=== PATIENT | female | born 1955 | race Caucasian/White ===

== ENCOUNTER 2018-11-20 17:02 | Inpatient (IN) | payer MEDICARE, OTHER ==
[~2018-11-20] VITALS: Ht 157.5 cm; Wt 66.7 kg
[2018-11-20 20:00] VITALS: BP 111/66; PULSE 115; RESP 18
[2018-11-20 21:00] VITALS: Ht 157.5 cm; Wt 66.7 kg
[2018-11-20] MEDS ORDERED: CLZP100T PO (22:48)
[2018-11-20] MEDS ORDERED: EST2 PO (22:48)
[2018-11-20] MEDS ORDERED: PERP2TAB PO (22:48)
[2018-11-20] MEDS ORDERED: OMEP40CA6 PO (22:48)
[2018-11-20] MEDS ORDERED: TRAN10TA PO (22:48)
[2018-11-20] MEDS ORDERED: RANI150T35 PO (22:48)
[2018-11-20] MEDS ORDERED: VANC125C10 PO (22:48)
[2018-11-20] MEDS ORDERED: LEVO25TA PO (22:48)
[2018-11-20] MEDS ORDERED: METH20TA PO (22:48)
[2018-11-20] MEDS ORDERED: [UNRECOGNIZED DRUG - CODE] PO (22:48)
[2018-11-20] MEDS ORDERED: CELE200C PO (22:48)
[2018-11-20] MEDS ORDERED: DIAZ2TAB3 PO (22:48)
[2018-11-20] MEDS ORDERED: DIVA-16 PO ×2 (22:48)
[2018-11-20] MEDS ORDERED: GABA100C14 PO (22:48)
[2018-11-20] MEDS ORDERED: HYDR-3980 PO (22:48)
[2018-11-20] MEDS ORDERED: CHOL100062 PO (22:48)
[2018-11-20] MEDS ORDERED: MESA500C PO (22:48)
[2018-11-20] MEDS: HYDROCODONE/APAP (10/325) TAB PO PRN (23:12)
[2018-11-20] MEDS ORDERED: CLOZAPINE 100 MG TABLET PO SCH (23:30)
[2018-11-20] MEDS ORDERED: METHYLPHENIDATE 20 MG TAB PO SCH (23:30)
[2018-11-21] MEDS: PANTOPRAZOLE (EC) 40 MG TAB PO SCH ×3 (01:02→18:51)
[2018-11-21] MEDS: DIAZEPAM 2 MG TAB PO SCH ×3 (01:03→21:10)
[2018-11-21] MEDS: CELECOXIB 200 MG CAP PO SCH ×3 (01:03→21:09)
[2018-11-21] MEDS: DIVALPROEX (ER) 250 MG TAB PO SCH ×3 (01:04→21:10)
[2018-11-21] MEDS: RANITIDINE 150 MG TAB PO SCH ×3 (01:11→21:10)
[2018-11-21] MEDS: VANCOMYCIN HCL 250 MG/5ML POSYG PO SCH ×5 (02:12→23:29)
[2018-11-21] MEDS: PERPHENAZINE 4 MG TAB PO SCH ×3 (02:13→20:01)
[2018-11-21] MEDS: MESALAMINE (SR) 250 MG CAP PO SCH ×3 (02:13→21:09)
[2018-11-21] MEDS: ESTRADIOL 1 MG TAB PO SCH ×2 (02:13→21:10)
[2018-11-21 02:23] VITALS: BP 96/77; PULSE 104; RESP 18
[2018-11-21 07:00] VITALS: BP 106/62; PULSE 99; RESP 18
[2018-11-21] MEDS ORDERED: CELECOXIB 200 MG CAP PO SCH (09:00)
[2018-11-21] MEDS ORDERED: DIAZEPAM 2 MG TAB PO SCH (09:00)
[2018-11-21] MEDS ORDERED: PARNATE PO SCH (09:00)
[2018-11-21] MEDS: CHOLECALCIFEROL 1,000 UNIT TAB PO SCH (09:42)
[2018-11-21] MEDS: HYDROCODONE/APAP (10/325) TAB PO PRN ×3 (09:42→21:31)
[2018-11-21] MEDS: METHYLPHENIDATE 5 MG TAB PO SCH ×2 (11:56→17:00)
--- NOTE | 2018-11-21 13:21 | HP ---
DATE OF ADMISSION: 11/20/2018 CHIEF COMPLAINT: Right ankle fracture. C. diff colitis. HISTORY OF PRESENT ILLNESS: This is a 63-year-old female with a past medical history of Crohn diseas e, history of bipolar disorder, history of Beltre syndrome, history of hypothyroidism, history of obst ructive sleep apnea, who was admitted to an outside hospital with shortness of breath and cough. The patient stated that she was feeling weak. As a result, she was brought into the Emergency Room. Th e patient also stated prior to being brought to the Emergency Room, she felt dizzy, fell and twisted her ankle. Upon arrival to the Emergency Room, the patient was diagnosed initially with sepsis, was started on IV antibiotic therapy. The patient was also diagnosed with pneumonia. The patient was tr eated with bronchodilators, nebulizers. During the hospital course, the patient was then found out t o have C diff. colitis, was treated with oral vancomycin, was seen by manager immunology. Additional ly, the patient also noted to have right malleolar fracture, was seen by orthopedist and underwent op en reduction internal fixation of her right ankle fracture. However, given the patient's significant decline in premorbid state, the patient was transferred to [facility] for continue d care. Upon my evaluation of the patient at this time, she is currently stable. Denies any fevers, chills, nausea, vomiting. PAST MEDICAL HISTORY: As stated above, history of Crohn's disease, history of Beltre syndrome, histor y of osteoarthritis, history of bronchiectasis, history of sleep apnea, history of hypothyroidism, hi story of bipolar disorder, history of depression, history of fibromyalgia. PAST SURGICAL HISTORY: Status post open reduction internal fixation, left foot. FAMILY HISTORY: Beltre syndrome. MEDICATIONS: Medications have been reviewed. ALLERGIES: Have been reviewed. REVIEW OF SYSTEMS: A 14-point review of systems conducted. Pertinent positives stated in HPI, other rose negative. PHYSICAL EXAMINATION: VITAL SIGNS: Blood pressure is 106/62, pulse 99, respiration 18, temperature 97.3. HEENT: Head is normocephalic. NECK: Supple. HEART: Regular rate. LUNGS: Show diminished breath sounds at base. ABDOMEN: Soft, nontender to palpation without rebound or guarding. EXTREMITIES: Negative for clubbing, cyanosis, no edema in right leg. Left ankle is in a cast, clean , dry, intact. DERMATOLOGIC: No rashes. MUSCULOSKELETAL: No joint effusions. NEUROLOGIC: No focal deficits. The patient's medications have been reviewed. LABORATORY DATA: Has been reviewed. ASSESSMENT AND PLAN: 1. Right malleolar fracture. The patient is status post open reduction internal fixation. Patient is currently nonweightbearing. Will continue. Continue physical therapy, continue pain control. 2. Clostridium difficile colitis. Continue oral vancomycin. 3. Sepsis secondary to bronchiectasis. The patient has completed antibiotic course. 4. History of Crohn disease. The patient is currently on Pentaza. Will continue. Follow up with Víctor Rivers in outpatient setting. 5. Bipolar disorder. Continue Clozapine. 6. Anxiety disorder. Continue Valium. 7. Depression. Continue medical management. 8. History of Beltre syndrome. Continue to monitor. 9. Anemia. Continue to monitor hemoglobin and hematocrit levels. 10. Acute kidney injury. Etiology likely due to hemodynamics. Continue current treatment plan. Co ntinue supportive care, renally dose all meds. The patient's urinalysis was reviewed, does show evid ence of pyuria. We will check a urine culture. 11. Pyuria, rule out urinary tract infection. Check a urinary culture. 12. Gastrointestinal and deep vein thrombosis prophylaxis. 13. Attention deficit hyperactivity disorder. The patient is currently on methylphenidate. 14. Gastrointestinal and deep venous thrombosis prophylaxis. Please note I spent an additional 30 minutes of [id number] time with the patient discussing advance d directives and code status. The patient is FULL CODE. Dictated By: NICK ROSENBERG/KODAK Conf#: [id number] DID#: [id number]
--- NOTE | 2018-11-21 13:40 | CONS ---
DATE OF ADMISSION: 11/20/2018 DATE OF CONSULTATION: 11/21/2018 REHABILITATION POST-ADMISSION PHYSICIAN EVALUATION REHABILITATION IMPAIRMENT CATEGORY: Pulmonary debility secondary to acute respiratory failure, pneum onia and sepsis. ACTIVE COMORBIDITIES: 1. Other orthopedic injury with bimalleolar right ankle fracture status post open reduction internal fixation. 2. Acute kidney injury. 3. C. difficile. 4. History of bipolar disorder. 5. Crohn disease. 6. Fibromyalgia. 7. Hypothyroidism. 8. Legally blind. 9. History of uterine cancer. 10. Gastritis. 11. Impairments in self-care and mobility. HISTORY OF PRESENT ILLNESS: The patient is a 63-year-old female with a history of multiple medical c omorbidities who is status post a fall with resultant bimalleolar right ankle fracture. The patient was also admitted with acute respiratory failure, pneumonia and sepsis. The patient's hospital cours e was also notable for acute kidney injury secondary to dehydration. The patient's ankle fracture di d require an ORIF and patient has been made nonweightbearing to the right lower extremity. [facility] also notable for Clostridium difficile colitis. Patient noted to have signi ficant impairments in self-care and mobility as compared to baseline, and has been cleared to transfe r to the rehabilitation unit for comprehensive interdisciplinary rehab care. FUNCTIONAL HISTORY: Prior to recent events, she was independent in self-care tasks and mobility. Cu rrently, she requires moderate assist for self-care and mobility tasks. I have reviewed the preadmission screen and patient's current functional status is consistent with [facility] preadmission screen. FAMILY AND SOCIAL HISTORY: The patient lives at home in what she describes as a large mobile home. She hopes to return there upon discharge. PAST MEDICAL HISTORY: 1. Fibromyalgia. 2. Bipolar disorder. 3. Hypothyroidism. 4. Crohn's disease. 5. History of uterine cancer. 6. Gastritis. 7. Legally blind. CURRENT MEDICATIONS: 1. Pentaza. 2. Ritalin. 3. Parnate. 4. Celebrex. 5. Estradiol. 6. Levothyroxine. 7. Diazepam. 8. Omeprazole. 9. Ranitidine. 10. Lorazepam. 11. Vitamin B. ALLERGIES: DEMEROL and EPINEPHRINE. PHYSICAL EXAMINATION: VITAL SIGNS: She is currently afebrile with stable vital signs. HEENT: The patient with decreased visual acuity. Oropharynx clear. NECK: Supple. LUNGS: Clear anteriorly. CARDIAC: S1, S2. ABDOMEN: Soft, nontender, positive bowel sounds. NEUROLOGIC: She is awake and alert and oriented x3. She can follow simple 1-step commands. She dem onstrates antigravity strength in bilateral upper extremity and lower extremities. She has a notable short leg cast in place on the right lower extremity. She is neurovascularly intact, able to wiggle toes on the right lower extremity. PLAN: The patient has been admitted for comprehensive interdisciplinary acute rehab and is anticipat ed to tolerate 3 hours of daily therapy in divided doses for at least 5/7 days a week. The treatment plan will include: 1. Physical therapy to focus on bed mobility, transfers, wheelchair mobility, and limited household ambulation with the goal of having the patient reach a standby assist level. 2. Occupational therapy to focus on hygiene, grooming, dressing, bathing, and toileting activities w ith goal of having the patient reach a standby assist level at the seated level. 3. Rehabilitation nursing for carryover of therapeutic interventions, the goal of continent of bowel and bladder, and the goal of patient education with regard to the aforementioned issues. 4. Neuropsychology for assistance with adjustment to disease process and monitoring and treatment gi mayra the patient's history of bipolar disorder. REHABILITATION BARRIER: Nonweightbearing to the right lower extremity. INTERVENTION FOR BARRIER: Interdisciplinary approach. ESTIMATED LENGTH OF STAY: 14 days. DISPOSITION GOAL: Home. As a board certified rehabilitation services coordinator in physical medicine and rehabilitation, I attest that this patient qualifies for an interdisciplinary acute rehabilitation unit stay and is best managed a t this level of care. The patient is anticipated to make reasonable goals in a reasonable period of time. After a thorough review of the patient's medical records and full examination, I believe that the patient meets criteria for acute rehabilitation level of care under CMS guidelines. Dictated By: JONNIE THAYER/KODAK Conf#: [id number] DID#: [id number]
[2018-11-21 14:00] VITALS: BP 106/73; PULSE 120; RESP 18
[2018-11-21] MEDS ORDERED: TRANYLCYPROMINE 10 MG PO SCH (17:30)
[2018-11-21 20:00] VITALS: BP 110/68; PULSE 102; RESP 18
[2018-11-21] MEDS ORDERED: CLOZAPINE 100 MG TABLET PO SCH ×2 (21:00)
[2018-11-21] MEDS: CLOZAPINE 100 MG TABLET PO SCH (21:27)
[2018-11-22 02:00] VITALS: BP 112/69; PULSE 102; RESP 18
[2018-11-22] MEDS: VANCOMYCIN HCL 250 MG/5ML POSYG PO SCH ×5 (06:33→23:08)
[2018-11-22] MEDS: METHYLPHENIDATE 5 MG TAB PO SCH ×2 (06:34→08:23)
[2018-11-22] MEDS: PANTOPRAZOLE (EC) 40 MG TAB PO SCH ×3 (06:41→17:46)
[2018-11-22 08:00] VITALS: BP 103/64; PULSE 103; RESP 18
[2018-11-22] MEDS ORDERED: TRANYLCYPROMINE 10 MG PO SCH (09:00)
[2018-11-22] MEDS: MESALAMINE (SR) 250 MG CAP PO SCH ×2 (09:45→20:39)
[2018-11-22] MEDS: TRANYLCYPROMINE 10 MG PO SCH (09:45)
[2018-11-22] MEDS: CHOLECALCIFEROL 1,000 UNIT TAB PO SCH (09:46)
[2018-11-22] MEDS: DIAZEPAM 2 MG TAB PO SCH ×2 (09:46→20:40)
[2018-11-22] MEDS: PERPHENAZINE 4 MG TAB PO SCH ×2 (09:46→20:41)
[2018-11-22] MEDS: RANITIDINE 150 MG TAB PO SCH ×2 (09:46→20:38)
[2018-11-22] MEDS: CELECOXIB 200 MG CAP PO SCH ×2 (09:47→20:40)
[2018-11-22] MEDS: DIVALPROEX (ER) 250 MG TAB PO SCH ×2 (09:47→20:39)
--- NOTE | 2018-11-22 10:09 | PN ---
DATE: 11/22/2018 SUBJECTIVE: The patient is stable, no events overnight. No fevers, chills, nausea, or vomiting. OBJECTIVE: VITAL SIGNS: Blood pressure is 112/69, respirations 18, pulse 102, temperature is 98.1. HEENT: Head is normocephalic. NECK: Supple. HEART: Regular rate. LUNGS: Show diminished breath sounds at the base. ABDOMEN: Soft, nontender to palpation without rebound or guarding. EXTREMITIES: Negative for clubbing, cyanosis, no edema. DERMATOLOGIC: No rashes. MUSCULOSKELETAL: No joint effusion. NEUROLOGIC: No change in exam. MEDICATIONS: Reviewed. LABORATORY DATA: From 11/22/2018 was reviewed. ASSESSMENT AND PLAN: 1. Right malleolar fracture. The patient is status post open reduction internal fixation. Continue current treatment plan. Continue physical therapy and occupational therapy, continue pain control. 2. Clostridium difficile colitis. Continue oral vancomycin. We will place an ID consult for evalua tion. 3. Sepsis secondary to bronchiectasis. The patient is completing antibiotic course. 4. History of Crohn's disease. Continue Pentasa. 5. Bipolar disorder, schizophrenia. Continue to clozapine. 6. ADHD. Continue Ritalin. 7. Anxiety disorder. Continue Valium. 8. Depression. Continue medical management. 9. History of Beltre syndrome. Continue to monitor. 10. Anemia. Monitor hemoglobin and hematocrit levels. 11. Nonoliguric acute kidney injury. Etiology is secondary to hemodynamics. Renal function has bee n stable. Continue current treatment plans, supportive care, and renally dose all medicines. 12. Pyuria. The patient is being ruled out for urinary tract infection. Follow up urine culture. 13. Gastrointestinal and deep vein thrombosis prophylaxis. Continue proton pump inhibitor. Start t he patient on Lovenox. 14. Hypomagnesemia, replete with magnesium sulfate and magnesium oxide. Dictated By: NICK CORBIN DO NR/NTS Conf#: [id number] DID#: [id number] CC: JONNIE LAIRD MD; ANILA NATH DO;*EndCC*
[2018-11-22] MEDS: METHYLPHENIDATE 20 MG TAB PO SCH ×2 (11:00→15:00)
[2018-11-22] MEDS ORDERED: GENTAMICIN IV PER PHARMACY XX SCH (11:00)
[2018-11-22] MEDS ORDERED: GENTAMICIN 350 MG in DEXTROSE 5% 100 ML IVPB SCH (11:30)
[2018-11-22] MEDS: MAGNESIUM OXIDE 400 MG TAB PO SCH (12:47)
[2018-11-22] MEDS: HYDROCODONE/APAP (10/325) TAB PO PRN ×3 (12:48→23:04)
--- NOTE | 2018-11-22 12:53 | PN ---
Date/Time of Note Date/Time of Note DATE: 11/22/18 TIME: 12:52 Objective Vital Signs Date Temp Pulse Resp B/P (MAP) Pulse Ox O2 O2 Flow FiO2 Time Delivery Rate 11/22/18 3.0 04:41 11/22/18 98.1 102 18 112/69 97 Room Air 02:00 (83) Intake and Output 11/21/18 11/21/18 11/22/18 1515:00 23:00 07:00 IntakeIntake Total 800 ml 440 ml 360 ml OutputOutput Total 600 ml 90 ml BalanceBalance 200 ml 350 ml 360 ml Exam pulm-cta max transfer Results/Medications Result Diagram: 11/22/18 0653 11/22/18 0653 Results 24 hrs Laboratory Tests Test 11/22/18 06:53 White Blood Count 11.2 H Red Blood Count 3.29 L Hemoglobin 9.2 L Hematocrit 31.0 L Mean Corpuscular Volume 94.2 Mean Corpuscular Hemoglobin 28.0 L Mean Corpuscular Hemoglobin Concent 29.7 L Red Cell Distribution Width 15.0 H Platelet Count 170 Mean Platelet Volume 10.9 H Immature Granulocytes % 3.000 H Neutrophils % 61.8 Lymphocytes % 18.0 Monocytes % 10.2 Eosinophils % 4.9 Basophils % 2.1 H Nucleated Red Blood Cells % 0.0 Immature Granulocytes # 0.340 H Neutrophils # 6.9 Lymphocytes # 2.0 Monocytes # 1.1 H Eosinophils # 0.6 H Basophils # 0.2 H Nucleated Red Blood Cells # 0.0 Sodium Level 144 Potassium Level 4.4 Chloride Level 103 Carbon Dioxide Level 32 H Anion Gap 9 Blood Urea Nitrogen 34 H Creatinine 1.05 H Est Glomerular Filtrat Rate mL/min 53 L Glucose Level 101 Calcium Level 9.7 Phosphorus Level 5.0 H Magnesium Level 1.6 L Medications Current Medications Acetaminophen/ Hydrocodone Bitart ([place] (10/325)) 1 tab Q4H PRN PO MODERATE PAIN LEVEL 4-6 Last administered on 11/22/18at 12:48; Admin Dose 1 TAB; Start 11/20/18 at 23:30 Cholecalciferol (Vitamin D) 1,000 unit DAILY PO Last administered on 11/22/18at 09:46; Admin Dose 1,000 UNIT; Start 11/21/18 at 09:00 Divalproex Sodium (Depakote Er) 500 mg DAILY PO Last administered on 11/22/18 09:47; Admin Dose 500 MG; Start 11/21/18 at 09:00 Celecoxib (Celebrex) 200 mg BID PO Last administered on 11/22/18 09:47; Admin Dose 200 MG; Start 11/20/18 at 23:30 Diazepam (Valium) 2 mg BID PO Last administered on 11/22/18 09:46; Admin Dose 2 MG; Start 11/20/18 at 23:30 Divalproex Sodium (Depakote Er) 750 mg HS PO Last administered on 11/21/18 21:10; Admin Dose 750 MG; Start 11/20/18 at 23:30 Estradiol (Estrace) 2 mg HS PO Last administered on 11/21/18 21:10; Admin Dose 2 MG; Start 11/20/18 at 23:30 Mesalamine (Pentasa) 2,000 mg BID PO Last administered on 11/22/18 09:45; Admin Dose 2,000 MG; Start 11/20/18 at 23:30 Pantoprazole (Protonix Tab) 40 mg BID@0600,1800 PO Last administered on 11/22/18 08:21; Admin Dose 40 MG; Start 11/20/18 at 23:30 Perphenazine (Trilafon) 2 mg TID PRN PO AGITATION; Start 11/20/18 at 23:30 Perphenazine (Trilafon) 4 mg BID PO Last administered on 11/22/18 09:46; Admin Dose 4 MG; Start 11/21/18 at 01:00 Ranitidine HCl (Zantac) 150 mg BID PO Last administered on 11/22/18 09:46; Admin Dose 150 MG; Start 11/20/18 at 23:30 Vancomycin HCl (Vancomycin Oral Syringe) 125 mg Q6 PO Last administered on 11/22/18 12:47; Admin Dose 125 MG; Start 11/21/18 at 00:00 Clozapine (Clozaril) 200 mg HS PO Last administered on 11/21/18 21:27; Admin Dose 200 MG; Start 11/21/18 at 21:00 Tranylcypromine Sulfate (Parnate) 60 mg DAILY@0700 PO Last administered on 11/22/18 09:45; Admin Dose 60 MG; Start 11/22/18 at 07:00 Magnesium Oxide (Mag-Ox 400) 400 mg DAILY PO Last administered on 11/22/18at 12:47; Admin Dose 400 MG; Start 11/22/18 at 09:30 Enoxaparin Sodium (Lovenox) 30 mg DAILY SC ; Start 11/23/18 at 09:00 Methylphenidate HCl (Methylin) 20 mg TID@0700,1100,1500 PO ; Start 11/22/18 at 11:00 Gentamicin Sulfate 350 mg/ Dextrose 108.75 ml @ 108.75 mls/hr Q36H IVPB ; Start 11/22/18 at 11:30 Miscellaneous Information (*Rx Drug Level Order Reminder*) RANDOM GENTAMICIN LEVEL 4... 2300 ONCE XX ; Start 11/22/18 at 23:00; Stop 11/22/18 at 23:01 Assessment/Plan Additional Assessment/Plan Rehab- Pulmonary debility secondary to acute respiratory failure, pneumonia and sepsis; bimalleolar right ankle fracture status post ORIF Continue rehab program Acute kidney injury. C. difficile. History of bipolar disorder. Crohn disease. Fibromyalgia. Hypothyroidism. Legally blind. History of uterine cancer. Gastritis. JONNIE LAIRD MD Nov 22, 2018 12:53
--- NOTE | 2018-11-22 13:46 | CONS ---
DATE OF ADMISSION: 11/20/2018 DATE OF CONSULTATION: 11/22/2018 TYPE OF CONSULTATION: Infectious disease. REASON FOR CONSULTATION: Antibiotic management. HISTORY OF PRESENT ILLNESS: Dilcia Ruffin is a 63-year-old female with history of right ankle fractur e and Clostridium difficile colitis. Past problems include: 1. Crohn's disease. 2. Bipolar disorder. 3. History of Beltre syndrome. 4. Hypothyroidism. 5. Obstructive sleep apnea. She was admitted to an outside hospital with shortness of breath and cough and feeling of weakness. She came to the emergency room with dizziness. She fell and twisted her ankle. She was diagnosed wi th sepsis, started on IV antibiotics and diagnosed with pneumonia, treated with bronchodilators, nebu lizers and antibiotics. During the course of her hospital stay, she was found to have C. difficile a nd was treated with oral vancomycin. She was seen by gastroenterology. She had a right malleolar fr acture, was seen by orthopedics and underwent open reduction and internal fixation of the right ankle . Given the patient's significant decline and premorbid state, the patient was transferred to [facility] for continued care. The patient also has probable history of bro nchiectasis as well as osteoarthritis. PAST MEDICAL HISTORY: As outlined. FAMILY HISTORY: Noncontributory. SOCIAL HISTORY: She does not smoke, drink or abuse drugs. ALLERGIES: NONE TO PENICILLIN, SULFA OR FOODS. MEDICATIONS: Per chart. REVIEW OF SYSTEMS: Noncontributory. PHYSICAL EXAMINATION: GENERAL: The patient is afebrile. Vital signs are stable. SKIN: Without generalized rash. HEENT: Within normal limits. NECK: Supple. LYMPH NODES: None palpable. CHEST: Decreased breath sounds at the bases. HEART: Without murmur or gallop. ABDOMEN: Soft, nontender without organosplenomegaly or masses. EXTREMITIES: Without cyanosis, clubbing or edema. The left ankle is in a cast, clean and dry. RECTAL AND GENITAL: Deferred. NEUROLOGIC: No focal neurological abnormality. HOSPITAL COURSE: The patient's white count on was 9.9, today 11.2, H and H 9.2 and 31.0, platelet co unt 170,000. BUN and creatinine are 34/1.05. Urine is greater than 182 white cells per high powered field. Urine is growing gram-negative rods. She is on oral vancomycin. She has urinary tract infe ction. We are going to put her on gentamicin renal dosage. I will dictate my findings to Dr. Idalia lozada and Dr. Jonnie Vicente. Dictated By: SARAH OMALLEY MD, JD/KODAK Conf#: [id number] DID#: [id number] CC: JONNIE VICENTE MD; ANILA NATH DO;*[facility]*
[2018-11-22 14:00] VITALS: BP 115/75; PULSE 114; RESP 16
[2018-11-22 19:18] VITALS: BP 124/88; PULSE 71; RESP 18
[2018-11-22] MEDS: CLOZAPINE 100 MG TABLET PO SCH (20:37)
[2018-11-22] MEDS: ESTRADIOL 1 MG TAB PO SCH (20:39)
[2018-11-23 02:00] VITALS: BP 118/79; PULSE 87; RESP 18
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
[2018-11-23] MEDS: PANTOPRAZOLE (EC) 40 MG TAB PO SCH ×2 (06:43→17:58)
[2018-11-23] MEDS: VANCOMYCIN HCL 250 MG/5ML POSYG PO SCH ×3 (06:44→17:58)
[2018-11-23 07:00] VITALS: BP 95/56; PULSE 104; RESP 18
[2018-11-23] MEDS: METHYLPHENIDATE 20 MG TAB PO SCH ×3 (07:32→14:35)
[2018-11-23] MEDS: TRANYLCYPROMINE 10 MG PO SCH (07:33)
[2018-11-23] MEDS: CHOLECALCIFEROL 1,000 UNIT TAB PO SCH (08:52)
[2018-11-23] MEDS: RANITIDINE 150 MG TAB PO SCH ×2 (08:53→20:12)
[2018-11-23] MEDS: MESALAMINE (SR) 250 MG CAP PO SCH ×2 (08:54→20:14)
[2018-11-23] MEDS: DIAZEPAM 2 MG TAB PO SCH ×2 (08:55→20:13)
[2018-11-23] MEDS: MAGNESIUM OXIDE 400 MG TAB PO SCH (08:55)
[2018-11-23] MEDS: DIVALPROEX (ER) 250 MG TAB PO SCH ×2 (08:55→20:14)
[2018-11-23] MEDS: PERPHENAZINE 4 MG TAB PO SCH ×2 (08:55→20:15)
[2018-11-23] MEDS: ENOXAPARIN 30 MG/0.3 ML SYG SC SCH (08:57)
[2018-11-23] MEDS: HYDROCODONE/APAP (10/325) TAB PO PRN ×3 (08:57→20:12)
--- NOTE | 2018-11-23 09:23 | PN ---
DATE: 11/23/2018 SUBJECTIVE: The patient is stable, no events overnight. No fevers, chills, nausea, or vomiting. OBJECTIVE: VITAL SIGNS: Blood pressure is 95/56, respirations 18, pulse 104, temperature 97.7. HEENT: Head is normocephalic. NECK: Supple. HEART: Regular rate. LUNGS: Show diminished breath sounds at the base. ABDOMEN: Soft, nontender to palpation without rebound or guarding. EXTREMITIES: Negative for clubbing, cyanosis, no edema. DERMATOLOGIC: No rashes. MUSCULOSKELETAL: No joint effusion. NEUROLOGIC: No change in exam. MEDICATIONS: Reviewed. LABORATORY DATA: Reviewed. ASSESSMENT AND PLAN: 1. Right malleolar fracture. The patient is status post open reduction internal fixation. Continue current treatment plan. Continue physical therapy, and pain control. 2. C. difficile colitis. Continue oral vancomycin. Follow up with infectious disease. 3. Sepsis secondary to bronchiectasis. The patient is completing antibiotic course. 4. History of Crohn's disease. Continue Pentasa. 5. Bipolar disorder, schizophrenia. Continue current medical management. 6. ADHD. Continue Ritalin. 7. Anxiety disorder. Continue Valium. 8. Depression. Continue medical management. 9. History of Beltre syndrome. 10. Anemia. Continue to monitor hemoglobin and hematocrit levels. 11. Nonoliguric acute kidney injury. Etiology is likely due to hemodynamics. Plan is to discontinu e NSAIDs. Continue current treatment plan, supportive care, renally dose all medicines. 12. Pyuria, possible urinary tract infection. The patient is placed on gentamicin. Appreciate ID's evaluation. 13. Hypomagnesemia, status post replacement. Continue to monitor. 14. Gastrointestinal and deep vein thrombosis prophylaxis. Continue proton pump inhibitor and Loven ox. Dictated By: NICK CORBIN DO NR/NTS Conf#: [id number] DID#: [id number] CC: ANILA NATH DO; JONNIE LAIRD MD;*End*
--- NOTE | 2018-11-23 12:41 | PN ---
Date/Time of Note Date/Time of Note DATE: 11/23/18 TIME: 12:41 Subjective Comfortable Objective Vital Signs Date Temp Pulse Resp B/P (MAP) Pulse Ox O2 O2 Flow FiO2 Time Delivery Rate 11/23/18 Nasal 3.0 08:00 Cannula 11/23/18 97.7 104 18 95/56 (69) 97 07:00 Intake and Output 11/22/18 11/22/18 11/23/18 1515:00 23:00 07:00 IntakeIntake Total 908.75 ml BalanceBalance 908.75 ml Exam pulm-cta mod transfer Results/Medications Result Diagram: 11/22/18 0653 11/22/18 0653 Results 24 hrs Laboratory Tests Test 11/22/18 23:10 Random Gentamicin Level 6.5 Medications Current Medications Acetaminophen/ Hydrocodone Bitart ([place] (10/325)) 1 tab Q4H PRN PO MODERATE PAIN LEVEL 4-6 Last administered on 11/23/18 08:57; Admin Dose 1 TAB; Start 11/20/18 at 23:30 Cholecalciferol (Vitamin D) 1,000 unit DAILY PO Last administered on 11/23/18 08:52; Admin Dose 1,000 UNIT; Start 11/21/18 at 09:00 Divalproex Sodium (Depakote Er) 500 mg DAILY PO Last administered on 11/23/18 08:55; Admin Dose 500 MG; Start 11/21/18 at 09:00 Celecoxib (Celebrex) 200 mg BID PO Last administered on 11/22/18 20:40; Admin Dose 200 MG; Start 11/20/18 at 23:30; Status Hold Diazepam (Valium) 2 mg BID PO Last administered on 11/23/18 08:55; Admin Dose 2 MG; Start 11/20/18 at 23:30 Divalproex Sodium (Depakote Er) 750 mg HS PO Last administered on 11/22/18 20:39; Admin Dose 750 MG; Start 11/20/18 at 23:30 Estradiol (Estrace) 2 mg HS PO Last administered on 11/22/18 20:39; Admin Dose 2 MG; Start 11/20/18 at 23:30 Mesalamine (Pentasa) 2,000 mg BID PO Last administered on 11/23/18 08:54; Admin Dose 2,000 MG; Start 11/20/18 at 23:30 Pantoprazole (Protonix Tab) 40 mg BID@0600,1800 PO Last administered on 11/23/18 06:43; Admin Dose 40 MG; Start 11/20/18 at 23:30 Perphenazine (Trilafon) 2 mg TID PRN PO AGITATION; Start 11/20/18 at 23:30 Perphenazine (Trilafon) 4 mg BID PO Last administered on 11/23/18 08:55; Admin Dose 4 MG; Start 11/21/18 at 01:00 Ranitidine HCl (Zantac) 150 mg BID PO Last administered on 11/23/18 08:53; Admin Dose 150 MG; Start 11/20/18 at 23:30 Vancomycin HCl (Vancomycin Oral Syringe) 125 mg Q6 PO Last administered on 11/23/18 11:14; Admin Dose 125 MG; Start 11/21/18 at 00:00 Clozapine (Clozaril) 200 mg HS PO Last administered on 11/22/18 20:37; Admin Dose 200 MG; Start 11/21/18 at 21:00 Tranylcypromine Sulfate (Parnate) 60 mg DAILY@0700 PO Last administered on 11/23/18 07:33; Admin Dose 60 MG; Start 11/22/18 at 07:00 Magnesium Oxide (Mag-Ox 400) 400 mg DAILY PO Last administered on 11/23/18 08:55; Admin Dose 400 MG; Start 11/22/18 at 09:30 Enoxaparin Sodium (Lovenox) 30 mg DAILY SC Last administered on 11/23/18 08:57; Admin Dose 30 MG; Start 11/23/18 at 09:00 Methylphenidate HCl (Methylin) 20 mg TID@0700,1100,1500 PO Last administered on 11/23/18 11:12; Admin Dose 20 MG; Start 11/22/18 at 11:00 Gentamicin Sulfate 350 mg/ Dextrose 108.75 ml @ 108.75 mls/hr Q36H IVPB ; Start 11/24/18 at 02:00 Assessment/Plan Additional Assessment/Plan Rehab- Pulmonary debility secondary to acute respiratory failure, pneumonia and sepsis; bimalleolar right ankle fracture status post ORIF Continue rehab activities Acute kidney injury. C. difficile. History of bipolar disorder. Crohn disease. Fibromyalgia. Hypothyroidism. Legally blind. History of uterine cancer. Gastritis. JONNIE LAIRD MD Nov 23, 2018 12:41
[2018-11-23 14:00] VITALS: BP 100/71; PULSE 106; RESP 18
--- NOTE | 2018-11-23 15:48 | CONS ---
Assessment/Plan Assessment/Plan Hospital Course (Demo Recall) Alert sitting in the wheelchair denies pain no fevers overnight still with ulnar nerve diarrhea. WBC yesterday was 11.2 no labs today Antimicrobials: Oral vancomycin gentamicin Physical examination fragile well-developed elderly white woman who is alert in no distress. Head atraumatic normocephalic sclera nonicteric vehicle mucosa dry neck is supple chest rise symmetrical breath sounds diminished bases heart: S1- S2. Abdomen soft bowel sounds present. Extremities: Right lower extremity in the cast Assessment: 1. Urinary tract infection 2. C. difficile colitis 3. Crohn's disease 4. Bipolar disorder and schizophrenia Plan: Patient remained stable continue present care and antibiotics, monitor renal function closely Consultation Date/Type/Reason Admit Date/Time Nov 20, 2018 at 19:13 Initial Consult Date Type of Consult id Date/Time of Note DATE: 11/23/18 TIME: 15:48 Exam/Review of Systems Exam Vitals Vital Signs Date Temp Pulse Resp B/P (MAP) Pulse Ox O2 O2 Flow FiO2 Time Delivery Rate 11/23/18 98.1 106 18 100/71 94 Nasal 2.0 14:00 (81) Cannula Intake and Output 11/22/18 11/22/18 11/23/18 1515:00 23:00 07:00 IntakeIntake Total 908.75 ml BalanceBalance 908.75 ml Results Result Diagram: 11/22/18 0653 11/22/18 0653 Results 24hrs Laboratory Tests Test 11/22/18 23:10 Random Gentamicin Level 6.5 Medications Medication Current Medications Acetaminophen/ Hydrocodone Bitart ([place] (10/325)) 1 tab Q4H PRN PO MODERATE PAIN LEVEL 4-6 Last administered on 11/23/18at 14:34; Admin Dose 1 TAB; Start 11/20/18 at 23:30 Cholecalciferol (Vitamin D) 1,000 unit DAILY PO Last administered on 11/23/18at 08:52; Admin Dose 1,000 UNIT; Start 11/21/18 at 09:00 Divalproex Sodium (Depakote Er) 500 mg DAILY PO Last administered on 11/23/18at 08:55; Admin Dose 500 MG; Start 11/21/18 at 09:00 Celecoxib (Celebrex) 200 mg BID PO Last administered on 11/22/18at 20:40; Admin Dose 200 MG; Start 11/20/18 at 23:30; Status Hold Diazepam (Valium) 2 mg BID PO Last administered on 11/23/18 08:55; Admin Dose 2 MG; Start 11/20/18 at 23:30 Divalproex Sodium (Depakote Er) 750 mg HS PO Last administered on 11/22/18 20:39; Admin Dose 750 MG; Start 11/20/18 at 23:30 Estradiol (Estrace) 2 mg HS PO Last administered on 11/22/18 20:39; Admin Dose 2 MG; Start 11/20/18 at 23:30 Mesalamine (Pentasa) 2,000 mg BID PO Last administered on 11/23/18 08:54; Admin Dose 2,000 MG; Start 11/20/18 at 23:30 Pantoprazole (Protonix Tab) 40 mg BID@0600,1800 PO Last administered on 11/23/18 06:43; Admin Dose 40 MG; Start 11/20/18 at 23:30 Perphenazine (Trilafon) 2 mg TID PRN PO AGITATION; Start 11/20/18 at 23:30 Perphenazine (Trilafon) 4 mg BID PO Last administered on 11/23/18 08:55; Admin Dose 4 MG; Start 11/21/18 at 01:00 Ranitidine HCl (Zantac) 150 mg BID PO Last administered on 11/23/18 08:53; Admin Dose 150 MG; Start 11/20/18 at 23:30 Vancomycin HCl (Vancomycin Oral Syringe) 125 mg Q6 PO Last administered on 11/23/18 11:14; Admin Dose 125 MG; Start 11/21/18 at 00:00 Clozapine (Clozaril) 200 mg HS PO Last administered on 11/22/18 20:37; Admin Dose 200 MG; Start 11/21/18 at 21:00 Tranylcypromine Sulfate (Parnate) 60 mg DAILY@0700 PO Last administered on 11/23/18 07:33; Admin Dose 60 MG; Start 11/22/18 at 07:00 Magnesium Oxide (Mag-Ox 400) 400 mg DAILY PO Last administered on 11/23/18 08:55; Admin Dose 400 MG; Start 11/22/18 at 09:30 Enoxaparin Sodium (Lovenox) 30 mg DAILY SC Last administered on 11/23/18at 08:57; Admin Dose 30 MG; Start 11/23/18 at 09:00 Methylphenidate HCl (Methylin) 20 mg TID@0700,1100,1500 PO Last administered on 11/23/18at 14:35; Admin Dose 20 MG; Start 11/22/18 at 11:00 Gentamicin Sulfate 350 mg/ Dextrose 108.75 ml @ 108.75 mls/hr Q36H IVPB ; Start 11/24/18 at 02:00 IFRAH BOLANOS NP Nov 23, 2018 15:48
[2018-11-23 20:05] VITALS: BP 94/59; PULSE 110; RESP 18
[2018-11-23] MEDS: ESTRADIOL 1 MG TAB PO SCH (20:13)
[2018-11-23] MEDS: CLOZAPINE 100 MG TABLET PO SCH (20:15)
[2018-11-23] MEDS: PERPHENAZINE 4 MG TAB PO PRN (23:04)
[2018-11-24] MEDS: VANCOMYCIN HCL 250 MG/5ML POSYG PO SCH ×5 (00:17→23:28)
[2018-11-24] MEDS: HYDROCODONE/APAP (10/325) TAB PO PRN ×5 (00:18→23:27)
[2018-11-24] MEDS: GENTAMICIN 350 MG in DEXTROSE 5% 100 ML IVPB SCH (01:53)
[2018-11-24 02:07] VITALS: BP 96/61; PULSE 100; RESP 18
[2018-11-24] MEDS: PANTOPRAZOLE (EC) 40 MG TAB PO SCH ×2 (06:25→18:46)
[2018-11-24] MEDS: METHYLPHENIDATE 20 MG TAB PO SCH ×3 (06:25→15:00)
[2018-11-24] MEDS: TRANYLCYPROMINE 10 MG PO SCH (06:45)
[2018-11-24 07:30] VITALS: BP 89/60; PULSE 47; RESP 20
[2018-11-24] MEDS: MESALAMINE (SR) 250 MG CAP PO SCH ×2 (09:00→21:19)
[2018-11-24] MEDS ORDERED: ALBUTEROL/IPRATROPIUM (NEB) 3 ML AMP HHN PRN (09:30)
--- NOTE | 2018-11-24 09:46 | PN ---
DATE: 11/24/2018 SUBJECTIVE: The patient is stable, no events overnight. OBJECTIVE: VITAL SIGNS: Blood pressure is 89/60, pulse 47, respirations 20, temperature 97.6. HEENT: Head is normocephalic. NECK: Supple. HEART: Regular rate. LUNGS: Show diminished breath sounds at the base. ABDOMEN: Soft, nontender to palpation. No rebound or guarding. EXTREMITIES: Negative for clubbing, cyanosis, no edema. DERMATOLOGIC: No rashes. MUSCULOSKELETAL: No joint effusion. NEUROLOGIC: No change in exam. MEDICATIONS: Have been reviewed. LABORATORY DATA: Has been reviewed. ASSESSMENT AND PLAN: 1. Right bimalleolar fracture. The patient is status post open reduction internal fixation. The pa tient is currently stable. Continue current treatment. Continue pain control. 2. Clostridium difficile colitis. Continue vancomycin. 3. Urinary tract infection. The patient is status post gentamicin. 4. History of Crohn's disease. Continue Pentaza. 5. Bipolar disorder, schizophrenia. Continue medical management. 6. ADH, anxiety disorder, depression. Continue . Continue medical management. 7. History of Lindt syndrome. 8. Anemia. Continue to monitor hemoglobin and hematocrit levels. 9. Renal insufficiency/nonoliguric acute kidney injury. Etiology is likely from hemodynamics. Cont inue to monitor renal function closely. 10. Hypomagnesemia, replete with magnesium sulfate. 11. Gastrointestinal and deep venous thrombosis prophylaxis. Continue proton pump inhibitor and [place] enox. 12. Alkalosis, unclear etiology, possible compensatory. Continue to monitor. Consider checking an ABG. Dictated By: NICK CORBIN DO NR/NTS Conf#: [id number] DID#: [id number] CC: JONNIE LAIRD MD;*EndCC*
[2018-11-24] MEDS: PERPHENAZINE 4 MG TAB PO SCH ×2 (10:20→21:19)
[2018-11-24] MEDS: MAGNESIUM OXIDE 400 MG TAB PO SCH (10:20)
[2018-11-24] MEDS: DIAZEPAM 2 MG TAB PO SCH ×2 (10:20→21:19)
[2018-11-24] MEDS: RANITIDINE 150 MG TAB PO SCH ×2 (10:20→21:19)
[2018-11-24] MEDS: CHOLECALCIFEROL 1,000 UNIT TAB PO SCH (10:20)
[2018-11-24] MEDS: DIVALPROEX (ER) 250 MG TAB PO SCH ×2 (10:20→21:19)
[2018-11-24] MEDS: ENOXAPARIN 30 MG/0.3 ML SYG SC SCH (10:35)
--- NOTE | 2018-11-24 13:24 | PN ---
Date/Time of Note Date/Time of Note DATE: 11/24/18 TIME: 13:23 Subjective Motivated Objective Vital Signs Date Temp Pulse Resp B/P (MAP) Pulse Ox O2 O2 Flow FiO2 Time Delivery Rate 11/24/18 97.6 47 20 89/60 (70) 92 Nasal 2.0 07:30 Cannula Intake and Output 11/23/18 11/23/18 11/24/18 1515:00 23:00 07:00 IntakeIntake Total 1200 ml 108.75 ml OutputOutput Total 800 ml 1 ml BalanceBalance 400 ml 107.75 ml Exam min/mod transfer pulm- cta Results/Medications Result Diagram: 11/24/18 0709 11/24/18 0709 Results 24 hrs Laboratory Tests Test 11/24/18 07:09 White Blood Count 7.5 # Red Blood Count 3.12 L Hemoglobin 8.5 L Hematocrit 29.4 L Mean Corpuscular Volume 94.2 Mean Corpuscular Hemoglobin 27.2 L Mean Corpuscular Hemoglobin Concent 28.9 L Red Cell Distribution Width 15.0 H Platelet Count 146 Mean Platelet Volume 11.3 H Immature Granulocytes % 2.800 H Neutrophils % 52.5 Lymphocytes % 26.0 Monocytes % 9.8 Eosinophils % 6.2 Basophils % 2.7 H Nucleated Red Blood Cells % 0.0 Immature Granulocytes # 0.210 H Neutrophils # 3.9 Lymphocytes # 1.9 Monocytes # 0.7 Eosinophils # 0.5 Basophils # 0.2 H Nucleated Red Blood Cells # 0.0 Sodium Level 142 Potassium Level 4.4 Chloride Level 99 Carbon Dioxide Level 35 H Anion Gap 8 Blood Urea Nitrogen 33 H Creatinine 1.05 H Est Glomerular Filtrat Rate mL/min 53 L Glucose Level 88 Calcium Level 9.3 Phosphorus Level 4.6 Magnesium Level 1.6 L Medications Current Medications Acetaminophen/ Hydrocodone Bitart ([place] (10/325)) 1 tab Q4H PRN PO MODERATE PAIN LEVEL 4-6 Last administered on 11/24/18at 10:41; Admin Dose 1 TAB; Start 11/20/18 at 23:30 Cholecalciferol (Vitamin D) 1,000 unit DAILY PO Last administered on 11/24/18at 10:20; Admin Dose 1,000 UNIT; Start 11/21/18 at 09:00 Divalproex Sodium (Depakote Er) 500 mg DAILY PO Last administered on 11/24/18 10:20; Admin Dose 500 MG; Start 11/21/18 at 09:00 Celecoxib (Celebrex) 200 mg BID PO Last administered on 11/22/18 20:40; Admin Dose 200 MG; Start 11/20/18 at 23:30; Status Hold Diazepam (Valium) 2 mg BID PO Last administered on 11/24/18 10:20; Admin Dose 2 MG; Start 11/20/18 at 23:30 Divalproex Sodium (Depakote Er) 750 mg HS PO Last administered on 11/23/18 20:14; Admin Dose 750 MG; Start 11/20/18 at 23:30 Estradiol (Estrace) 2 mg HS PO Last administered on 11/23/18 20:13; Admin Dose 2 MG; Start 11/20/18 at 23:30 Mesalamine (Pentasa) 2,000 mg BID PO Last administered on 11/23/18 20:14; Admi n Dose 2,000 MG; Start 11/20/18 at 23:30 Pantoprazole (Protonix Tab) 40 mg BID@0600,1800 PO Last administered on 11/24/18 06:25; Admin Dose 40 MG; Start 11/20/18 at 23:30 Perphenazine (Trilafon) 2 mg TID PRN PO AGITATION Last administered on 11/23/18 23:04; Admin Dose 2 MG; Start 11/20/18 at 23:30 Perphenazine (Trilafon) 4 mg BID PO Last administered on 11/24/18 10:20; Admin Dose 4 MG; Start 11/21/18 at 01:00 Ranitidine HCl (Zantac) 150 mg BID PO Last administered on 11/24/18 10:20; Admin Dose 150 MG; Start 11/20/18 at 23:30 Vancomycin HCl (Vancomycin Oral Syringe) 125 mg Q6 PO Last administered on 11/24/18 12:21; Admin Dose 125 MG; Start 11/21/18 at 00:00 Clozapine (Clozaril) 200 mg HS PO Last administered on 11/23/18 20:15; Admin Dose 200 MG; Start 11/21/18 at 21:00 Tranylcypromine Sulfate (Parnate) 60 mg DAILY@0700 PO Last administered on 11/24/18at 06:45; Admin Dose 60 MG; Start 11/22/18 at 07:00 Magnesium Oxide (Mag-Ox 400) 400 mg DAILY PO Last administered on 11/24/18at 10:20; Admin Dose 400 MG; Start 11/22/18 at 09:30 Enoxaparin Sodium (Lovenox) 30 mg DAILY SC Last administered on 11/24/18at 10:35; Admin Dose 30 MG; Start 11/23/18 at 09:00 Methylphenidate HCl (Methylin) 20 mg TID@0700,1100,1500 PO Last administered on 11/24/18at 12:20; Admin Dose 20 MG; Start 11/22/18 at 11:00 Gentamicin Sulfate 350 mg/ Dextrose 108.75 ml @ 108.75 mls/hr Q36H IVPB Last administered on 11/24/18at 01:53; Admin Dose 108.75 MLS/HR; Start 11/24/18 at 02:00 Albuterol/ Ipratropium (Duoneb) 3 ml Q4H RESP THERAPY PRN HHN SHORTNESS OF BREATH; Start 11/24/18 at 09:30 Assessment/Plan Additional Assessment/Plan Rehab- Pulmonary debility secondary to acute respiratory failure, pneumonia and sepsis; bimalleolar right ankle fracture status post ORIF Continue rehab program, progressing well Acute kidney injury. C. difficile. History of bipolar disorder. Crohn disease. Fibromyalgia. Hypothyroidism. Legally blind. History of uterine cancer. Gastritis. JONNIE LAIRD MD Nov 24, 2018 13:24
[2018-11-24 14:00] VITALS: BP 110/76; PULSE 125; RESP 20
--- NOTE | 2018-11-24 14:22 | CONS ---
DATE OF ADMISSION: 11/20/2018 DATE OF CONSULTATION: TYPE OF CONSULTATION: Pulmonary. REASON FOR CONSULTATION: Shortness of breath. Thank you, Dr. Capellan, for this consultation. HISTORY OF PRESENT ILLNESS: This is a 63-year-old lady with a longstanding history of bronchiectasis , recent admission to [facility] for pneumonia where she sustained a mechanical fall and sub sequent right bimalleolar fracture status post open reduction and internal fixation. In addition to recent pneumonia, the patient has history of bronchiectasis and obstructive sleep apnea for which she follows at [facility] pulmonary team based here in the [place]. She currently states she has a troublesome nonproductive cough, but denies any fever or chills. No chest pain or palpitations. PAST MEDICAL HISTORY: 1. Bronchiectasis on supplemental O2 with percussion vest at home: 2. Obstructive sleep apnea with home CPAP. 3. History of Crohn's disease. 4. Bipolar disorder. 5. Beltre syndrome. MEDICATIONS: Per chart. ALLERGIES: 1. EPINEPHRINE. 2. MEPERIDINE. SOCIAL HISTORY: She is a nonsmoker, no alcohol, no history of drug use. FAMILY HISTORY: Noncontributory. SYSTEMS REVIEW: A 12-point review of systems was negative other than that mentioned above. PHYSICAL EXAMINATION: GENERAL: Well-nourished, well-developed lady, comfortable at rest, in no acute distress, talking in full and complete sentences. VITAL SIGNS: Currently afebrile, pulse is 100, blood pressure 89/60, O2 saturation 92% on 2 liters' nasal cannula. NECK: Supple. No JVD or lymphadenopathy. CARDIAC: S1, S2. No added sounds or murmurs. CHEST: Diminished air entry bilaterally. ABDOMEN: Soft, nontender. No guarding or rebound. EXTREMITIES: No cyanosis, clubbing or edema. NEUROLOGIC: Grossly intact. No focal deficits. LABORATORY DATA: White count 7.5, hemoglobin 8.5, platelets 146. BUN 33, creatinine 1.05. DIAGNOSTIC DATA: Chest x-ray is pending at time of this dictation. IMPRESSION AND PLAN: Recent pneumonia with bimalleolar ankle fracture with underlying history of bro nchiectasis and obstructive sleep apnea. The patient will: 1. Continue antibiotics per ID. 2. Obtain sputum cultures. 3. Chest x-ray. 4. Continue supplemental O2. 5. Bronchodilators. 6. Continue noninvasive positive pressure ventilation at night. Dictated By: USHA CAIN MD SV/KODAK Conf#: [id number] DID#: [id number] CC: ANILA NATH DO; JONNIE LAIRD MD;*EndCC*
--- NOTE | 2018-11-24 15:31 | CONS ---
Assessment/Plan Assessment/Plan Hospital Course (Demo Recall) Alert, feels good Antimicrobials: Oral vancomycin gentamicin Physical examination fragile well-developed elderly white woman who is alert in no distress. Head atraumatic normocephalic sclera nonicteric vehicle mucosa dry neck is supple chest rise symmetrical breath sounds diminished bases heart: S1- S2. Abdomen soft bowel sounds present. Extremities: Right lower extremity in the cast Assessment: 1. Urinary tract infection 2. C. difficile colitis 3. Crohn's disease 4. Bipolar disorder and schizophrenia Plan: Remains stable, continue Gentamicin for 4 more days, continue PO Vanco Consultation Date/Type/Reason Admit Date/Time Nov 20, 2018 at 19:13 Initial Consult Date Type of Consult id Date/Time of Note DATE: 11/24/18 TIME: 15:30 Exam/Review of Systems Exam Vitals Vital Signs Date Temp Pulse Resp B/P (MAP) Pulse Ox O2 O2 Flow FiO2 Time Delivery Rate 11/24/18 3.0 15:15 11/24/18 97.8 125 20 110/76 98 Nasal 14:00 (87) Cannula Intake and Output 11/23/18 11/23/18 11/24/18 1515:00 23:00 07:00 IntakeIntake Total 1200 ml 108.75 ml OutputOutput Total 800 ml 1 ml BalanceBalance 400 ml 107.75 ml Results Result Diagram: 11/24/18 0709 11/24/18 0709 Results 24hrs Laboratory Tests Test 11/24/18 07:09 White Blood Count 7.5 # Red Blood Count 3.12 L Hemoglobin 8.5 L Hematocrit 29.4 L Mean Corpuscular Volume 94.2 Mean Corpuscular Hemoglobin 27.2 L Mean Corpuscular Hemoglobin Concent 28.9 L Red Cell Distribution Width 15.0 H Platelet Count 146 Mean Platelet Volume 11.3 H Immature Granulocytes % 2.800 H Neutrophils % 52.5 Lymphocytes % 26.0 Monocytes % 9.8 Eosinophils % 6.2 Basophils % 2.7 H Nucleated Red Blood Cells % 0.0 Immature Granulocytes # 0.210 H Neutrophils # 3.9 Lymphocytes # 1.9 Monocytes # 0.7 Eosinophils # 0.5 Basophils # 0.2 H Nucleated Red Blood Cells # 0.0 Sodium Level 142 Potassium Level 4.4 Chloride Level 99 Carbon Dioxide Level 35 H Anion Gap 8 Blood Urea Nitrogen 33 H Creatinine 1.05 H Est Glomerular Filtrat Rate mL/min 53 L Glucose Level 88 Calcium Level 9.3 Phosphorus Level 4.6 Magnesium Level 1.6 L Medications Medication Current Medications Acetaminophen/ Hydrocodone Bitart ([place] ()) 1 tab Q4H PRN PO MODERATE PAIN LEVEL 4-6 Last administered on 11/24/18 10:41; Admin Dose 1 TAB; Start 11/20/18 at 23:30 Cholecalciferol (Vitamin D) 1,000 unit DAILY PO Last administered on 11/24/18 10:20; Admin Dose 1,000 UNIT; Start 11/21/18 at 09:00 Divalproex Sodium (Depakote Er) 500 mg DAILY PO Last administered on 11/24/18 10:20; Admin Dose 500 MG; Start 11/21/18 at 09:00 Celecoxib (Celebrex) 200 mg BID PO Last administered on 11/22/18 20:40; Admin Dose 200 MG; Start 11/20/18 at 23:30; Status Hold Diazepam (Valium) 2 mg BID PO Last administered on 11/24/18 10:20; Admin Dose 2 MG; Start 11/20/18 at 23:30 Divalproex Sodium (Depakote Er) 750 mg HS PO Last administered on 11/23/18 20:14; Admin Dose 750 MG; Start 11/20/18 at 23:30 Estradiol (Estrace) 2 mg HS PO Last administered on 11/23/18 20:13; Admin Dose 2 MG; Start 11/20/18 at 23:30 Mesalamine (Pentasa) 2,000 mg BID PO Last administered on 11/23/18 20:14; Admin Dose 2,000 MG; Start 11/20/18 at 23:30 Pantoprazole (Protonix Tab) 40 mg BID@0600,1800 PO Last administered on 11/24/18 06:25; Admin Dose 40 MG; Start 11/20/18 at 23:30 Perphenazine (Trilafon) 2 mg TID PRN PO AGITATION Last administered on 11/23/18 23:04; Admin Dose 2 MG; Start 11/20/18 at 23:30 Perphenazine (Trilafon) 4 mg BID PO Last administered on 11/24/18 10:20; Admin Dose 4 MG; Start 11/21/18 at 01:00 Ranitidine HCl (Zantac) 150 mg BID PO Last administered on 11/24/18 10:20; Admin Dose 150 MG; Start 11/20/18 at 23:30 Vancomycin HCl (Vancomycin Oral Syringe) 125 mg Q6 PO Last administered on 11/24/18 12:21; Admin Dose 125 MG; Start 11/21/18 at 00:00 Clozapine (Clozaril) 200 mg HS PO Last administered on 11/23/18 20:15; Admin Dose 200 MG; Start 11/21/18 at 21:00 Tranylcypromine Sulfate (Parnate) 60 mg DAILY@0700 PO Last administered on 11/24/18 06:45; Admin Dose 60 MG; Start 11/22/18 at 07:00 Magnesium Oxide (Mag-Ox 400) 400 mg DAILY PO Last administered on 11/24/18 10:20; Admin Dose 400 MG; Start 11/22/18 at 09:30 Enoxaparin Sodium (Lovenox) 30 mg DAILY SC Last administered on 11/24/18 10:35; Admin Dose 30 MG; Start 11/23/18 at 09:00 Methylphenidate HCl (Methylin) 20 mg TID@0700,1100,1500 PO Last administered on 11/24/18 12:20; Admin Dose 20 MG; Start 11/22/18 at 11:00 Gentamicin Sulfate 350 mg/ Dextrose 108.75 ml @ 108.75 mls/hr Q36H IVPB Last administered on 11/24/18 01:53; Admin Dose 108.75 MLS/HR; Start 11/24/18 at 02:00 Albuterol/ Ipratropium (Duoneb) 3 ml Q4H RESP THERAPY PRN HHN SHORTNESS OF VIRY ATH; Start 11/24/18 at 09:30 IFARH BOLANOS NP Nov 24, 2018 15:31
[2018-11-24] MEDS: CLOZAPINE 100 MG TABLET PO SCH (21:18)
[2018-11-24] MEDS: ESTRADIOL 1 MG TAB PO SCH (21:19)
[2018-11-24 21:32] VITALS: BP 102/61; PULSE 104; RESP 18
--- NOTE | 2018-11-24 22:05 | CONS ---
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 Plan nails debrided x10 with nail nipper. Educated on safety precautions and proper shoe gear. Remain non weight bearing to right lower extremity. Instructed patient to follow up in clinic regarding bunion and hammertoe deformities. Consultation Date/Type/Reason Admit Date/Time Nov 20, 2018 at 19:13 Date/Time of Note DATE: 11/24/18 TIME: 22:04 Hx of Present Illness 63 y/o F multiple comorbidities presents to the floor with painful elongated toe nails. Patient unable to cut herself and says they are too thick. She had recent right ankle surgery ORIF of medial malleolar fracture and placed in a cast. ROS negative except for HPI Past Medical History history of Beltre syndrome, history of osteoarthritis, history of bronchiectasis, history of sleep apnea, history of hypothyroidism, history of bipolar disorder, history of depression, history of fibromyalgia. Home Meds Reported Medications Gabapentin* (Gabapentin*) 100 Mg Capsule, 100 MG PO HS, #90 CAP 11/20/18 Levothyroxine Sodium* (Synthroid*) 25 Mcg Tablet, 0.125 MG PO DAILY, #30 TAB 11/20/18 Clozapine* (Clozaril*) 100 Mg Tab, 200 MG PO HS, TAB 11/20/18 Ranitidine Hcl* (Zantac*) 150 Mg Tablet, 150 MG PO BID, #60 TAB 11/20/18 Methylphenidate Hcl* (Ritalin*) 20 Mg Tablet, 25 MG PO TID, TAB 11/20/18 Perphenazine* (Trilafon*) 2 Mg Tab, 2 MG PO TID PRN for AGITATION, TAB 11/20/18 Celecoxib* (Celebrex*) 200 Mg Capsule, 200 MG PO BID, CAP 11/20/18 Mesalamine* (Pentasa*) 500 Mg Capsule.sa, 2000 MG PO BID, CAP 11/20/18 Hydrocodone/Acetaminophen ([place] 10-325 Tablet) 1 Each Tablet, 1 EACH PO Q4 PRN for PAIN, TAB 11/20/18 Divalproex Sodium* (Divalproex Sodium*) 500 Mg Tablet.dr, 750 MG PO HS, #90 TAB 11/20/18 Diazepam* (Diazepam*) 2 Mg Tablet, 2 MG PO BID, TAB 11/20/18 Perphenazine* (Trilafon*) 4 Mg Tab, 4 MG PO BID, TAB 11/20/18 Divalproex Sodium* (Divalproex Sodium*) 500 Mg Tablet.dr, 500 MG PO BID, #90 TAB 500mg in the AM 11/20/18 Cholecalciferol* (Vitamin D3*) 1,000 Unit Tablet, 1000 UNIT PO DAILY, TAB 11/20/18 Estradiol* (Estrace*) 2 Mg Tab, 3 MG PO HS, TAB 11/20/18 Omeprazole* (Omeprazole*) 40 Mg Capsule.dr, 40 MG PO BID, #30 CAP 11/20/18 Tranylcypromine Sulfate (Parnate) 10 Mg Tab, 80 MG PO DAILY, TAB 11/20/18 Vancomycin Hcl (Vancocin Hcl Oral) 125 Mg Cap, 125 MG PO Q6, CAP 11/20/18 Medications Current Medications Acetaminophen/ Hydrocodone Bitart ([place] ()) 1 tab Q4H PRN PO MODERATE PAIN LEVEL 4-6 Last administered on 11/24/18at 15:55; Admin Dose 1 TAB; Start 11/20/18 at 23:30 Cholecalciferol (Vitamin D) 1,000 unit DAILY PO Last administered on 11/24/18 10:20; Admin Dose 1,000 UNIT; Start 11/21/18 at 09:00 Divalproex Sodium (Depakote Er) 500 mg DAILY PO Last administered on 11/24/18at 10:20; Admin Dose 500 MG; Start 11/21/18 at 09:00 Celecoxib (Celebrex) 200 mg BID PO Last administered on 11/22/18at 20:40; Admin Dose 200 MG; Start 11/20/18 at 23:30; Status Hold Diazepam (Valium) 2 mg BID PO Last administered on 11/24/18at 21:19; Admin Dose 2 MG; Start 11/20/18 at 23:30 Divalproex Sodium (Depakote Er) 750 mg HS PO Last administered on 11/24/18at 21:19; Admin Dose 750 MG; Start 11/20/18 at 23:30 Estradiol (Estrace) 2 mg HS PO Last administered on 11/24/18 21:19; Admin Dose 2 MG; Start 11/20/18 at 23:30 Mesalamine (Pentasa) 2,000 mg BID PO Last administered on 11/24/18 21:19; Admin Dose 2,000 MG; Start 11/20/18 at 23:30 Pantoprazole (Protonix Tab) 40 mg BID@0600,1800 PO Last administered on 11/24/18 18:46; Admin Dose 40 MG; Start 11/20/18 at 23:30 Perphenazine (Trilafon) 2 mg TID PRN PO AGITATION Last administered on 11/23/18 23:04; Admin Dose 2 MG; Start 11/20/18 at 23:30 Perphenazine (Trilafon) 4 mg BID PO Last administered on 11/24/18 21:19; Admin Dose 4 MG; Start 11/21/18 at 01:00 Ranitidine HCl (Zantac) 150 mg BID PO Last administered on 11/24/18 21:19; Admin Dose 150 MG; Start 11/20/18 at 23:30 Vancomycin HCl (Vancomycin Oral Syringe) 125 mg Q6 PO Last administered on 11/24/18 18:47; Admin Dose 125 MG; Start 11/21/18 at 00:00 Clozapine (Clozaril) 200 mg HS PO Last administered on 11/24/18 21:18; Admin Dose 200 MG; Start 11/21/18 at 21:00 Tranylcypromine Sulfate (Parnate) 60 mg DAILY@0700 PO Last administered on 11/24/18 06:45; Admin Dose 60 MG; Start 11/22/18 at 07:00 Magnesium Oxide (Mag-Ox 400) 400 mg DAILY PO Last administered on 11/24/18 10:20; Admin Dose 400 MG; Start 11/22/18 at 09:30 Enoxaparin Sodium (Lovenox) 30 mg DAILY SC Last administered on 11/24/18 10:35; Admin Dose 30 MG; Start 11/23/18 at 09:00 Methylphenidate HCl (Methylin) 20 mg TID@0700,1100,1500 PO Last administered on 11/24/18 12:20; Admin Dose 20 MG; Start 11/22/18 at 11:00 Gentamicin Sulfate 350 mg/ Dextrose 108.75 ml @ 108.75 mls/hr Q36H IVPB Last administered on 11/24/18at 01:53; Admin Dose 108.75 MLS/HR; Start 11/24/18 at 02:00 Albuterol/ Ipratropium (Duoneb) 3 ml Q4H RESP THERAPY PRN HHN SHORTNESS OF BREATH; Start 11/24/18 at 09:30 Miscellaneous Information (*Rx Drug Level Order Reminder*) GENT TR LEVEL PRIOR... 1300 ONCE XX ; Start 11/25/18 at 13:00; Stop 11/25/18 at 13:01 Allergies: Coded Allergies: epinephrine (Verified Allergy, Unknown, 11/20/18) meperidine (Verified Allergy, Unknown, 11/20/18) Past Surgical History ORIF of medial malleolar fracture R ankle Family History Significant Family History: no pertinent family hx Social History Smoking Status: Former smoker Exam/Review of Systems Exam Vitals Vital Signs Date Temp Pulse Resp B/P (MAP) Pulse Ox O2 O2 Flow FiO2 Time Delivery Rate 11/24/18 98.4 104 18 102/61 97 Nasal 3.0 21:32 (75) Cannula Intake and Output 11/23/18 11/23/18 11/24/18 1515:00 23:00 07:00 IntakeIntake Total 1200 ml 108.75 ml OutputOutput Total 800 ml 1 ml BalanceBalance 400 ml 107.75 ml Exam CFT brisk to digits Right lower extremity in below knee cast Left foot 2nd digit crossover deformity with 3rd digit digit contractures noted Deviated 1st MPJ with previous surgical incision site healed Protective sensations present elongated thickened mycotic toe nails. Results Result Diagram: 11/24/18 0709 11/24/18 0709 Results 24hrs Laboratory Tests Test 11/24/18 07:09 White Blood Count 7.5 # Red Blood Count 3.12 L Hemoglobin 8.5 L Hematocrit 29.4 L Mean Corpuscular Volume 94.2 Mean Corpuscular Hemoglobin 27.2 L Mean Corpuscular Hemoglobin Concent 28.9 L Red Cell Distribution Width 15.0 H Platelet Count 146 Mean Platelet Volume 11.3 H Immature Granulocytes % 2.800 H Neutrophils % 52.5 Lymphocytes % 26.0 Monocytes % 9.8 Eosinophils % 6.2 Basophils % 2.7 H Nucleated Red Blood Cells % 0.0 Immature Granulocytes # 0.210 H Neutrophils # 3.9 Lymphocytes # 1.9 Monocytes # 0.7 Eosinophils # 0.5 Basophils # 0.2 H Nucleated Red Blood Cells # 0.0 Sodium Level 142 Potassium Level 4.4 Chloride Level 99 Carbon Dioxide Level 35 H Anion Gap 8 Blood Urea Nitrogen 33 H Creatinine 1.05 H Est Glomerular Filtrat Rate mL/min 53 L Glucose Level 88 Calcium Level 9.3 Phosphorus Level 4.6 Magnesium Level 1.6 L Medications Medication Current Medications Acetaminophen/ Hydrocodone Bitart ([place] (10)) 1 tab Q4H PRN PO MODERATE PAIN LEVEL 4-6 Last administered on 11/24/18 15:55; Admin Dose 1 TAB; Start 11/20/18 at 23:30 Cholecalciferol (Vitamin D) 1,000 unit DAILY PO Last administered on 11/24/18 10:20; Admin Dose 1,000 UNIT; Start 11/21/18 at 09:00 Divalproex Sodium (Depakote Er) 500 mg DAILY PO Last administered on 11/24/18 10:20; Admin Dose 500 MG; Start 11/21/18 at 09:00 Celecoxib (Celebrex) 200 mg BID PO Last administered on 11/22/18 20:40; Admin Dose 200 MG; Start 11/20/18 at 23:30; Status Hold Diazepam (Valium) 2 mg BID PO Last administered on 11/24/18 21:19; Admin Dose 2 MG; Start 11/20/18 at 23:30 Divalproex Sodium (Depakote Er) 750 mg HS PO Last administered on 11/24/18 21:19; Admin Dose 750 MG; Start 11/20/18 at 23:30 Estradiol (Estrace) 2 mg HS PO Last administered on 11/24/18 21:19; Admin Dose 2 MG; Start 11/20/18 at 23:30 Mesalamine (Pentasa) 2,000 mg BID PO Last administered on 11/24/18 21:19; Admin Dose 2,000 MG; Start 11/20/18 at 23:30 Pantoprazole (Protonix Tab) 40 mg BID@0600,1800 PO Last administered on 11/24/18 18:46; Admin Dose 40 MG; Start 11/20/18 at 23:30 Perphenazine (Trilafon) 2 mg TID PRN PO AGITATION Last administered on 11/23/18 23:04; Admin Dose 2 MG; Start 11/20/18 at 23:30 Perphenazine (Trilafon) 4 mg BID PO Last administered on 11/24/18 21:19; Admin Dose 4 MG; Start 11/21/18 at 01:00 Ranitidine HCl (Zantac) 150 mg BID PO Last administered on 11/24/18 21:19; Admin Dose 150 MG; Start 11/20/18 at 23:30 Vancomycin HCl (Vancomycin Oral Syringe) 125 mg Q6 PO Last administered on 11/24/18 18:47; Admin Dose 125 MG; Start 11/21/18 at 00:00 Clozapine (Clozaril) 200 mg HS PO Last administered on 11/24/18 21:18; Admin Dose 200 MG; Start 11/21/18 at 21:00 Tranylcypromine Sulfate (Parnate) 60 mg DAILY@0700 PO Last administered on 06:45; Admin Dose 60 MG; Start 11/22/18 at 07:00 Magnesium Oxide (Mag-Ox 400) 400 mg DAILY PO Last administered on 11/24/18 10:20; Admin Dose 400 MG; Start 11/22/18 at 09:30 Enoxaparin Sodium (Lovenox) 30 mg DAILY SC Last administered on 11/24/18 10:35; Admin Dose 30 MG; Start 11/23/18 at 09:00 Methylphenidate HCl (Methylin) 20 mg TID@0700,1100,1500 PO Last administered on 11/24/18at 12:20; Admin Dose 20 MG; Start 11/22/18 at 11:00 Gentamicin Sulfate 350 mg/ Dextrose 108.75 ml @ 108.75 mls/hr Q36H IVPB Last administered on 11/24/18 01:53; Admin Dose 108.75 MLS/HR; Start 11/24/18 at 02:00 Albuterol/ Ipratropium (Duoneb) 3 ml Q4H RESP THERAPY PRN HHN SHORTNESS OF BREATH; Start 11/24/18 at 09:30 Miscellaneous Information (*Rx Drug Level Order Reminder*) GENT TR LEVEL PRIOR... 1300 ONCE XX ; Start 11/25/18 at 13:00; Stop 11/25/18 at 13:01 HAYLIE MEJIA DPM Nov 24, 2018 22:05
[2018-11-25 02:42] VITALS: BP 136/64; PULSE 102; RESP 18
[2018-11-25] MEDS: PERPHENAZINE 4 MG TAB PO PRN (02:51)
[2018-11-25] MEDS: HYDROCODONE/APAP (10/325) TAB PO PRN ×3 (03:39→20:47)
[2018-11-25] MEDS: VANCOMYCIN HCL 250 MG/5ML POSYG PO SCH ×4 (06:27→23:02)
[2018-11-25] MEDS: METHYLPHENIDATE 20 MG TAB PO SCH ×3 (06:27→15:00)
[2018-11-25] MEDS: PANTOPRAZOLE (EC) 40 MG TAB PO SCH ×2 (06:27→17:53)
[2018-11-25] MEDS: TRANYLCYPROMINE 10 MG PO SCH ×2 (07:00→12:55)
[2018-11-25 08:00] VITALS: BP 102/60; PULSE 112; RESP 19
[2018-11-25] MEDS: DIVALPROEX (ER) 250 MG TAB PO SCH ×3 (09:00→20:46)
[2018-11-25] MEDS: CHOLECALCIFEROL 1,000 UNIT TAB PO SCH ×2 (09:00→12:47)
[2018-11-25] MEDS: PERPHENAZINE 4 MG TAB PO SCH ×2 (09:00→21:27)
[2018-11-25] MEDS: MAGNESIUM OXIDE 400 MG TAB PO SCH ×2 (09:00→12:52)
[2018-11-25] MEDS: MESALAMINE (SR) 250 MG CAP PO SCH ×3 (09:00→20:45)
[2018-11-25] MEDS: RANITIDINE 150 MG TAB PO SCH ×3 (09:00→20:46)
[2018-11-25] MEDS: DIAZEPAM 2 MG TAB PO SCH ×2 (09:00→21:27)
[2018-11-25] MEDS: ENOXAPARIN 30 MG/0.3 ML SYG SC SCH ×2 (09:00→13:07)
--- NOTE | 2018-11-25 09:51 | PN ---
DATE: 11/25/2018 SUBJECTIVE: The patient is stable, no events overnight. No fevers, chills, nausea, vomiting. OBJECTIVE: VITAL SIGNS: Blood pressure is 136/64, respiration 18, pulse 102, temperature 98.2. HEENT: Head is normocephalic. NECK: Supple. HEART: Regular rate. LUNGS: Show diminished breath sounds at the base. ABDOMEN: Soft, nontender to palpation without rebound or guarding. EXTREMITIES: Negative for clubbing, cyanosis, no edema. DERMATOLOGIC: No rashes. MUSCULOSKELETAL: No joint effusion. NEUROLOGIC: No change in exam. MEDICATIONS: The patient's medications have been reviewed. LABORATORY DATA: The patient's laboratory data on 11/24/2018 was reviewed. ASSESSMENT AND PLAN: 1. Right malleolar fracture. The patient is status post open reduction internal fixation. Currentl y stable. Continue physical therapy, continue pain control. Continue occupational therapy. 2. Onychomycosis. Greatly appreciate podiatry's evaluation and help with management. 3. Obstructive sleep apnea. Appreciate pulmonary's evaluation. The patient continues CPAP at night . 4. Clostridium difficile. Continue oral vancomycin. Follow up with infectious disease. 5. Urinary tract infection. Patient is status post gentamicin. 6. History of Crohn's disease. Continue potassium. 7. Bipolar disorder, schizophrenia. Continue medical management. 8. ADHD, anxiety disorder, depression. Continue current treatment plan. 9. History of Beltre syndrome. 10. Anemia. Monitor H and H levels. 11. Hypomagnesemia. Will monitor and replete as needed. 12. Acute kidney injury. Etiology is likely due to hemodynamics. Continue to monitor. 13. Gastrointestinal and deep vein thrombosis prophylaxis. Dictated By: NICK CORBIN DO NR/NTS Conf#: [id number] DID#: [id number] CC: JONNIE LAIRD MD; ANILA NATH DO; USHA CAIN MD;*End*
[2018-11-25 14:00] VITALS: BP 127/65; PULSE 108; RESP 18
[2018-11-25] MEDS: GENTAMICIN 350 MG in DEXTROSE 5% 100 ML IVPB SCH (14:33)
[2018-11-25] MEDS: CLOZAPINE 100 MG TABLET PO SCH (20:45)
[2018-11-25] MEDS: ESTRADIOL 1 MG TAB PO SCH (20:45)
[2018-11-25 21:36] VITALS: BP 97/55; PULSE 105; RESP 18
[2018-11-26 02:00] VITALS: BP 94/61; PULSE 103; RESP 18
[2018-11-26] MEDS: METHYLPHENIDATE 20 MG TAB PO SCH ×3 (06:32→17:51)
[2018-11-26] MEDS: PANTOPRAZOLE (EC) 40 MG TAB PO SCH ×2 (06:32→17:51)
[2018-11-26] MEDS: VANCOMYCIN HCL 250 MG/5ML POSYG PO SCH ×4 (06:32→23:13)
[2018-11-26] MEDS: TRANYLCYPROMINE 10 MG PO SCH (06:32)
[2018-11-26 08:00] VITALS: BP 99/58; PULSE 106
--- NOTE | 2018-11-26 08:13 | PN ---
Date/Time of Note Date/Time of Note DATE: 11/26/18 TIME: 08:13 Subjective C/o loose stools Objective Vital Signs Date Temp Pulse Resp B/P (MAP) Pulse Ox O2 O2 Flow FiO2 Time Delivery Rate 11/26/18 3.0 02:10 11/26/18 97.8 103 18 94/61 (72) 93 Nasal 02:00 Cannula Intake and Output 11/25/18 11/25/18 11/26/18 1515:00 23:00 07:00 IntakeIntake Total 808.75 ml OutputOutput Total 2 ml BalanceBalance 806.75 ml Exam pulm-cta abd-soft min transfer Results/Medications Result Diagram: 11/26/1852 11/26/1852 Results 24 hrs Laboratory Tests Test 11/25/18 13:49 11/26/18 06:52 Gentamicin Level Trough < 0.6 L White Blood Count 9.8 # Red Blood Count 3.09 L Hemoglobin 8.5 L Hematocrit 28.9 L Mean Corpuscular Volume 93.5 Mean Corpuscular Hemoglobin 27.5 L Mean Corpuscular Hemoglobin Concent 29.4 L Red Cell Distribution Width 14.9 H Platelet Count 135 L Mean Platelet Volume 11.5 H Immature Granulocytes % 1.700 H Neutrophils % 65.5 Lymphocytes % 14.4 L Monocytes % 13.5 H Eosinophils % 3.6 Basophils % 1.3 Nucleated Red Blood Cells % 0.0 Immature Granulocytes # 0.170 H Neutrophils # 6.4 Lymphocytes # 1.4 Monocytes # 1.3 H Eosinophils # 0.4 Basophils # 0.1 Nucleated Red Blood Cells # 0.0 Sodium Level 142 Potassium Level 4.2 Chloride Level 99 Carbon Dioxide Level 36 H Anion Gap 7 Blood Urea Nitrogen 18 # Creatinine 0.89 Est Glomerular Filtrat Rate mL/min > 60 Glucose Level 91 Calcium Level 9.1 Phosphorus Level 4.4 Magnesium Level 1.6 L Medications Current Medications Acetaminophen/ Hydrocodone Bitart ([place] (10)) 1 tab Q4H PRN PO MODERATE PAIN LEVEL 4-6 Last administered on 11/25/18at 20:47; Admin Dose 1 TAB; Start 11/20/18 at 23:30 Cholecalciferol (Vitamin D) 1,000 unit DAILY PO Last administered on 11/25/18at 12:47; Admin Dose 1,000 UNIT; Start 11/21/18 at 09:00 Divalproex Sodium (Depakote Er) 500 mg DAILY PO Last administered on 11/25/18 12:55; Admin Dose 500 MG; Start 11/21/18 at 09:00 Celecoxib (Celebrex) 200 mg BID PO Last administered on 11/22/18 20:40; Admin Dose 200 MG; Start 11/20/18 at 23:30; Status Hold Diazepam (Valium) 2 mg BID PO Last administered on 11/25/18 21:27; Admin Dose 2 MG; Start 11/20/18 at 23:30 Divalproex Sodium (Depakote Er) 750 mg HS PO Last administered on 11/25/18 20:46; Admin Dose 750 MG; Start 11/20/18 at 23:30 Estradiol (Estrace) 2 mg HS PO Last administered on 11/25/18 20:45; Admin Dose 2 MG; Start 11/20/18 at 23:30 Mesalamine (Pentasa) 2,000 mg BID PO Last administered on 11/25/18 20:45; Admin Dose 2,000 MG; Start 11/20/18 at 23:30 Pantoprazole (Protonix Tab) 40 mg BID@0600,1800 PO Last administered on 11/26/18 06:32; Admin Dose 40 MG; Start 11/20/18 at 23:30 Perphenazine (Trilafon) 2 mg TID PRN PO AGITATION Last administered on 11/25/18 02:51; Admin Dose 2 MG; Start 11/20/18 at 23:30 Perphenazine (Trilafon) 4 mg BID PO Last administered on 11/25/18 21:27; Admin Dose 4 MG; Start 11/21/18 at 01:00 Ranitidine HCl (Zantac) 150 mg BID PO Last administered on 11/25/18 20:46; Admin Dose 150 MG; Start 11/20/18 at 23:30 Vancomycin HCl (Vancomycin Oral Syringe) 125 mg Q6 PO Last administered on 11/26/18 06:32; Admin Dose 125 MG; Start 11/21/18 at 00:00 Clozapine (Clozaril) 200 mg HS PO Last administered on 11/25/18 20:45; Admin Dose 200 MG; Start 11/21/18 at 21:00 Tranylcypromine Sulfate (Parnate) 60 mg DAILY@0700 PO Last administered on 11/26/18at 06:32; Admin Dose 60 MG; Start 11/22/18 at 07:00 Magnesium Oxide (Mag-Ox 400) 400 mg DAILY PO Last administered on 11/25/18at 12:52; Admin Dose 400 MG; Start 11/22/18 at 09:30 Enoxaparin Sodium (Lovenox) 30 mg DAILY SC Last administered on 11/25/18at 13:07; Admin Dose 30 MG; Start 11/23/18 at 09:00 Methylphenidate HCl (Methylin) 20 mg TID@0700,1100,1500 PO Last administered on 11/26/18at 06:32; Admin Dose 20 MG; Start 11/22/18 at 11:00 Gentamicin Sulfate 350 mg/ Dextrose 108.75 ml @ 108.75 mls/hr Q36H IVPB Last administered on 11/25/18at 14:33; Admin Dose 108.75 MLS/HR; Start 11/24/18 at 02:00 Levalbuterol (Xopenex Neb) 0.31 mg Q4H RESP THERAPY PRN HHN sob; Start 11/26/18 at 08:30; Status UNV Assessment/Plan Additional Assessment/Plan Rehab- Pulmonary debility secondary to acute respiratory failure, pneumonia and sepsis; bimalleolar right ankle fracture status post ORIF Continue rehab program, progressing well Acute kidney injury. C. difficile- continue Vanco History of bipolar disorder. Crohn disease. Fibromyalgia. Hypothyroidism. Legally blind. History of uterine cancer. Gastritis. JONNIE LAIRD MD Nov 26, 2018 08:13
[2018-11-26] MEDS: CHOLECALCIFEROL 1,000 UNIT TAB PO SCH (08:42)
[2018-11-26] MEDS: RANITIDINE 150 MG TAB PO SCH ×2 (08:42→20:46)
[2018-11-26] MEDS: PERPHENAZINE 4 MG TAB PO SCH ×2 (08:42→20:46)
[2018-11-26] MEDS: MESALAMINE (SR) 250 MG CAP PO SCH ×2 (08:42→20:46)
[2018-11-26] MEDS: MAGNESIUM OXIDE 400 MG TAB PO SCH (08:42)
--- NOTE | 2018-11-26 08:42 | PN ---
DATE: 11/26/2018 SUBJECTIVE: The patient is stable, no events overnight. OBJECTIVE: VITAL SIGNS: Blood pressure is 94/61, respirations 18, pulse 103, temperature 97.8. HEENT: Head is normocephalic. NECK: Supple. HEART: Regular rate. LUNGS: Show diminished breath sounds at the base. ABDOMEN: Soft, nontender to palpation without rebound or guarding. EXTREMITIES: Negative for clubbing, cyanosis, no edema. DERMATOLOGIC: No rashes. MUSCULOSKELETAL: No joint effusion. NEUROLOGIC: No change in exam. MEDICATIONS: Reviewed. LABORATORY DATA: Reviewed. ASSESSMENT AND PLAN: 1. Right malleolar fracture. The patient is status post open reduction internal fixation. Currentl y stable. Continue physical therapy, continue pain control. 2. Onychomycosis. Appreciate podiatry's help. The patient is status post nail clipping. Continue to monitor. 3. Obstructive sleep apnea. The patient is refusing CPAP at night. 4. Clostridium difficile. Continue oral vancomycin. 5. Urinary tract infection. Continue gentamicin. 6. History of Crohn's disease. Continue medical management. 7. Bipolar disorder, schizophrenia. Continue current treatment plan. 8. ADHD, anxiety disorder, depression. Continue current medical management. 9. History of Beltre syndrome. 10. Anemia. Continue to monitor hemoglobin and hematocrit levels. 11. Hypomagnesemia. Continue to monitor and replete. 12. Acute kidney injury. Etiology is due to hemodynamics. Renal function is improved. 13. Gastrointestinal and deep vein thrombosis prophylaxis. Dictated By: NICK CORBIN DO NR/NTS Conf#: [id number] DID#: [id number] CC: JONNIE LAIRD MD; ANILA NATH DO; USHA CAIN MD;*EndCC*
[2018-11-26] MEDS: DIAZEPAM 2 MG TAB PO SCH ×2 (08:43→20:46)
[2018-11-26] MEDS: DIVALPROEX (ER) 250 MG TAB PO SCH ×2 (08:43→20:46)
[2018-11-26] MEDS: ENOXAPARIN 30 MG/0.3 ML SYG SC SCH (08:44)
[2018-11-26] MEDS: HYDROCODONE/APAP (10/325) TAB PO PRN ×3 (08:44→20:47)
[2018-11-26] MEDS: PERPHENAZINE 4 MG TAB PO PRN (14:58)
--- NOTE | 2018-11-26 15:40 | CONS ---
Assessment/Plan Assessment/Plan Hospital Course (Demo Recall) ID PROGRESS NOTE CURRENT ABX=Day # =>GENT IV + Vanco liq PO 24H INTERVAL SUMMARY * A/A/O -- speaking politely on the phone to caregiver as she instructs her to bring her specific items from home. * No fevers, VSS, NAD, without dyspnea during lengthy telephone discussion * Still has diarrhea -- WBC normal range LAST 2 samples * Chart reviewed RADIOLOGY * 11/25/18 CXR: Low lung volumes with bibasilar atelectasis.. MICRO * 11/25/18 RESPIRATORY CULTURE Preliminary NO GROWTH AFTER 1 DAY * URINE CULTURE Final Organism 1 HAFNIA ALVEI COLONY COUNT 80,000 - 90,000 CFU/ml Organism 2 CITROBACTER FREUNDII COLONY COUNT 50,000 - 60,000 CFU/ml HAF ALVEI C FREUNDII C FREUNDII M.I.C. RX M.I.C. RX M.I.C. RX --------- --- --------- --- --------- --- AMPICILLIN >=32 R CEFAZOLIN R CEFEPIME <=1 S CEFOTAXIME S R CIPROFLOXACIN <=0.25 S <=0.25 S GENTAMICIN <=1 S <=1 S LEVOFLOXACIN <=0.12 S <=0.12 S MEROPENEM 0.032 S NITROFURANTOIN <=16 S <=16 S TOBRAMYCIN <=1 S <=1 S TRIMETHOPRIM/SULFAMETHOXAZOLE <=20 S <=20 S PIPERACILLIN/TAZOBACTAM >=128 R PHYSICAL EXAMINATION: GENERAL:VSS, NAD HEENT: Unremarkable NECK: Supple, trachea midline. CHEST: Rise symmetrical, without dyspnea on observation HEART: Pulse RRR ABDOMEN: Soft, ND EXTREMITIES: Warm, moves all extremities ID ASSESSMENT 63 yo F admit with: INDICATION FOR REHAB: * Pulmonary debility secondary to acute respiratory failure, pneumonia and sepsis * Bi-malleolar right ankle fracture status post ORIF Urinary tract infection=> GENT C. difficile colitis Crohn's disease Bipolar disorder and schizophrenia Acute kidney injury Fibromyalgia. Hypothyroidism. Legally blind. History of uterine cancer Gastritis. INVASIVES: ABX ALLERGY: KNDA CURRENT ABX: => >GENT IV + Vanco liq PO ID RECOMMENDATIONS 1. Continue current ABX 2. If diarrhea persists -- may consider increase Vanco PO to 250 mg and or add Flagyl Consultation Date/Type/Reason Admit Date/Time Nov 20, 2018 at 19:13 Initial Consult Date Date/Time of Note DATE: 11/26/18 TIME: 15:30 Exam/Review of Systems Exam Vitals Vital Signs Date Temp Pulse Resp B/P (MAP) Pulse Ox O2 O2 Flow FiO2 Time Delivery Rate 11/26/18 Nasal 3.0 08:30 Cannula 11/26/18 97.7 106 99/58 (72) 93 08:00 11/26/18 18 02:00 Intake and Output 11/25/18 11/25/18 11/26/18 1515:00 23:00 07:00 IntakeIntake Total 808.75 ml OutputOutput Total 2 ml BalanceBalance 806.75 ml Results Result Diagram: 11/26/18 0652 11/26/18 0652 Results 24hrs Laboratory Tests Test 11/26/18 06:52 White Blood Count 9.8 # Red Blood Count 3.09 L Hemoglobin 8.5 L Hematocrit 28.9 L Mean Corpuscular Volume 93.5 Mean Corpuscular Hemoglobin 27.5 L Mean Corpuscular Hemoglobin Concent 29.4 L Red Cell Distribution Width 14.9 H Platelet Count 135 L Mean Platelet Volume 11.5 H Immature Granulocytes % 1.700 H Neutrophils % 65.5 Lymphocytes % 14.4 L Monocytes % 13.5 H Eosinophils % 3.6 Basophils % 1.3 Nucleated Red Blood Cells % 0.0 Immature Granulocytes # 0.170 H Neutrophils # 6.4 Lymphocytes # 1.4 Monocytes # 1.3 H Eosinophils # 0.4 Basophils # 0.1 Nucleated Red Blood Cells # 0.0 Sodium Level 142 Potassium Level 4.2 Chloride Level 99 Carbon Dioxide Level 36 H Anion Gap 7 Blood Urea Nitrogen 18 # Creatinine 0.89 Est Glomerular Filtrat Rate mL/min > 60 Glucose Level 91 Calcium Level 9.1 Phosphorus Level 4.4 Magnesium Level 1.6 L Medications Medication Current Medications Acetaminophen/ Hydrocodone Bitart ([place] (10/325)) 1 tab Q4H PRN PO MODERATE PAIN LEVEL 4-6 Last administered on 11/26/18 15:01; Admin Dose 1 TAB; Start 11/20/18 at 23:30 Cholecalciferol (Vitamin D) 1,000 unit DAILY PO Last administered on 11/26/18 08:42; Admin Dose 1,000 UNIT; Start 11/21/18 at 09:00 Divalproex Sodium (Depakote Er) 500 mg DAILY PO Last administered on 11/26/18 08:43; Admin Dose 500 MG; Start 11/21/18 at 09:00 Celecoxib (Celebrex) 200 mg BID PO Last administered on 11/22/18 20:40; Admin Dose 200 MG; Start 11/20/18 at 23:30; Status Hold Diazepam (Valium) 2 mg BID PO Last administered on 11/26/18 08:43; Admin Dose 2 MG; Start 11/20/18 at 23:30 Divalproex Sodium (Depakote Er) 750 mg HS PO Last administered on 11/25/18 20:46; Admin Dose 750 MG; Start 11/20/18 at 23:30 Estradiol (Estrace) 2 mg HS PO Last administered on 11/25/18 20:45; Admin Dose 2 MG; Start 11/20/18 at 23:30 Mesalamine (Pentasa) 2,000 mg BID PO Last administered on 11/26/18 08:42; Admin Dose 2,000 MG; Start 11/20/18 at 23:30 Pantoprazole (Protonix Tab) 40 mg BID@0600,1800 PO Last administered on 11/26/18 06:32; Admin Dose 40 MG; Start 11/20/18 at 23:30 Perphenazine (Trilafon) 2 mg TID PRN PO AGITATION Last administered on 11/26/18 14:58; Admin Dose 2 MG; Start 11/20/18 at 23:30 Perphenazine (Trilafon) 4 mg BID PO Last administered on 11/26/18 08:42; Admin Dose 4 MG; Start 11/21/18 at 01:00 Ranitidine HCl (Zantac) 150 mg BID PO Last administered on 11/26/18 08:42; Admin Dose 150 MG; Start 11/20/18 at 23:30 Vancomycin HCl (Vancomycin Oral Syringe) 125 mg Q6 PO Last administered on 11/26/18 13:32; Admin Dose 125 MG; Start 11/21/18 at 00:00 Clozapine (Clozaril) 200 mg HS PO Last administered on 11/25/18 20:45; Admin Dose 200 MG; Start 11/21/18 at 21:00 Tranylcypromine Sulfate (Parnate) 60 mg DAILY@0700 PO Last administered on 11/26/18 06:32; Admin Dose 60 MG; Start 11/22/18 at 07:00 Magnesium Oxide (Mag-Ox 400) 400 mg DAILY PO Last administered on 11/26/18 08:42; Admin Dose 400 MG; Start 11/22/18 at 09:30 Enoxaparin Sodium (Lovenox) 30 mg DAILY SC Last administered on 11/26/18 08:44; Admin Dose 30 MG; Start 11/23/18 at 09:00 Methylphenidate HCl (Methylin) 20 mg TID@0700,1100,1500 PO Last administered on 11/26/18 13:31; Admin Dose 20 MG; Start 11/22/18 at 11:00 Gentamicin Sulfate 350 mg/ Dextrose 108.75 ml @ 108.75 mls/hr Q36H IVPB Last administered on 11/25/18 14:33; Admin Dose 108.75 MLS/HR; Start 11/24/18 at 02:00 Levalbuterol (Xopenex Neb) 0.31 mg Q4H RESP THERAPY PRN HHN sob; Start 11/26/18 at 08:30 CAMMIE BERGER NP Nov 26, 2018 15:40
[2018-11-26 20:00] VITALS: BP 109/62; PULSE 102; RESP 18
[2018-11-26] MEDS: CLOZAPINE 100 MG TABLET PO SCH (20:45)
[2018-11-26] MEDS: ESTRADIOL 1 MG TAB PO SCH (20:46)
[2018-11-26] MEDS: LEVALBUTEROL (NEB) 0.31 MG/3 ML AMP HHN PRN (22:58)
[2018-11-27] MEDS: GENTAMICIN 350 MG in DEXTROSE 5% 100 ML IVPB SCH (02:06)
[2018-11-27 02:15] VITALS: BP 104/53; PULSE 101; RESP 18
[2018-11-27] MEDS: HYDROCODONE/APAP (10/325) TAB PO PRN ×3 (05:15→19:47)
[2018-11-27] MEDS: PANTOPRAZOLE (EC) 40 MG TAB PO SCH ×2 (06:34→17:17)
[2018-11-27] MEDS: METHYLPHENIDATE 20 MG TAB PO SCH ×3 (06:34→15:00)
[2018-11-27] MEDS: VANCOMYCIN HCL 250 MG/5ML POSYG PO SCH ×4 (06:34→23:08)
[2018-11-27] MEDS: TRANYLCYPROMINE 10 MG PO SCH (06:38)
[2018-11-27 08:00] VITALS: BP 104/59; PULSE 70; RESP 18
[2018-11-27] MEDS: MESALAMINE (SR) 250 MG CAP PO SCH ×2 (09:16→20:46)
[2018-11-27] MEDS: DIVALPROEX (ER) 250 MG TAB PO SCH ×2 (09:16→20:47)
[2018-11-27] MEDS: PERPHENAZINE 4 MG TAB PO SCH ×2 (09:16→20:47)
[2018-11-27] MEDS: MAGNESIUM OXIDE 400 MG TAB PO SCH (09:16)
[2018-11-27] MEDS: DIAZEPAM 2 MG TAB PO SCH ×2 (09:16→20:46)
[2018-11-27] MEDS: CHOLECALCIFEROL 1,000 UNIT TAB PO SCH (09:16)
[2018-11-27] MEDS: ENOXAPARIN 30 MG/0.3 ML SYG SC SCH (09:27)
--- NOTE | 2018-11-27 09:39 | PN ---
DATE: 11/27/2018 SUBJECTIVE: The patient is stable. The patient is complaining about cough and requesting cough syru p. No other events noted. No hemoptysis, hematemesis or hematochezia. OBJECTIVE: VITAL SIGNS: Blood pressure is 104/53, respirations 18, pulse 101, temperature 98.6. HEENT: Head is normocephalic. NECK: Supple. HEART: Regular rate. LUNGS: Show diminished breath sounds at the base. ABDOMEN: Soft, nontender to palpation without rebound or guarding. EXTREMITIES: Negative for clubbing, cyanosis, no edema. DERMATOLOGIC: No rashes. MUSCULOSKELETAL: No joint effusion. NEUROLOGIC: No change in exam. MEDICATIONS: Reviewed. LABORATORY DATA: Reviewed. ASSESSMENT AND PLAN: 1. Right malleolar fracture. The patient is status post ORIF, currently stable. Continue physical therapy, and pain control. 2. Onychomycosis. The patient is status post nail clipping. Continue to monitor. 3. Obstructive sleep apnea. Continue CPAP at night. 4. Clostridium difficile. Continue oral vancomycin. 5. Urinary tract infection. Continue gentamicin. 6. Cough/upper respiratory infection, possible bronchitis. Continue cough syrup. Continue to monit or closely. Continue nebulizers. 7. History of Crohn's disease. Continue medical management. 8. Bipolar disorder, schizophrenia. Continue current treatment plan. 9. ADHD, anxiety disorder, depression. Continue medical management. 10. History of Beltre syndrome. 11. Anemia. Monitor hemoglobin and hematocrit levels. 12. Hypomagnesemia. Continue to monitor and replete. 13. Acute kidney injury, etiology is secondary to hemodynamics. Renal function is improved. Contin ue to monitor. 14. Gastrointestinal and deep vein thrombosis prophylaxis. Dictated By: NICK CORBIN DO NR/NTS Conf#: [id number] DID#: [id number] CC: JONNIE LAIRD MD; ANILA NATH DO; USHA CAIN MD;*EndCC*
[2018-11-27] MEDS: RANITIDINE 150 MG TAB PO SCH ×2 (09:50→20:45)
[2018-11-27] MEDS: FLUCONAZOLE 100 MG TAB PO SCH (12:26)
--- NOTE | 2018-11-27 13:26 | PN ---
Date/Time of Note Date/Time of Note DATE: 11/27/18 TIME: 13:26 Objective Vital Signs Date Temp Pulse Resp B/P (MAP) Pulse Ox O2 O2 Flow FiO2 Time Delivery Rate 11/27/18 3.0 08:29 11/27/18 97.7 70 18 104/59 94 Nasal 08:00 (74) Cannula Intake and Output 11/26/18 11/26/18 11/27/18 1515:00 23:00 07:00 IntakeIntake Total 540 ml 240 ml BalanceBalance 540 ml 240 ml Exam INTERDISCIPLINARY TEAM CONFERENCE Attended by PT, OT, ST, Patient Relations Coordinator, Social Work, Rehabilitation Nursing, Stranding Machine Operator Helper and Import Customer Service ManagerArc Cutter Exam: Pulm- cta Abd- soft BOWEL- Cont, losse stools BLADDER-Cont SKIN- improving OT- DRESSING-min/mod BATHING-mod TOILETING-min PT- BED MOBILITY-min TRANSFERS-min AMBULATION- min/mod A/P- Interdisciplinary team conference held today. Please see interdisciplinary sheet. Working toward d.c. on 12/04 with post discharge follow up of physical therapy, occupational therapy. Results/Medications Result Diagram: 11/26/18 0652 11/26/18 0652 Medications Current Medications Acetaminophen/ Hydrocodone Bitart ([facility] (10/325)) 1 tab Q4H PRN PO MODERATE PAIN LEVEL 4-6 Last administered on 11/27/18at 05:15; Admin Dose 1 TAB; Start 11/20/18 at 23:30 Cholecalciferol (Vitamin D) 1,000 unit DAILY PO Last administered on 11/27/18 09:16; Admin Dose 1,000 UNIT; Start 11/21/18 at 09:00 Divalproex Sodium (Depakote Er) 500 mg DAILY PO Last administered on 11/27/18 09:16; Admin Dose 500 MG; Start 11/21/18 at 09:00 Diazepam (Valium) 2 mg BID PO Last administered on 11/27/18 09:16; Admin Dose 2 MG; Start 11/20/18 at 23:30 Divalproex Sodium (Depakote Er) 750 mg HS PO Last administered on 11/26/18 20:46; Admin Dose 750 MG; Start 11/20/18 at 23:30 Estradiol (Estrace) 2 mg HS PO Last administered on 11/26/18 20:46; Admin Dose 2 MG; Start 11/20/18 at 23:30 Mesalamine (Pentasa) 2,000 mg BID PO Last administered on 11/27/18 09:16; Admin Dose 2,000 MG; Start 11/20/18 at 23:30 Pantoprazole (Protonix Tab) 40 mg BID@0600,1800 PO Last administered on 11/27/18 06:34; Admin Dose 40 MG; Start 11/20/18 at 23:30 Perphenazine (Trilafon) 2 mg TID PRN PO AGITATION Last administered on 11/26/18 14:58; Admin Dose 2 MG; Start 11/20/18 at 23:30 Perphenazine (Trilafon) 4 mg BID PO Last administered on 11/27/18 09:16; Admin Dose 4 MG; Start 11/21/18 at 01:00 Ranitidine HCl (Zantac) 150 mg BID PO Last administered on 11/27/18 09:50; Admin Dose 150 MG; Start 11/20/18 at 23:30 Vancomycin HCl (Vancomycin Oral Syringe) 125 mg Q6 PO Last administered on 11/27/18 11:27; Admin Dose 125 MG; Start 11/21/18 at 00:00 Clozapine (Clozaril) 200 mg HS PO Last administered on 11/26/18 20:45; Admin Dose 200 MG; Start 11/21/18 at 21:00 Tranylcypromine Sulfate (Parnate) 60 mg DAILY@0700 PO Last administered on 11/27/18 06:38; Admin Dose 60 MG; Start 11/22/18 at 07:00 Magnesium Oxide (Mag-Ox 400) 400 mg DAILY PO Last administered on 11/27/18 09:16; Admin Dose 400 MG; Start 11/22/18 at 09:30 Enoxaparin Sodium (Lovenox) 30 mg DAILY SC Last administered on 11/27/18 09:27; Admin Dose 30 MG; Start 11/23/18 at 09:00 Methylphenidate HCl (Methylin) 20 mg TID@0700,1100,1500 PO Last administered on 11/27/18 11:27; Admin Dose 20 MG; Start 11/22/18 at 11:00 Gentamicin Sulfate 350 mg/ Dextrose 108.75 ml @ 108.75 mls/hr Q36H IVPB Last administered on 11/27/18at 02:06; Admin Dose 108.75 MLS/HR; Start 11/24/18 at 02:00 Levalbuterol (Xopenex Neb) 0.31 mg Q4H RESP THERAPY PRN HHN sob Last administered on 11/26/18at 22:58; Admin Dose 0.31 MG; Start 11/26/18 at 08:30 Fluconazole (Diflucan) 100 mg DAILY PO Last administered on 11/27/18at 12:26; Admin Dose 100 MG; Start 11/27/18 at 11:30 JONNIE ALIRD MD Nov 27, 2018 13:26
[2018-11-27 14:00] VITALS: BP 112/72; PULSE 105; RESP 18
--- NOTE | 2018-11-27 15:12 | CONS ---
Assessment/Plan Assessment/Plan Hospital Course (Demo Recall) Still with mild pressurs on urination, no fevers Antimicrobials: Oral vancomycin, gentamicin Physical examination fragile well-developed elderly white woman who is alert in no distress. Head atraumatic normocephalic sclera nonicteric vehicle mucosa dry neck is supple chest rise symmetrical breath sounds diminished bases heart: S1- S2. Abdomen soft bowel sounds present. Extremities: Right lower extremity in the cast Assessment: 1. Urinary tract infection 2. C. difficile colitis 3. Crohn's disease 4. Bipolar disorder and schizophrenia 5. Positive Rosetta albicans in sputum 6. Chronic bladder incontinence status post endometrial cancer with radiation Plan: Remains stable, start Diflucan, continue abx Consultation Date/Type/Reason Admit Date/Time Nov 20, 2018 at 19:13 Initial Consult Date Type of Consult id Date/Time of Note DATE: 11/27/18 TIME: 15:11 Exam/Review of Systems Exam Vitals Vital Signs Date Temp Pulse Resp B/P (MAP) Pulse Ox O2 O2 Flow FiO2 Time Delivery Rate 11/27/18 3.0 08:29 11/27/18 97.7 70 18 104/59 94 Nasal 08:00 (74) Cannula Intake and Output 11/26/18 11/26/18 11/27/18 1515:00 23:00 07:00 IntakeIntake Total 540 ml 240 ml BalanceBalance 540 ml 240 ml Results Result Diagram: 11/26/18 0652 11/26/18 0652 Medications Medication Current Medications Acetaminophen/ Hydrocodone Bitart ([place] (10/325)) 1 tab Q4H PRN PO MODERATE PAIN LEVEL 4-6 Last administered on 11/27/18at 14:51; Admin Dose 1 TAB; Start 11/20/18 at 23:30 Cholecalciferol (Vitamin D) 1,000 unit DAILY PO Last administered on 11/27/18at 09:16; Admin Dose 1,000 UNIT; Start 11/21/18 at 09:00 Divalproex Sodium (Depakote Er) 500 mg DAILY PO Last administered on 11/27/18at 09:16; Admin Dose 500 MG; Start 11/21/18 at 09:00 Diazepam (Valium) 2 mg BID PO Last administered on 11/27/18at 09:16; Admin Dose 2 MG; Start 11/20/18 at 23:30 Divalproex Sodium (Depakote Er) 750 mg HS PO Last administered on 11/26/18 20:46; Admin Dose 750 MG; Start 11/20/18 at 23:30 Estradiol (Estrace) 2 mg HS PO Last administered on 11/26/18 20:46; Admin Dose 2 MG; Start 11/20/18 at 23:30 Mesalamine (Pentasa) 2,000 mg BID PO Last administered on 11/27/18 09:16; Admin Dose 2,000 MG; Start 11/20/18 at 23:30 Pantoprazole (Protonix Tab) 40 mg BID@0600,1800 PO Last administered on 11/27/18 06:34; Admin Dose 40 MG; Start 11/20/18 at 23:30 Perphenazine (Trilafon) 2 mg TID PRN PO AGITATION Last administered on 11/26/18 14:58; Admin Dose 2 MG; Start 11/20/18 at 23:30 Perphenazine (Trilafon) 4 mg BID PO Last administered on 11/27/18 09:16; Admin Dose 4 MG; Start 11/21/18 at 01:00 Ranitidine HCl (Zantac) 150 mg BID PO Last administered on 11/27/18 09:50; Admin Dose 150 MG; Start 11/20/18 at 23:30 Vancomycin HCl (Vancomycin Oral Syringe) 125 mg Q6 PO Last administered on 11/27/18 11:27; Admin Dose 125 MG; Start 11/21/18 at 00:00 Clozapine (Clozaril) 200 mg HS PO Last administered on 11/26/18 20:45; Admin Dose 200 MG; Start 11/21/18 at 21:00 Tranylcypromine Sulfate (Parnate) 60 mg DAILY@0700 PO Last administered on 11/27/18 06:38; Admin Dose 60 MG; Start 11/22/18 at 07:00 Magnesium Oxide (Mag-Ox 400) 400 mg DAILY PO Last administered on 11/27/18 09:16; Admin Dose 400 MG; Start 11/22/18 at 09:30 Enoxaparin Sodium (Lovenox) 30 mg DAILY SC Last administered on 11/27/18 09:27; Admin Dose 30 MG; Start 11/23/18 at 09:00 Methylphenidate HCl (Methylin) 20 mg TID@0700,1100,1500 PO Last administered on 11/27/18at 11:27; Admin Dose 20 MG; Start 11/22/18 at 11:00 Gentamicin Sulfate 350 mg/ Dextrose 108.75 ml @ 108.75 mls/hr Q36H IVPB Last administered on 11/27/18 02:06; Admin Dose 108.75 MLS/HR; Start 11/24/18 at 02:00 Levalbuterol (Xopenex Neb) 0.31 mg Q4H RESP THERAPY PRN HHN sob Last administ ered on 11/26/18at 22:58; Admin Dose 0.31 MG; Start 11/26/18 at 08:30 Fluconazole (Diflucan) 100 mg DAILY PO Last administered on 11/27/18at 12:26; Admin Dose 100 MG; Start 11/27/18 at 11:30 IFRAH BOLANOS NP Nov 27, 2018 15:12
[2018-11-27] MEDS ORDERED: BIMA2.5D BOTH EYES (18:29)
[2018-11-27 20:44] VITALS: BP 104/66; PULSE 95; RESP 16
[2018-11-27] MEDS: ESTRADIOL 1 MG TAB PO SCH (20:47)
[2018-11-27] MEDS: CLOZAPINE 100 MG TABLET PO SCH (20:47)
[2018-11-27] MEDS: ASCORBIC ACID 250 MG TAB PO SCH (21:04)
[2018-11-27] MEDS: GUAIFENESIN/CODEINE 5ML CUP PO PRN (21:04)
[2018-11-28] MEDS: GUAIFENESIN/CODEINE 5ML CUP PO PRN ×2 (00:43→20:50)
[2018-11-28] MEDS: HYDROCODONE/APAP (10/325) TAB PO PRN ×3 (00:43→17:32)
[2018-11-28] MEDS: PERPHENAZINE 4 MG TAB PO PRN (00:43)
[2018-11-28 01:11] VITALS: BP 107/68; PULSE 96; RESP 18
[2018-11-28] MEDS: METHYLPHENIDATE 20 MG TAB PO SCH ×3 (06:01→15:01)
[2018-11-28] MEDS: VANCOMYCIN HCL 250 MG/5ML POSYG PO SCH ×3 (06:01→17:29)
[2018-11-28] MEDS: TRANYLCYPROMINE 10 MG PO SCH (06:01)
[2018-11-28] MEDS: PANTOPRAZOLE (EC) 40 MG TAB PO SCH ×2 (06:01→17:29)
[2018-11-28 08:00] VITALS: BP 101/62; PULSE 98; RESP 16
--- NOTE | 2018-11-28 09:11 | PN ---
DATE: 11/28/2018 SUBJECTIVE: The patient is stable. No events overnight. OBJECTIVE: VITAL SIGNS: Blood pressure is 107/68, respirations 18, pulse 96, temperature 98.2. HEENT: Head is normocephalic. NECK: Supple. HEART: Regular rate. LUNGS: Show diminished breath sounds at the base. ABDOMEN: Soft, nontender to palpation. No rebound or guarding. EXTREMITIES: Negative for clubbing, cyanosis, no edema. DERMATOLOGIC: No rashes. MUSCULOSKELETAL: No joint effusion. NEUROLOGIC: No change in exam. MEDICATIONS: Reviewed. LABORATORY DATA: Reviewed. ASSESSMENT AND PLAN: 1. Right malleolar fracture. The patient is status post open reduction internal fixation, currently stable. Continue physical therapy, continue pain control. 2. Onychomycosis. The patient is status post nail clipping. Continue to monitor. 3. Obstructive sleep apnea. Continue CPAP at night. The patient has refused. 4. Clostridium difficile. Continue oral vancomycin. 5. Urinary tract infection. Continue gentamicin. 6. Possible bronchitis. Continue Robitussin. Monitor closely. Continue nebulizers. 7. History of Crohn's disease. Continue medical management. 8. Bipolar disorder, schizophrenia. Continue current treatment plan. 9. ADHD, anxiety disorder, depression. Continue Ritalin. Continue antidepressant medications. 10. History of Beltre syndrome. 11. Anemia. 12. Hypomagnesemia. Continue to monitor and replete. 13. Acute kidney injury, etiology is secondary to hemodynamics. Renal function is fluctuating, but improving. Continue to monitor. 14. Gastrointestinal and deep vein thrombosis prophylaxis. Dictated By: NICK CORBIN DO NR/NTS Conf#: [id number] DID#: [id number] CC: JONNIE LAIRD MD; USHA CAIN MD; ANILA NATH DO;*EndCC*
[2018-11-28] MEDS: MAGNESIUM OXIDE 400 MG TAB PO SCH (09:17)
[2018-11-28] MEDS: FLUCONAZOLE 100 MG TAB PO SCH (09:17)
[2018-11-28] MEDS: DIVALPROEX (ER) 250 MG TAB PO SCH ×2 (09:17→20:09)
[2018-11-28] MEDS: PREDNISOLONE ACET 0.12% 5 ML OPH BOTH EYES SCH (09:17)
[2018-11-28] MEDS: CHOLECALCIFEROL 1,000 UNIT TAB PO SCH (09:18)
[2018-11-28] MEDS: RANITIDINE 150 MG TAB PO SCH ×2 (09:18→20:09)
[2018-11-28] MEDS: DIAZEPAM 2 MG TAB PO SCH ×2 (09:18→20:09)
[2018-11-28] MEDS: MESALAMINE (SR) 250 MG CAP PO SCH ×2 (09:18→20:08)
[2018-11-28] MEDS: PERPHENAZINE 4 MG TAB PO SCH ×2 (09:18→20:10)
[2018-11-28] MEDS: ENOXAPARIN 30 MG/0.3 ML SYG SC SCH (09:28)
--- NOTE | 2018-11-28 13:14 | PN ---
Date/Time of Note Date/Time of Note DATE: 11/28/18 TIME: 13:12 Subjective No new complaints Objective Vital Signs Date Temp Pulse Resp B/P (MAP) Pulse Ox O2 O2 Flow FiO2 Time Delivery Rate 11/28/18 98.0 98 16 101/62 96 Nasal 3.0 08:00 (75) Cannula Intake and Output 11/27/18 11/27/18 11/28/18 1515:00 23:00 07:00 IntakeIntake Total 800 ml 200 ml BalanceBalance 800 ml 200 ml Exam min transfer min 20 feet Results/Medications Result Diagram: 11/26/18 0652 11/28/18 0554 Results 24 hrs Laboratory Tests Test 11/28/18 05:54 Blood Urea Nitrogen 17 Creatinine 1.07 H Medications Current Medications Acetaminophen/ Hydrocodone Bitart ([facility] (10/325)) 1 tab Q4H PRN PO MODERATE PAIN LEVEL 4-6 Last administered on 11/28/18 11:07; Admin Dose 1 TAB; Start 11/20/18 at 23:30 Cholecalciferol (Vitamin D) 1,000 unit DAILY PO Last administered on 11/28/18 09:18; Admin Dose 1,000 UNIT; Start 11/21/18 at 09:00 Divalproex Sodium (Depakote Er) 500 mg DAILY PO Last administered on 11/28/18 09:17; Admin Dose 500 MG; Start 11/21/18 at 09:00 Diazepam (Valium) 2 mg BID PO Last administered on 11/28/18 09:18; Admin Dose 2 MG; Start 11/20/18 at 23:30 Divalproex Sodium (Depakote Er) 750 mg HS PO Last administered on 11/27/18 20:47; Admin Dose 750 MG; Start 11/20/18 at 23:30 Estradiol (Estrace) 2 mg HS PO Last administered on 11/27/18 20:47; Admin Dose 2 MG; Start 11/20/18 at 23:30 Mesalamine (Pentasa) 2,000 mg BID PO Last administered on 11/28/18 09:18; Admin Dose 2,000 MG; Start 11/20/18 at 23:30 Pantoprazole (Protonix Tab) 40 mg BID@0600,1800 PO Last administered on 11/28/18 06:01; Admin Dose 40 MG; Start 11/20/18 at 23:30 Perphenazine (Trilafon) 2 mg TID PRN PO AGITATION Last administered on 11/28/18 00:43; Admin Dose 2 MG; Start 11/20/18 at 23:30 Perphenazine (Trilafon) 4 mg BID PO Last administered on 11/28/18 09:18; Admin Dose 4 MG; Start 11/21/18 at 01:00 Ranitidine HCl (Zantac) 150 mg BID PO Last administered on 11/28/18 09:18; Admin Dose 150 MG; Start 11/20/18 at 23:30 Vancomycin HCl (Vancomycin Oral Syringe) 125 mg Q6 PO Last administered on 11/28/18 13:00; Admin Dose 125 MG; Start 11/21/18 at 00:00 Clozapine (Clozaril) 200 mg HS PO Last administered on 11/27/18 20:47; Admin Dose 200 MG; Start 11/21/18 at 21:00 Tranylcypromine Sulfate (Parnate) 60 mg DAILY@0700 PO Last administered on 11/28 06:01; Admin Dose 60 MG; Start 11/22/18 at 07:00 Magnesium Oxide (Mag-Ox 400) 400 mg DAILY PO Last administered on 11/28/18 09:17; Admin Dose 400 MG; Start 11/22/18 at 09:30 Enoxaparin Sodium (Lovenox) 30 mg DAILY SC Last administered on 11/28/18 09:28; Admin Dose 30 MG; Start 11/23/18 at 09:00 Methylphenidate HCl (Methylin) 20 mg TID@0700,1100,1500 PO Last administered on 11/28/18 11:06; Admin Dose 20 MG; Start 11/22/18 at 11:00 Gentamicin Sulfate 350 mg/ Dextrose 108.75 ml @ 108.75 mls/hr Q36H IVPB Last administered on 11/27/18 02:06; Admin Dose 108.75 MLS/HR; Start 11/24/18 at 02:00 Levalbuterol (Xopenex Neb) 0.31 mg Q4H RESP THERAPY PRN HHN sob Last administered on 11/26/18 22:58; Admin Dose 0.31 MG; Start 11/26/18 at 08:30 Fluconazole (Diflucan) 100 mg DAILY PO Last administered on 11/28/18at 09:17; Admin Dose 100 MG; Start 11/27/18 at 11:30 Prednisolone Acetate (Pred Mild 0.12%) 1 drop DAILY BOTH EYES Last administered on 11/28/18at 09:17; Admin Dose 1 DROP; Start 11/28/18 at 09:00 Guaifenesin/ Codeine Phosphate (Robitussin Ac Liquid Cup) 10 ml Q4H PRN PO coug h Last administered on 11/28/18at 00:43; Admin Dose 10 ML; Start 11/27/18 at 14:00 Ascorbic Acid (Vitamin C) 250 mg QHS PO Last administered on 11/27/18at 21:04; Admin Dose 250 MG; Start 11/27/18 at 21:00 Assessment/Plan Additional Assessment/Plan Rehab- Pulmonary debility secondary to acute respiratory failure, pneumonia and sepsis; bimalleolar right ankle fracture status post ORIF Continue rehab activities Acute kidney injury. C. difficile- continue Vanco. reportedly less stool output History of bipolar disorder. Crohn disease. Fibromyalgia. Hypothyroidism. Legally blind. History of uterine cancer. Gastritis. JONNIE LAIRD MD Nov 28, 2018 13:14
[2018-11-28] MEDS: GENTAMICIN 350 MG in DEXTROSE 5% 100 ML IVPB SCH (13:25)
[2018-11-28 14:00] VITALS: BP 91/61; PULSE 100; RESP 16
--- NOTE | 2018-11-28 19:38 | PN ---
DATE: 11/28/2018 PSYCHOLOGY -- INDIVIDUAL SESSION - 40500: A followup on a patient who was seen last week. The patient reports that she is making progress. Th e patient is preparing to leave the program next Tuesday. The patient feels like she is making progre ss. The patient's mood has stabilized, feels that she is on her medications and able to handle herse lf regarding that. The patient did report that she talked to her psychiatrist a few days ago. The p atnegrita does feel stable emotionally at the present time and feels like she is making very good progre ss while in the program. The patient is still very frustrated about all her medical problems and wha t is going to happen after discharge. She did say that they are trying to work on what types of thin gs she could do in regard to home health services that would be provided for her. I worked with the patient to try to continue to encourage her to work on her emotional and physical health. The patien t was very receptive. Dictated By: JACQUELYN ALARCON PHD RK/KODAK Conf#: [id number] DID#: [id number] CC: JONNIE LAIRD MD; USHA CAIN MD; ANILA NATH DO;*End*
[2018-11-28] MEDS: ASCORBIC ACID 250 MG TAB PO SCH (20:09)
[2018-11-28] MEDS: CLOZAPINE 100 MG TABLET PO SCH (20:09)
[2018-11-28 20:15] VITALS: BP_SYST 109; BP_SYST 96; BP_DIAS 66; BP_DIAS 69; PULSE 101; PULSE 103; RESP 16
[2018-11-28] MEDS: ESTRADIOL 1 MG TAB PO SCH (20:17)
[2018-11-28] MEDS: LUMIGAN 0.01% EYE DROPS BOTH EYES SCH (20:17)
[2018-11-28] MEDS: LEVALBUTEROL (NEB) 0.31 MG/3 ML AMP HHN PRN (21:18)
[2018-11-29] MEDS: VANCOMYCIN HCL 250 MG/5ML POSYG PO SCH ×4 (00:03→17:17)
[2018-11-29 02:00] VITALS: BP 96/69; PULSE 103; RESP 18
[2018-11-29] MEDS: HYDROCODONE/APAP (10/325) TAB PO PRN ×3 (03:38→20:41)
[2018-11-29] MEDS: GUAIFENESIN/CODEINE 5ML CUP PO PRN ×2 (03:38→17:58)
[2018-11-29] MEDS: PANTOPRAZOLE (EC) 40 MG TAB PO SCH ×2 (06:10→17:17)
[2018-11-29] MEDS: METHYLPHENIDATE 20 MG TAB PO SCH ×3 (06:10→14:53)
[2018-11-29] MEDS: TRANYLCYPROMINE 10 MG PO SCH (06:10)
[2018-11-29 08:00] VITALS: BP 97/61; PULSE 103; RESP 18
[2018-11-29] MEDS: PREDNISOLONE ACET 0.12% 5 ML OPH BOTH EYES SCH (08:17)
[2018-11-29] MEDS: DIAZEPAM 2 MG TAB PO SCH ×2 (08:17→20:41)
[2018-11-29] MEDS: CHOLECALCIFEROL 1,000 UNIT TAB PO SCH (08:18)
[2018-11-29] MEDS: RANITIDINE 150 MG TAB PO SCH ×2 (08:18→20:40)
[2018-11-29] MEDS: FLUCONAZOLE 100 MG TAB PO SCH (08:18)
[2018-11-29] MEDS: PERPHENAZINE 4 MG TAB PO SCH ×2 (08:18→20:39)
[2018-11-29] MEDS: DIVALPROEX (ER) 250 MG TAB PO SCH ×2 (08:18→20:39)
[2018-11-29] MEDS: MAGNESIUM OXIDE 400 MG TAB PO SCH (08:18)
[2018-11-29] MEDS: MESALAMINE (SR) 250 MG CAP PO SCH ×2 (08:18→20:38)
[2018-11-29] MEDS: ENOXAPARIN 30 MG/0.3 ML SYG SC SCH (08:19)
--- NOTE | 2018-11-29 08:57 | PN ---
DATE: 11/29/2018 SUBJECTIVE: The patient is stable, no events overnight. OBJECTIVE: VITAL SIGNS: Blood pressure is 101/62, pulse 103, respirations 20, temperature 98.0. HEENT: Head is normocephalic. NECK: Supple. HEART: Regular rate. LUNGS: Show diminished breath sounds at the base. ABDOMEN: Soft, nontender to palpation without rebound or guarding. EXTREMITIES: Negative for clubbing, cyanosis, no edema. DERMATOLOGIC: No rashes. MUSCULOSKELETAL: No joint effusion. NEUROLOGIC: No change in exam. MEDICATIONS: Reviewed. LABORATORY DATA: Reviewed. ASSESSMENT AND PLAN: 1. Right malleolar fracture. The patient is status post open reduction internal fixation. Currentl y stable. Continue physical therapy, continue pain control. 2. Onychomycosis. The patient is status post nail clipping. 3. Obstructive sleep apnea. Continue CPAP. 4. C. difficile. The patient is on oral vancomycin, completing course. 5. Urinary tract infection. The patient is completing antibiotic course. 6. Cough, improved. Continue Robitussin. 7. History of Crohn's disease. Continue medical management. 8. Bipolar disorder, schizophrenia. Continue current treatment plan. 9. ADHD, anxiety disorder, depression. Continue Ritalin. Continue antidepressant medication. 10. Hypomagnesemia. Continue to monitor and replete. 11. Acute kidney injury. Etiology is secondary to hemodynamics. Continue to monitor. Renal functi on is fluctuating, but overall improving. 12. Gastrointestinal and deep vein thrombosis prophylaxis. 13. History of Beltre syndrome. Dictated By: NICK CORBIN DO NR/NTS Conf#: [id number] DID#: [id number] CC: USHA CAIN MD; JONNIE LAIRD MD; ANILA NATH DO;*EndCC*
--- NOTE | 2018-11-29 11:35 | CONS ---
Assessment/Plan Assessment/Plan Hospital Course (Demo Recall) Remaind stable over night, no fevers Antimicrobials: Oral vancomycin, gentamicin Diflucan Physical examination fragile well-developed elderly white woman who is alert in no distress. Head atraumatic normocephalic sclera nonicteric vehicle mucosa dry neck is supple chest rise symmetrical breath sounds diminished bases heart: S1- S2. Abdomen soft bowel sounds present. Extremities: Right lower extremity in the cast Assessment: 1. Urinary tract infection 2. C. difficile colitis 3. Crohn's disease 4. Bipolar disorder and schizophrenia 5. Positive Rosetta albicans in sputum 6. Chronic bladder incontinence status post endometrial cancer with radiation Plan: Continue abx, complete Gentamicin today Consultation Date/Type/Reason Admit Date/Time Nov 20, 2018 at 19:13 Initial Consult Date Type of Consult id Date/Time of Note DATE: 11/29/18 TIME: 11:33 Exam/Review of Systems Exam Vitals Vital Signs Date Temp Pulse Resp B/P (MAP) Pulse Ox O2 O2 Flow FiO2 Time Delivery Rate 11/29/18 98.0 103 18 96/69 (78) 94 Nasal 3.0 02:00 Cannula Intake and Output 11/28/18 11/28/18 11/29/18 1515:00 23:00 07:00 IntakeIntake Total 1000 ml 240 ml OutputOutput Total 3 ml 1 ml BalanceBalance 997 ml 239 ml Results Result Diagram: 11/26/18 0652 11/28/18 0554 Medications Medication Current Medications Acetaminophen/ Hydrocodone Bitart ([facility] (10/325)) 1 tab Q4H PRN PO MODERATE PAIN LEVEL 4-6 Last administered on 11/29/18at 03:38; Admin Dose 1 TAB; Start 11/20/18 at 23:30 Cholecalciferol (Vitamin D) 1,000 unit DAILY PO Last administered on 11/29/18at 08:18; Admin Dose 1,000 UNIT; Start 11/21/18 at 09:00 Divalproex Sodium (Depakote Er) 500 mg DAILY PO Last administered on 11/29/18at 08:18; Admin Dose 500 MG; Start 11/21/18 at 09:00 Diazepam (Valium) 2 mg BID PO Last administered on 11/29/18at 08:17; Admin Dose 2 MG; Start 11/20/18 at 23:30 Divalproex Sodium (Depakote Er) 750 mg HS PO Last administered on 11/28/18 20:09; Admin Dose 750 MG; Start 11/20/18 at 23:30 Estradiol (Estrace) 2 mg HS PO Last administered on 11/28/18 20:17; Admin Dose 2 MG; Start 11/20/18 at 23:30 Mesalamine (Pentasa) 2,000 mg BID PO Last administered on 11/29/18 08:18; Admin Dose 2,000 MG; Start 11/20/18 at 23:30 Pantoprazole (Protonix Tab) 40 mg BID@0600,1800 PO Last administered on 11/29/18 06:10; Admin Dose 40 MG; Start 11/20/18 at 23:30 Perphenazine (Trilafon) 2 mg TID PRN PO AGITATION Last administered on 11/28/18 00:43; Admin Dose 2 MG; Start 11/20/18 at 23:30 Perphenazine (Trilafon) 4 mg BID PO Last administered on 11/29/18 08:18; Admin Dose 4 MG; Start 11/21/18 at 01:00 Ranitidine HCl (Zantac) 150 mg BID PO Last administered on 11/29/18 08:18; Admin Dose 150 MG; Start 11/20/18 at 23:30 Vancomycin HCl (Vancomycin Oral Syringe) 125 mg Q6 PO Last administered on 11/29/18 06:10; Admin Dose 125 MG; Start 11/21/18 at 00:00 Clozapine (Clozaril) 200 mg HS PO Last administered on 11/28/18 20:09; Admin Dose 200 MG; Start 11/21/18 at 21:00 Tranylcypromine Sulfate (Parnate) 60 mg DAILY@0700 PO Last administered on 11/29/18 06:10; Admin Dose 60 MG; Start 11/22/18 at 07:00 Magnesium Oxide (Mag-Ox 400) 400 mg DAILY PO Last administered on 11/29/18 08:18; Admin Dose 400 MG; Start 11/22/18 at 09:30 Enoxaparin Sodium (Lovenox) 30 mg DAILY SC Last administered on 11/29/18 08:19; Admin Dose 30 MG; Start 11/23/18 at 09:00 Methylphenidate HCl (Methylin) 20 mg TID@0700,1100,1500 PO Last administered on 11/29/18 06:10; Admin Dose 20 MG; Start 11/22/18 at 11:00 Gentamicin Sulfate 350 mg/ Dextrose 108.75 ml @ 108.75 mls/hr Q36H IVPB Last administered on 11/28/18 13:25; Admin Dose 108.75 MLS/HR; Start 11/24/18 at 02:00 Levalbuterol (Xopenex Neb) 0.31 mg Q4H RESP THERAPY PRN HHN sob Last administered on 11/28/18 21:18; Admin Dose 0.31 MG; Start 11/26/18 at 08:30 Fluconazole (Diflucan) 100 mg DAILY PO Last administered on 11/29/18 08:18; Admin Dose 100 MG; Start 11/27/18 at 11:30 Prednisolone Acetate (Pred Mild 0.12%) 1 drop DAILY BOTH EYES Last administered on 11/29/18 08:17; Admin Dose 1 DROP; Start 11/28/18 at 09:00 Guaifenesin/ Codeine Phosphate (Robitussin Ac Liquid Cup) 10 ml Q4H PRN PO cough Last administered on 11/29/18 03:38; Admin Dose 10 ML; Start 11/27/18 at 14:00 Ascorbic Acid (Vitamin C) 250 mg QHS PO Last administered on 11/28/18 20:09; Admin Dose 250 MG; Start 11/27/18 at 21:00 Patient Own Medication 1 ea HS BOTH EYES Last administered on 11/28/18 20:17; Admin Dose 1 EA; Start 11/28/18 at 21:00 IFRAH BOLANOS NP November 29, 2018 11:34
--- NOTE | 2018-11-29 13:19 | PN ---
Date/Time of Note Date/Time of Note DATE: 11/29/18 TIME: 13:18 Subjective No new complaints Objective Vital Signs Date Temp Pulse Resp B/P (MAP) Pulse Ox O2 O2 Flow FiO2 Time Delivery Rate 11/29/18 Nasal 3.0 08:00 Cannula 11/29/18 98.0 103 18 96/69 (78 94 02:00 Intake and Output 11/28/18 11/28/18 11/29/18 1515:00 23:00 07:00 IntakeIntake Total 1000 ml 240 ml OutputOutput Total 3 ml 1 ml BalanceBalance 997 ml 239 ml Exam pulm-cta min transfer Results/Medications Result Diagram: 11/26/18 0652 11/28/18 0554 Medications Current Medications Acetaminophen/ Hydrocodone Bitart ([place] ()) 1 tab Q4H PRN PO MODERATE PAIN LEVEL 4-6 Last administered on 11/29/18 03:38; Admin Dose 1 TAB; Start 11/20/18 at 23:30 Cholecalciferol (Vitamin D) 1,000 unit DAILY PO Last administered on 11/29/18 08:18; Admin Dose 1,000 UNIT; Start 11/21/18 at 09:00 Divalproex Sodium (Depakote Er) 500 mg DAILY PO Last administered on 11/29/18 08:18; Admin Dose 500 MG; Start 11/21/18 at 09:00 Diazepam (Valium) 2 mg BID PO Last administered on 11/29/18 08:17; Admin Dose 2 MG; Start 11/20/18 at 23:30 Divalproex Sodium (Depakote Er) 750 mg HS PO Last administered on 11/28/18 20:09; Admin Dose 750 MG; Start 11/20/18 at 23:30 Estradiol (Estrace) 2 mg HS PO Last administered on 11/28/18 20:17; Admin Dose 2 MG; Start 11/20/18 at 23:30 Mesalamine (Pentasa) 2,000 mg BID PO Last administered on 11/29/18 08:18; Admin Dose 2,000 MG; Start 11/20/18 at 23:30 Pantoprazole (Protonix Tab) 40 mg BID@0600,1800 PO Last administered on 11/29/18 06:10; Admin Dose 40 MG; Start 11/20/18 at 23:30 Perphenazine (Trilafon) 2 mg TID PRN PO AGITATION Last administered on 11/28/18 00:43; Admin Dose 2 MG; Start 11/20/18 at 23:30 Perphenazine (Trilafon) 4 mg BID PO Last administered on 11/29/18 08:18; Admin Dose 4 MG; Start 11/21/18 at 01:00 Ranitidine HCl (Zantac) 150 mg BID PO Last administered on 11/29/18 08:18; Admin Dose 150 MG; Start 11/20/18 at 23:30 Vancomycin HCl (Vancomycin Oral Syringe) 125 mg Q6 PO Last administered on 11/29/18 11:34; Admin Dose 125 MG; Start 11/21/18 at 00:00 Clozapine (Clozaril) 200 mg HS PO Last administered on 11/28/18 20:09; Admin Dose 200 MG; Start 11/21/18 at 21:00 Tranylcypromine Sulfate (Parnate) 60 mg DAILY@0700 PO Last administered on 11/29/18 06:10; Admin Dose 60 MG; Start 11/22/18 at 07:00 Magnesium Oxide (Mag-Ox 400) 400 mg DAILY PO Last administered on 11/29/18 08:18; Admin Dose 400 MG; Start 11/22/18 at 09:30 Enoxaparin Sodium (Lovenox) 30 mg DAILY SC Last administered on 11/29/18 08:19; Admin Dose 30 MG; Start 11/23/18 at 09:00 Methylphenidate HCl (Methylin) 20 mg TID@0700,1100,1500 PO Last administered on 11/29/18 11:34; Admin Dose 20 MG; Start 11/22/18 at 11:00 Gentamicin Sulfate 350 mg/ Dextrose 108.75 ml @ 108.75 mls/hr Q36H IVPB Last administered on 11/28/18 13:25; Admin Dose 108.75 MLS/HR; Start 11/24/18 at 02:00 Levalbuterol (Xopenex Neb) 0.31 mg Q4H RESP THERAPY PRN HHN sob Last administered on 11/28/18 21:18; Admin Dose 0.31 MG; Start 4/28/19 at 08:30 Fluconazole (Diflucan) 100 mg DAILY PO Last administered on 11/29/18 08:18; Admin Dose 100 MG; Start 11/27/18 at 11:30 Prednisolone Acetate (Pred Mild 0.12%) 1 drop DAILY BOTH EYES Last administered on 11/29/18 08:17; Admin Dose 1 DROP; Start 11/28/18 at 09:00 Guaifenesin/ Codeine Phosphate (Robitussin Ac Liquid Cup) 10 ml Q4H PRN PO cough Last administered on 11/29/18 03:38; Admin Dose 10 ML; Start 11/27/18 at 14:00 Ascorbic Acid (Vitamin C) 250 mg QHS PO Last administered on 11/28/18 20:09; Admin Dose 250 MG; Start 11/27/18 at 21:00 Patient Own Medication 1 ea HS BOTH EYES Last administered on 11/28/18 20:17; Admin Dose 1 EA; Start 11/28/18 at 21:00 Assessment/Plan Additional Assessment/Plan Rehab- Pulmonary debility secondary to acute respiratory failure, pneumonia and sepsis; bimalleolar right ankle fracture status post ORIF Continue rehab, great progress Acute kidney injury. C. difficile- continue Vanco. Improving History of bipolar disorder. Crohn disease. Fibromyalgia. Hypothyroidism. Legally blind. History of uterine cancer. Gastritis. JONNIE LAIRD MD November 29, 2018 13:19
[2018-11-29 14:00] VITALS: BP 107/65; PULSE 107; RESP 22
[2018-11-29 20:00] VITALS: BP 103/66; PULSE 101; RESP 18
[2018-11-29] MEDS: ESTRADIOL 1 MG TAB PO SCH (20:39)
[2018-11-29] MEDS: ASCORBIC ACID 250 MG TAB PO SCH (20:40)
[2018-11-29] MEDS: CLOZAPINE 100 MG TABLET PO SCH (20:40)
[2018-11-29] MEDS: LUMIGAN 0.01% EYE DROPS BOTH EYES SCH (20:42)
[2018-11-30] MEDS: VANCOMYCIN HCL 250 MG/5ML POSYG PO SCH ×4 (00:09→17:32)
[2018-11-30 02:00] VITALS: BP 109/69; RESP 18
[2018-11-30] MEDS: GENTAMICIN 350 MG in DEXTROSE 5% 100 ML IVPB SCH (02:19)
[2018-11-30] MEDS: PANTOPRAZOLE (EC) 40 MG TAB PO SCH ×2 (07:17→17:34)
[2018-11-30] MEDS: TRANYLCYPROMINE 10 MG PO SCH (07:18)
[2018-11-30] MEDS: METHYLPHENIDATE 20 MG TAB PO SCH ×3 (07:18→14:43)
[2018-11-30 07:30] VITALS: BP 125/67; PULSE 102; RESP 20
[2018-11-30] MEDS: PREDNISOLONE ACET 0.12% 5 ML OPH BOTH EYES SCH (08:40)
[2018-11-30] MEDS: DIAZEPAM 2 MG TAB PO SCH ×2 (08:42→20:40)
[2018-11-30] MEDS: DIVALPROEX (ER) 250 MG TAB PO SCH ×2 (08:42→20:39)
[2018-11-30] MEDS: RANITIDINE 150 MG TAB PO SCH ×2 (08:42→20:40)
[2018-11-30] MEDS: MESALAMINE (SR) 250 MG CAP PO SCH ×2 (08:42→20:57)
[2018-11-30] MEDS: PERPHENAZINE 4 MG TAB PO SCH ×2 (08:42→20:39)
[2018-11-30] MEDS: CHOLECALCIFEROL 1,000 UNIT TAB PO SCH (08:43)
[2018-11-30] MEDS: MAGNESIUM OXIDE 400 MG TAB PO SCH (08:43)
[2018-11-30] MEDS: FLUCONAZOLE 100 MG TAB PO SCH (08:43)
[2018-11-30] MEDS: ENOXAPARIN 30 MG/0.3 ML SYG SC SCH (08:52)
--- NOTE | 2018-11-30 10:18 | PN ---
DATE: 11/30/2018 SUBJECTIVE: The patient is stable. No events overnight. No fevers, chills, nausea, or vomiting. OBJECTIVE: VITAL SIGNS: Blood pressure is 125/67, pulse 102, respirations 20, temperature 97.8. HEENT: Head is normocephalic. NECK: Supple. HEART: Regular rate. LUNGS: Show diminished breath sounds at the base. ABDOMEN: Soft, nontender to palpation without rebound or guarding. EXTREMITIES: Negative for clubbing, cyanosis, no edema. DERMATOLOGIC: No rashes. MUSCULOSKELETAL: No joint effusion. NEUROLOGIC: No change in exam. MEDICATIONS: Reviewed. LABORATORY DATA: Reviewed. ASSESSMENT AND PLAN: 1. Right malleolar fracture. The patient is status post open reduction internal fixation, currently stable. Continue physical therapy, pain control. 2. Obstructive sleep apnea. Continue CPAP. 3. Clostridium difficile. The patient is completing antibiotic course. 4. Urinary tract infection. The patient is completing antibiotic course. 5. Cough, improved. Continue Robitussin. 6. History of Crohn's disease. Continue medical management. 7. Psychiatric disorder including bipolar disorder, schizophrenia, ADHD, anxiety disorder, depressio n. Continue current medical management and antidepressant therapy and Ritalin. 8. Hypomagnesemia. Continue to monitor and replete. 9. Acute kidney injury, etiology is secondary to hemodynamics. Renal function is fluctuating, but o verall improving. Continue to monitor. 10. Gastrointestinal and deep vein thrombosis prophylaxis. Dictated By: NICK CORBIN DO NR/NTS Conf#: [id number] DID#: [id number] CC: USHA CAIN MD; JONNIE LAIRD MD; ANILA NATH DO;*EndCC*
--- NOTE | 2018-11-30 11:36 | PN ---
Date/Time of Note Date/Time of Note DATE: 11/30/18 TIME: 11:35 Subjective Reports less stool Objective Vital Signs Date Temp Pulse Resp B/P (MAP) Pulse Ox O2 O2 Flow FiO2 Time Delivery Rate 11/30/18 Nasal 2.0 08:00 Cannula 11/30/18 97.8 102 20 125/67 97 07:30 (86) Intake and Output 11/29/18 11/29/18 11/30/18 1515:00 23:00 07:00 IntakeIntake Total 400 ml 108.75 ml BalanceBalance 400 ml 108.75 ml Exam pulm-cta bd-soft min assist Results/Medications Result Diagram: 11/26/18 0652 11/28/18 0554 Medications Current Medications Acetaminophen/ Hydrocodone Bitart ([place] ()) 1 tab Q4H PRN PO MODERATE PAIN LEVEL 4-6 Last administered on 11/29/18 20:41; Admin Dose 1 TAB; Start 11/20/18 at 23:30 Cholecalciferol (Vitamin D) 1,000 unit DAILY PO Last administered on 11/30/18 08:43; Admin Dose 1,000 UNIT; Start 11/21/18 at 09:00 Divalproex Sodium (Depakote Er) 500 mg DAILY PO Last administered on 11/30/18 08:42; Admin Dose 500 MG; Start 11/21/18 at 09:00 Diazepam (Valium) 2 mg BID PO Last administered on 11/30/18 08:42; Admin Dose 2 MG; Start 11/20/18 at 23:30 Divalproex Sodium (Depakote Er) 750 mg HS PO Last administered on 11/29/18 20:39; Admin Dose 750 MG; Start 11/20/18 at 23:30 Estradiol (Estrace) 2 mg HS PO Last administered on 11/29/18 20:39; Admin Dose 2 MG; Start 11/20/18 at 23:30 Mesalamine (Pentasa) 2,000 mg BID PO Last administered on 11/30/18 08:42; Admin Dose 2,000 MG; Start 11/20/18 at 23:30 Pantoprazole (Protonix Tab) 40 mg BID@0600,1800 PO Last administered on 11/30/18 07:17; Admin Dose 40 MG; Start 11/20/18 at 23:30 Perphenazine (Trilafon) 2 mg TID PRN PO AGITATION Last administered on 11/28/18 00:43; Admin Dose 2 MG; Start 11/20/18 at 23:30 Perphenazine (Trilafon) 4 mg BID PO Last administered on 11/30/18 08:42; Admin Dose 4 MG; Start 11/21/18 at 01:00 Ranitidine HCl (Zantac) 150 mg BID PO Last administered on 11/30/18 08:42; Adm in Dose 150 MG; Start 11/20/18 at 23:30 Vancomycin HCl (Vancomycin Oral Syringe) 125 mg Q6 PO Last administered on 11/30/18 11:21; Admin Dose 125 MG; Start 11/21/18 at 00:00 Clozapine (Clozaril) 200 mg HS PO Last administered on 11/29/18 20:40; Admin Dose 200 MG; Start 11/21/18 at 21:00 Tranylcypromine Sulfate (Parnate) 60 mg DAILY@0700 PO Last administered on 11/30/18 07:18; Admin Dose 60 MG; Start 11/22/18 at 07:00 Magnesium Oxide (Mag-Ox 400) 400 mg DAILY PO Last administered on 11/30/18 08:43; Admin Dose 400 MG; Start 11/22/18 at 09:30 Enoxaparin Sodium (Lovenox) 30 mg DAILY SC Last administered on 11/30/18 08:52; Admin Dose 30 MG; Start 11/23/18 at 09:00 Methylphenidate HCl (Methylin) 20 mg TID@0700,1100,1500 PO Last administered on 11/30/18 11:21; Admin Dose 20 MG; Start 11/22/18 at 11:00 Levalbuterol (Xopenex Neb) 0.31 mg Q4H RESP THERAPY PRN HHN sob Last administered on 11/28/18 21:18; Admin Dose 0.31 MG; Start 11/26/18 at 08:30 Fluconazole (Diflucan) 100 mg DAILY PO Last administered on 11/30/18 08:43; Admin Dose 100 MG; Start 11/27/18 at 11:30 Prednisolone Acetate (Pred Mild 0.12%) 1 drop DAILY BOTH EYES Last administered on 11/30/18 08:40; Admin Dose 1 DROP; Start 11/28/18 at 09:00 Guaifenesin/ Codeine Phosphate (Robitussin Ac Liquid Cup) 10 ml Q4H PRN PO co ugh Last administered on 11/29/18 17:58; Admin Dose 10 ML; Start 11/27/18 at 14:00 Ascorbic Acid (Vitamin C) 250 mg QHS PO Last administered on 11/29/18 20:40; Admin Dose 250 MG; Start 11/27/18 at 21:00 Patient Own Medication 1 ea HS BOTH EYES Last administered on 11/29/18 20:42; Admin Dose 1 EA; Start 11/28/18 at 21:00 Assessment/Plan Additional Assessment/Plan Rehab- Pulmonary debility secondary to acute respiratory failure, pneumonia and sepsis; bimalleolar right ankle fracture status post ORIF Continue rehab therapies with improved activity tolerance at WC level Acute kidney injury. C. difficile- continue Vanco. Improving History of bipolar disorder- patient with change in affect today. Will have steel grinder follow Crohn disease. Fibromyalgia. Hypothyroidism. Legally blind. History of uterine cancer. Gastritis. JONNIE LAIRD MD November 30, 2018 11:36
[2018-11-30] MEDS: HYDROCODONE/APAP (10/325) TAB PO PRN ×2 (13:30→20:41)
--- NOTE | 2018-11-30 14:00 | CONS ---
Assessment/Plan Assessment/Plan Hospital Course (Demo Recall) Alert, feels good, no diarrhea today, no fevers Antimicrobials: Oral vancomycin Diflucan Physical examination fragile well-developed elderly white woman who is alert in no distress. Head atraumatic normocephalic sclera nonicteric vehicle mucosa dry neck is supple chest rise symmetrical breath sounds diminished bases heart: S1- S2. Abdomen soft bowel sounds present. Extremities: Right lower extremity in the cast Assessment: 1. Urinary tract infection 2. C. difficile colitis 3. Crohn's disease 4. Bipolar disorder and schizophrenia 5. Positive [place] albicans in sputum==> on Diflucan 6. Chronic bladder incontinence status post endometrial cancer with radiation Plan: Remains stable, continue abx for C dif Consultation Date/Type/Reason Admit Date/Time Nov 20, 2018 at 19:13 Initial Consult Date Type of Consult id Date/Time of Note DATE: 11/30/18 TIME: 13:59 Exam/Review of Systems Exam Vitals Vital Signs Date Temp Pulse Resp B/P (MAP) Pulse Ox O2 O2 Flow FiO2 Time Delivery Rate 11/30/18 Nasal 2.0 08:00 Cannula 11/30/18 97.8 102 20 125/67 97 07:30 (86) Intake and Output 11/29/18 11/29/18 11/30/18 1515:00 23:00 07:00 IntakeIntake Total 400 ml 108.75 ml BalanceBalance 400 ml 108.75 ml Results Result Diagram: 11/26/18 0652 11/28/18 0554 Medications Medication Current Medications Acetaminophen/ Hydrocodone Bitart ([place] (10/325)) 1 tab Q4H PRN PO MODERATE PAIN LEVEL 4-6 Last administered on 11/30/18at 13:30; Admin Dose 1 TAB; Start 11/20/18 at 23:30 Cholecalciferol (Vitamin D) 1,000 unit DAILY PO Last administered on 11/30/18 08:43; Admin Dose 1,000 UNIT; Start 11/21/18 at 09:00 Divalproex Sodium (Depakote Er) 500 mg DAILY PO Last administered on 11/30/18 08:42; Admin Dose 500 MG; Start 11/21/18 at 09:00 Diazepam (Valium) 2 mg BID PO Last administered on 11/30/18at 08:42; Admin Dose 2 MG; Start 11/20/18 at 23:30 Divalproex Sodium (Depakote Er) 750 mg HS PO Last administered on 11/29/18 20:39; Admin Dose 750 MG; Start 11/20/18 at 23:30 Estradiol (Estrace) 2 mg HS PO Last administered on 11/29/18 20:39; Admin Dose 2 MG; Start 11/20/18 at 23:30 Mesalamine (Pentasa) 2,000 mg BID PO Last administered on 11/30/18 08:42; Admin Dose 2,000 MG; Start 11/20/18 at 23:30 Pantoprazole (Protonix Tab) 40 mg BID@0600,1800 PO Last administered on 11/30/18 07:17; Admin Dose 40 MG; Start 11/20/18 at 23:30 Perphenazine (Trilafon) 2 mg TID PRN PO AGITATION Last administered on 11/28/18 00:43; Admin Dose 2 MG; Start 11/20/18 at 23:30 Perphenazine (Trilafon) 4 mg BID PO Last administered on 11/30/18 08:42; Admin Dose 4 MG; Start 11/21/18 at 01:00 Ranitidine HCl (Zantac) 150 mg BID PO Last administered on 11/30/18 08:42; Admin Dose 150 MG; Start 11/20/18 at 23:30 Vancomycin HCl (Vancomycin Oral Syringe) 125 mg Q6 PO Last administered on 11/30/18 11:21; Admin Dose 125 MG; Start 11/21/18 at 00:00 Clozapine (Clozaril) 200 mg HS PO Last administered on 11/29/18 20:40; Admin Dose 200 MG; Start 11/21/18 at 21:00 Tranylcypromine Sulfate (Parnate) 60 mg DAILY@0700 PO Last administered on 11/30/18 07:18; Admin Dose 60 MG; Start 11/22/18 at 07:00 Magnesium Oxide (Mag-Ox 400) 400 mg DAILY PO Last administered on 11/30/18 08:43; Admin Dose 400 MG; Start 11/22/18 at 09:30 Enoxaparin Sodium (Lovenox) 30 mg DAILY SC Last administered on 11/30/18 08:52; Admin Dose 30 MG; Start 11/23/18 at 09:00 Methylphenidate HCl (Methylin) 20 mg TID@0700,1100,1500 PO Last administered on 11/30/18 11:21; Admin Dose 20 MG; Start 11/22/18 at 11:00 Levalbuterol (Xopenex Neb) 0.31 mg Q4H RESP THERAPY PRN HHN sob Last administered on 11/28/18 21:18; Admin Dose 0.31 MG; Start 11/26/18 at 08:30 Fluconazole (Diflucan) 100 mg DAILY PO Last administered on 11/30/18 08:43; Admin Dose 100 MG; Start 11/27/18 at 11:30 Prednisolone Acetate (Pred Mild 0.12%) 1 drop DAILY BOTH EYES Last administered on 11/30/18 08:40; Admin Dose 1 DROP; Start 11/28/18 at 09:00 Guaifenesin/ Codeine Phosphate (Robitussin Ac Liquid Cup) 10 ml Q4H PRN PO cough Last administered on 11/29/18 17:58; Admin Dose 10 ML; Start 11/27/18 at 14:00 Ascorbic Acid (Vitamin C) 250 mg QHS PO Last administered on 11/29/18 20:40; A dmin Dose 250 MG; Start 11/27/18 at 21:00 Patient Own Medication 1 ea HS BOTH EYES Last administered on 11/29/18 20:42; Admin Dose 1 EA; Start 11/28/18 at 21:00 IFRAH BOLANOS NP November 30, 2018 14:00
[2018-11-30 14:30] VITALS: BP 102/69; RESP 20
[2018-11-30] MEDS: GUAIFENESIN/CODEINE 5ML CUP PO PRN ×2 (17:32→22:17)
[2018-11-30 20:00] VITALS: BP 109/68; PULSE 106; RESP 18
[2018-11-30] MEDS: ESTRADIOL 1 MG TAB PO SCH (20:39)
[2018-11-30] MEDS: LUMIGAN 0.01% EYE DROPS BOTH EYES SCH (20:40)
[2018-11-30] MEDS: CLOZAPINE 100 MG TABLET PO SCH (20:40)
[2018-11-30] MEDS: ASCORBIC ACID 250 MG TAB PO SCH (20:40)
[2018-12-01] MEDS: VANCOMYCIN HCL 250 MG/5ML POSYG PO SCH ×4 (00:14→17:42)
[2018-12-01] MEDS: PERPHENAZINE 4 MG TAB PO PRN (00:18)
[2018-12-01 00:23] VITALS: BP 100/54; PULSE 101; RESP 18
[2018-12-01] MEDS: HYDROCODONE/APAP (10/325) TAB PO PRN ×3 (00:27→20:46)
[2018-12-01] MEDS: PANTOPRAZOLE (EC) 40 MG TAB PO SCH ×2 (06:44→17:42)
[2018-12-01] MEDS: METHYLPHENIDATE 20 MG TAB PO SCH ×3 (06:48→15:15)
[2018-12-01] MEDS: TRANYLCYPROMINE 10 MG PO SCH (06:48)
[2018-12-01 07:30] VITALS: BP 98/60; PULSE 105; RESP 20
--- NOTE | 2018-12-01 08:27 | PSY ---
Date/Time of Note Date/Time of Note DATE: 12/01/18 TIME: 08:14 Psychiatric Subjective Eval Consent Pt consented to telemedicine: No Subjective Evaluation Patient location: inpatient History of present illness Patient is a 63-year-old female with a past medical history of hypothyroidism, Crohn disease, Beltre syndrome, and obstructive sleep apnea, who is currently admitted for shortness of breath and cough. Bbtx-rp-[id number] evaluation, patient states she has a long history of mental mental illness but has been stable she denies suicidal ideation denies feeling of hopelessness and helplessness and contracted for safety. Past psychiatric history Long history of mental illness Hospitalization: other Allergies: Coded Allergies: epinephrine (Verified Allergy, Unknown, 11/20/18) meperidine (Verified Allergy, Unknown, 11/20/18) Substance Abuse Substance use: other Substance abuse history: No Prior substance abuse treatmen: No Social History Marital status: other DPA/Conservatorship: No Psychiatric Objective Eval Review of Systems: Review of Systems: Not Applicable Physical Examination: Physical Examination: Not Applicable Mental Status Examination: Appearance: Groomed Eye Contact: Good Psychomotor Activity: Slow Behavior: Cooperative Speech: Clear, Soft AFFECT: Flat Mood: Depressed, Anxious Though Process: Linear Orientation: x4 Cognition: Alert Insight: Intact Judgement: Intact Assessment and Plan Assessment/Diagnosis Diagnosis Bipolar disorder depressed Recommendation/Plan Medication Management Continue current medications, will verify the use of methylphenidate's from patient's primary doctor before it to be okayed Multiple antipsychotics: No Psychotherapy Provide supportive therapy Discharge Disposition: Other Legal Status: Voluntary (Does not meet criteria for 5150 hold) ALICE CID NP December 01, 2018 08:25
[2018-12-01] MEDS: PREDNISOLONE ACET 0.12% 5 ML OPH BOTH EYES SCH (08:58)
[2018-12-01] MEDS: FLUCONAZOLE 100 MG TAB PO SCH (08:59)
[2018-12-01] MEDS: DIVALPROEX (ER) 250 MG TAB PO SCH ×2 (08:59→20:44)
[2018-12-01] MEDS: RANITIDINE 150 MG TAB PO SCH ×2 (09:00→20:45)
[2018-12-01] MEDS: MAGNESIUM OXIDE 400 MG TAB PO SCH (09:00)
[2018-12-01] MEDS: DIAZEPAM 2 MG TAB PO SCH ×2 (09:00→20:45)
[2018-12-01] MEDS: PERPHENAZINE 4 MG TAB PO SCH ×2 (09:00→20:45)
[2018-12-01] MEDS: CHOLECALCIFEROL 1,000 UNIT TAB PO SCH (09:00)
[2018-12-01] MEDS: ENOXAPARIN 30 MG/0.3 ML SYG SC SCH (09:06)
--- NOTE | 2018-12-01 09:14 | PN ---
DATE: 12/01/2018 SUBJECTIVE: The patient is stable. No events overnight. The patient was asking for adjustment of h er psychotropic medications. The patient is pending psychiatric evaluation. No other events noted. OBJECTIVE: VITAL SIGNS: Blood pressure is 100/54, respirations 18, pulse 101, temperature 98.3. HEENT: Head is normocephalic. NECK: Supple. HEART: Regular rate. LUNGS: Show diminished breath sounds at the base. ABDOMEN: Soft, nontender to palpation without rebound or guarding. EXTREMITIES: Negative for clubbing, cyanosis, no edema. Noted cast on the patient's right foot. DERMATOLOGIC: No rashes. MUSCULOSKELETAL: No joint effusion. NEUROLOGIC: No change in exam. MEDICATIONS: Reviewed. LABORATORY DATA: Reviewed. ASSESSMENT AND PLAN: 1. Right malleolar fracture. The patient is status post open reduction internal fixation, currently stable. Continue physical therapy, continue pain control. 2. Obstructive sleep apnea. Continue CPAP. 3. Clostridium difficile. Continue oral vancomycin. 4. Urinary tract infection. The patient is completing antibiotic course. 5. History of Crohn's disease. Continue medical management. 6. Psychiatric disorder including bipolar disorder, schizophrenia, ADHD, anxiety disorder, depressio n. Continue current medical management. Follow up with psychiatry. 7. Hypomagnesemia. Continue to monitor and replete. 8. Acute kidney injury. Etiology is secondary to hemodynamics. Renal function is fluctuating. Con tinue to monitor. 9. Gastrointestinal and deep vein thrombosis prophylaxis. Dictated By: NICK CORBIN DO NR/NTS Conf#: [id number] DID#: [id number] CC: ANILA NATH DO; PALAK JENKINS NP; JONNIE LAIRD MD;*EndCC*
--- NOTE | 2018-12-01 10:35 | PN ---
Date/Time of Note Date/Time of Note DATE: 12/01/18 TIME: 10:35 Subjective No new complaints Objective Vital Signs Date Temp Pulse Resp B/P (MAP) Pulse Ox O2 O2 Flow FiO2 Time Delivery Rate 12/01/18 98.6 105 20 98/60 (73) 97 Nasal 3.0 07:30 Cannula Intake and Output 11/30/18 11/30/18 12/01/18 1515:00 23:00 07:00 IntakeIntake Total 500 ml 200 ml BalanceBalance 500 ml 200 ml Exam min transfer pulm-cta Results/Medications Result Diagram: 11/28/18 0554 Medications Current Medications Acetaminophen/ Hydrocodone Bitart ([place] ()) 1 tab Q4H PRN PO MODERATE PAIN LEVEL 4-6 Last administered on 12/01/18 08:59; Admin Dose 1 TAB; Start 11/20/18 at 23:30 Cholecalciferol (Vitamin D) 1,000 unit DAILY PO Last administered on 12/01/18 09:00; Admin Dose 1,000 UNIT; Start 11/21/18 at 09:00 Divalproex Sodium (Depakote Er) 500 mg DAILY PO Last administered on 12/01/18 08:59; Admin Dose 500 MG; Start 11/21/18 at 09:00 Diazepam (Valium) 2 mg BID PO Last administered on 12/01/18 09:00; Admin Dose 2 MG; Start 11/20/18 at 23:30 Divalproex Sodium (Depakote Er) 750 mg HS PO Last administered on 11/30/18 20:39; Admin Dose 750 MG; Start 11/20/18 at 23:30 Estradiol (Estrace) 2 mg HS PO Last administered on 11/30/18 20:39; Admin Dose 2 MG; Start 11/20/18 at 23:30 Mesalamine (Pentasa) 2,000 mg BID PO Last administered on 11/30/18 20:57; Admin Dose 2,000 MG; Start 11/20/18 at 23:30 Pantoprazole (Protonix Tab) 40 mg BID@0600,1800 PO Last administered on 12/01/18 06:44; Admin Dose 40 MG; Start 11/20/18 at 23:30 Perphenazine (Trilafon) 2 mg TID PRN PO AGITATION Last administered on 12/01/18 00:18; Admin Dose 2 MG; Start 11/20/18 at 23:30 Perphenazine (Trilafon) 4 mg BID PO Last administered on 12/01/18 09:00; Admin Dose 4 MG; Start 11/21/18 at 01:00 Ranitidine HCl (Zantac) 150 mg BID PO Last administered on 12/01/18 09:00; Admin Dose 150 MG; Start 11/20/18 at 23:30 Vancomycin HCl (Vancomycin Oral Syringe) 125 mg Q6 PO Last administered on 12/01/18 06:44; Admin Dose 125 MG; Start 11/21/18 at 00:00 Clozapine (Clozaril) 200 mg HS PO Last administered on 11/30/18 20:40; Admin Dose 200 MG; Start 11/21/18 at 21:00 Tranylcypromine Sulfate (Parnate) 60 mg DAILY@0700 PO Last administered on 12/01/18 06:48; Admin Dose 60 MG; Start 11/22/18 at 07:00 Magnesium Oxide (Mag-Ox 400) 400 mg DAILY PO Last administered on 12/01/18 09:00; Admin Dose 400 MG; Start 11/22/18 at 09:30 Enoxaparin Sodium (Lovenox) 30 mg DAILY SC Last administered on 12/01/18 09:06; Admin Dose 30 MG; Start 11/23/18 at 09:00 Methylphenidate HCl (Methylin) 20 mg TID@0700,1100,1500 PO Last administered on 12/01/18 06:48; Admin Dose 20 MG; Start 11/22/18 at 11:00 Levalbuterol (Xopenex Neb) 0.31 mg Q4H RESP THERAPY PRN HHN sob Last administered on 11/28/18 21:18; Admin Dose 0.31 MG; Start 11/26/18 at 08:30 Fluconazole (Diflucan) 100 mg DAILY PO Last administered on 12/01/18 08:59; Admin Dose 100 MG; Start 11/27/18 at 11:30 Prednisolone Acetate (Pred Mild 0.12%) 1 drop DAILY BOTH EYES Last administered on 12/01/18 08:58; Admin Dose 1 DROP; Start 11/28/18 at 09:00 Guaifenesin/ Codeine Phosphate (Robitussin Ac Liquid Cup) 10 ml Q4H PRN PO cough Last administered on 11/30/18 22:17; Admin Dose 10 ML; Start 11/27/18 at 14:00 Ascorbic Acid (Vitamin C) 250 mg QHS PO Last administered on 11/30/18 20:40; Admin Dose 250 MG; Start 11/27/18 at 21:00 Patient Own Medication 1 ea HS BOTH EYES Last administered on 11/30/18 20:40; Admin Dose 1 EA; Start 11/28/18 at 21:00 Assessment/Plan Additional Assessment/Plan Rehab- Pulmonary debility secondary to acute respiratory failure, pneumonia and sepsis; bimalleolar right ankle fracture status post ORIF Continue rehab at wheelchair level, limited ambulation Acute kidney injury. C. difficile- continue Vanco. Improving History of bipolar disorder- patient with change in affect today. 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 Fibromyalgia. Hypothyroidism. Legally blind. History of uterine cancer. Gastritis. JONNIE LAIRD MD December 01, 2018 10:35
[2018-12-01] MEDS: MESALAMINE (SR) 250 MG CAP PO SCH ×2 (11:52→20:44)
[2018-12-01] MEDS: LEVALBUTEROL (NEB) 0.31 MG/3 ML AMP HHN PRN ×2 (13:24→20:34)
[2018-12-01 14:00] VITALS: BP 93/64; PULSE 103; RESP 20
[2018-12-01 19:54] VITALS: BP 107/65; PULSE 110; RESP 18
[2018-12-01] MEDS: CLOZAPINE 100 MG TABLET PO SCH (20:45)
[2018-12-01] MEDS: ESTRADIOL 1 MG TAB PO SCH (20:45)
[2018-12-01] MEDS: LUMIGAN 0.01% EYE DROPS BOTH EYES SCH (20:45)
[2018-12-01] MEDS: ASCORBIC ACID 250 MG TAB PO SCH (20:45)
[2018-12-01] MEDS: GUAIFENESIN/CODEINE 5ML CUP PO PRN (20:46)
[2018-12-02 02:41] VITALS: BP 103/76; PULSE 96; RESP 18
[2018-12-02] MEDS: VANCOMYCIN HCL 250 MG/5ML POSYG PO SCH ×4 (02:58→18:00)
[2018-12-02] MEDS: METHYLPHENIDATE 20 MG TAB PO SCH ×3 (06:49→16:57)
[2018-12-02] MEDS: PANTOPRAZOLE (EC) 40 MG TAB PO SCH ×2 (06:49→18:30)
[2018-12-02] MEDS: TRANYLCYPROMINE 10 MG PO SCH (06:49)
[2018-12-02] MEDS: HYDROCODONE/APAP (10/325) TAB PO PRN ×3 (06:51→20:54)
[2018-12-02 08:00] VITALS: BP 114/65; PULSE 78; RESP 18
[2018-12-02] MEDS: FLUCONAZOLE 100 MG TAB PO SCH (09:27)
[2018-12-02] MEDS: MAGNESIUM OXIDE 400 MG TAB PO SCH (09:27)
[2018-12-02] MEDS: CHOLECALCIFEROL 1,000 UNIT TAB PO SCH (09:28)
[2018-12-02] MEDS: PERPHENAZINE 4 MG TAB PO SCH ×2 (09:28→20:45)
[2018-12-02] MEDS: DIAZEPAM 2 MG TAB PO SCH ×2 (09:28→20:35)
[2018-12-02] MEDS: DIVALPROEX (ER) 250 MG TAB PO SCH ×2 (09:29→20:35)
[2018-12-02] MEDS: RANITIDINE 150 MG TAB PO SCH ×2 (09:29→20:35)
[2018-12-02] MEDS: MESALAMINE (SR) 250 MG CAP PO SCH ×2 (09:29→20:35)
[2018-12-02] MEDS: ENOXAPARIN 30 MG/0.3 ML SYG SC SCH (09:32)
[2018-12-02] MEDS: PREDNISOLONE ACET 0.12% 5 ML OPH BOTH EYES SCH (09:40)
--- NOTE | 2018-12-02 11:37 | PN ---
Date/Time of Note Date/Time of Note DATE: 12/02/18 TIME: 11:37 Subjective Patient would like to adjust psych meds Objective Vital Signs Date Temp Pulse Resp B/P (MAP) Pulse Ox O2 O2 Flow FiO2 Time Delivery Rate 12/02/18 Nasal 2.0 08:00 Cannula 12/02/18 98.5 78 18 114/65 99 08:00 (81) Intake and Output 12/01/18 12/01/18 12/02/18 1414:59 22:59 06:59 IntakeIntake Total 980 ml OutputOutput Total 200 ml BalanceBalance -200 ml 980 ml Exam pulm-cta abd-soft min transfer Results/Medications Result Diagram: 12/02/18 0640 12/02/18 0640 Results 24 hrs Laboratory Tests Test 12/02/18 06:40 White Blood Count 7.7 # Red Blood Count 3.66 L Hemoglobin 9.8 L Hematocrit 34.4 L Mean Corpuscular Volume 94.0 Mean Corpuscular Hemoglobin 26.8 L Mean Corpuscular Hemoglobin Concent 28.5 L Red Cell Distribution Width 14.9 H Platelet Count 209 # Mean Platelet Volume 10.7 H Immature Granulocytes % 6.900 H Neutrophils % Segmented Neutrophils % (Manual) 54 Lymphocytes % Lymphocytes % (Manual) 27 Monocytes % Monocytes % (Manual) 7 Eosinophils % Eosinophils % (Manual) 6 Basophils % Basophils % (Manual) 2 Myelocytes % (Manual) 4 H Nucleated Red Blood Cells % 0.0 Immature Granulocytes # 0.530 H Neutrophils # Lymphocytes (Manual) 2.0 Lymphocytes # Monocytes # Monocytes # (Manual) 0.5 Eosinophils # Basophils # Basophils # (Manual) 0.1 H Myelocytes # 0.3 H Nucleated Red Blood Cells # Platelet Estimate NORMAL Polychromasia 1+ Hypochromasia 1+ Anisocytosis 1+ Microcytosis 1+ Sodium Level 144 Potassium Level 4.4 Chloride Level 101 Carbon Dioxide Level 35 H Anion Gap 8 Blood Urea Nitrogen 14 Creatinine 1.08 H Est Glomerular Filtrat Rate mL/min 51 L Glucose Level 93 Calcium Level 9.5 Phosphorus Level 4.4 Magnesium Level 1.8 Medications Current Medications Acetaminophen/ Hydrocodone Bitart ([place] (10/325)) 1 tab Q4H PRN PO MODERATE PAIN LEVEL 4-6 Last administered on 12/02/18at 06:51; Admin Dose 1 TAB; Start 11/20/18 at 23:30 Cholecalciferol (Vitamin D) 1,000 unit DAILY PO Last administered on 12/02/18 09:28; Admin Dose 1,000 UNIT; Start 11/21/18 at 09:00 Divalproex Sodium (Depakote Er) 500 mg DAILY PO Last administered on 12/02/18 09:29; Admin Dose 500 MG; Start 11/21/18 at 09:00 Diazepam (Valium) 2 mg BID PO Last administered on 12/02/18 09:28; Admin Dose 2 MG; Start 11/20/18 at 23:30 Divalproex Sodium (Depakote Er) 750 mg HS PO Last administered on 12/01/18 20:44; Admin Dose 750 MG; Start 11/20/18 at 23:30 Estradiol (Estrace) 2 mg HS PO Last administered on 12/01/18 20:45; Admin Dose 2 MG; Start 11/20/18 at 23:30 Mesalamine (Pentasa) 2,000 mg BID PO Last administered on 12/02/18 09:29; Admin Dose 2,000 MG; Start 11/20/18 at 23:30 Pantoprazole (Protonix Tab) 40 mg BID@0600,1800 PO Last administered on 12/02/18 06:49; Admin Dose 40 MG; Start 11/20/18 at 23:30 Perphenazine (Trilafon) 2 mg TID PRN PO AGITATION Last administered on 12/01/18 00:18; Admin Dose 2 MG; Start 11/20/18 at 23:30 Perphenazine (Trilafon) 4 mg BID PO Last administered on 12/02/18 09:28; Admin Dose 4 MG; Start 11/21/18 at 01:00 Ranitidine HCl (Zantac) 150 mg BID PO Last administered on 12/02/18 09:29; Admin Dose 150 MG; Start 11/20/18 at 23:30 Vancomycin HCl (Vancomycin Oral Syringe) 125 mg Q6 PO Last administered on 12/02/18 09:36; Admin Dose 125 MG; Start 11/21/18 at 00:00 Clozapine (Clozaril) 200 mg HS PO Last administered on 12/01/18 20:45; Admin Dose 200 MG; Start 11/21/18 at 21:00 Tranylcypromine Sulfate (Parnate) 60 mg DAILY@0700 PO Last administered on 12/02/18 06:49; Admin Dose 60 MG; Start 11/22/18 at 07:00 Magnesium Oxide (Mag-Ox 400) 400 mg DAILY PO Last administered on 12/02/18 09:27; Admin Dose 400 MG; Start 11/22/18 at 09:30 Enoxaparin Sodium (Lovenox) 30 mg DAILY SC Last administered on 12/02/18 09:32; Admin Dose 30 MG; Start 11/23/18 at 09:00 Methylphenidate HCl (Methylin) 20 mg TID@0700,1100,1500 PO Last administered on 12/02/18 06:49; Admin Dose 20 MG; Start 11/22/18 at 11:00 Levalbuterol (Xopenex Neb) 0.31 mg Q4H RESP THERAPY PRN HHN sob Last administered on 12/01/18 20:34; Admin Dose 0.31 MG; Start 11/26/18 at 08:30 Fluconazole (Diflucan) 100 mg DAILY PO Last administered on 12/02/18 09:27; Admin Dose 100 MG; Start 11/27/18 at 11:30 Prednisolone Acetate (Pred Mild 0.12%) 1 drop DAILY BOTH EYES Last administered on 12/02/18 09:40; Admin Dose 1 DROP; Start 11/28/18 at 09:00 Guaifenesin/ Codeine Phosphate (Robitussin Ac Liquid Cup) 10 ml Q4H PRN PO cough Last administered on 12/01/18 20:46; Admin Dose 10 ML; Start 11/27/18 at 14:00 Ascorbic Acid (Vitamin C) 250 mg QHS PO Last administered on 12/01/18 20:45; Admin Dose 250 MG; Start 11/27/18 at 21:00 Patient Own Medication 1 ea HS BOTH EYES Last administered on 12/01/18 20:45; Admin Dose 1 EA; Start 11/28/18 at 21:00 Assessment/Plan Additional Assessment/Plan Rehab- Pulmonary debility secondary to acute respiratory failure, pneumonia and sepsis; bimalleolar right ankle fracture status post ORIF Continue rehab at wheelchair level, limited ambulation Acute kidney injury. C. difficile- continue Vanco. Improving History of bipolar disorder- f/b vascular tech Crohn disease. Fibromyalgia. Hypothyroidism. Legally blind. History of uterine cancer. Gastritis. JONNIE LAIRD MD December 02, 2018 11:37
--- NOTE | 2018-12-02 12:09 | CONS ---
Consultation Date/Type/Reason Admit Date/Time Nov 20, 2018 at 19:13 Initial Consult Date Type of Consult SUBJECTIVE: Pt is alert, afebrile. No diarrhea today VS: stable T: 98.5 LABS: Reviewed. WBC- 7.7 Antimicrobials: Oral vancomycin and Diflucan Physical examination: GEN: fragile well-developed elderly white woman, who is alert in no distress. HENT: Head atraumatic normocephalic, sclera nonicteric vehicle mucosa dry, neck is supple PULM: chest rise symmetrical, breath sounds diminished bases Heart: S1-S2. Abdomen soft bowel sounds present. Extremities: Right lower extremity in the cast Assessment: 1. Urinary tract infection 2. C. difficile colitis 3. Crohn's disease 4. Bipolar disorder and schizophrenia 5. Positive Rosetta albicans in sputum==> on Diflucan 6. Chronic bladder incontinence status post endometrial cancer with radiation Plan: Pt is stable. Continue current treatment for C dif Date/Time of Note DATE: 12/02/18 TIME: 12:07 Exam/Review of Systems Exam Vitals Vital Signs Date Temp Pulse Resp B/P (MAP) Pulse Ox O2 O2 Flow FiO2 Time Delivery Rate 12/02/18 Nasal 2.0 08:00 Cannula 12/02/18 98.5 78 18 114/65 99 08:00 (81) Intake and Output 12/01/18 12/01/18 12/02/18 1515:00 23:00 07:00 IntakeIntake Total 980 ml OutputOutput Total 200 ml BalanceBalance -200 ml 980 ml Results Result Diagram: 12/02/18 0640 12/02/18 0640 Results 24hrs Laboratory Tests Test 12/02/18 06:40 White Blood Count 7.7 # Red Blood Count 3.66 L Hemoglobin 9.8 L Hematocrit 34.4 L Mean Corpuscular Volume 94.0 Mean Corpuscular Hemoglobin 26.8 L Mean Corpuscular Hemoglobin Concent 28.5 L Red Cell Distribution Width 14.9 H Platelet Count 209 # Mean Platelet Volume 10.7 H Immature Granulocytes % 6.900 H Neutrophils % Segmented Neutrophils % (Manual) 54 Lymphocytes % Lymphocytes % (Manual) 27 Monocytes % Monocytes % (Manual) 7 Eosinophils % Eosinophils % (Manual) 6 Basophils % Basophils % (Manual) 2 Myelocytes % (Manual) 4 H Nucleated Red Blood Cells % 0.0 Immature Granulocytes # 0.530 H Neutrophils # Lymphocytes (Manual) 2.0 Lymphocytes # Monocytes # Monocytes # (Manual) 0.5 Eosinophils # Basophils # Basophils # (Manual) 0.1 H Myelocytes # 0.3 H Nucleated Red Blood Cells # Platelet Estimate NORMAL Polychromasia 1+ Hypochromasia 1+ Anisocytosis 1+ Microcytosis 1+ Sodium Level 144 Potassium Level 4.4 Chloride Level 101 Carbon Dioxide Level 35 H Anion Gap 8 Blood Urea Nitrogen 14 Creatinine 1.08 H Est Glomerular Filtrat Rate mL/min 51 L Glucose Level 93 Calcium Level 9.5 Phosphorus Level 4.4 Magnesium Level 1.8 Medications Medication Current Medications Acetaminophen/ Hydrocodone Bitart ([place] ()) 1 tab Q4H PRN PO MODERATE PAIN LEVEL 4-6 Last administered on 12/02/18 06:51; Admin Dose 1 TAB; Start 11/20/18 at 23:30 Cholecalciferol (Vitamin D) 1,000 unit DAILY PO Last administered on 12/02/18 09:28; Admin Dose 1,000 UNIT; Start 11/21/18 at 09:00 Divalproex Sodium (Depakote Er) 500 mg DAILY PO Last administered on 12/02/18 09:29; Admin Dose 500 MG; Start 11/21/18 at 09:00 Diazepam (Valium) 2 mg BID PO Last administered on 12/02/18 09:28; Admin Dose 2 MG; Start 11/20/18 at 23:30 Divalproex Sodium (Depakote Er) 750 mg HS PO Last administered on 12/01/18 20:44; Admin Dose 750 MG; Start 11/20/18 at 23:30 Estradiol (Estrace) 2 mg HS PO Last administered on 12/01/18 20:45; Admin Dose 2 MG; Start 11/20/18 at 23:30 Mesalamine (Pentasa) 2,000 mg BID PO Last administered on 12/02/18 09:29; Admin Dose 2,000 MG; Start 11/20/18 at 23:30 Pantoprazole (Protonix Tab) 40 mg BID@0600,1800 PO Last administered on 12/02/18 06:49; Admin Dose 40 MG; Start 11/20/18 at 23:30 Perphenazine (Trilafon) 2 mg TID PRN PO AGITATION Last administered on 12/01/18 00:18; Admin Dose 2 MG; Start 11/20/18 at 23:30 Perphenazine (Trilafon) 4 mg BID PO Last administered on 12/02/18 09:28; Admin Dose 4 MG; Start 11/21/18 at 01:00 Ranitidine HCl (Zantac) 150 mg BID PO Last administered on 12/02/18 09:29; Admin Dose 150 MG; Start 11/20/18 at 23:30 Vancomycin HCl (Vancomycin Oral Syringe) 125 mg Q6 PO Last administered on 12/02/18 09:36; Admin Dose 125 MG; Start 11/21/18 at 00:00 Clozapine (Clozaril) 200 mg HS PO Last administered on 12/01/18 20:45; Admin Dose 200 MG; Start 11/21/18 at 21:00 Tranylcypromine Sulfate (Parnate) 60 mg DAILY@0700 PO Last administered on 12/02/18 06:49; Admin Dose 60 MG; Start 11/22/18 at 07:00 Magnesium Oxide (Mag-Ox 400) 400 mg DAILY PO Last administered on 12/02/18 09:27; Admin Dose 400 MG; Start 11/22/18 at 09:30 Enoxaparin Sodium (Lovenox) 30 mg DAILY SC Last administered on 12/02/18 09:32; Admin Dose 30 MG; Start 11/23/18 at 09:00 Methylphenidate HCl (Methylin) 20 mg TID@0700,1100,1500 PO Last administered on 12/02/18 12:04; Admin Dose 20 MG; Start 11/22/18 at 11:00 Levalbuterol (Xopenex Neb) 0.31 mg Q4H RESP THERAPY PRN HHN sob Last administered on 12/01/18 20:34; Admin Dose 0.31 MG; Start 11/26/18 at 08:30 Fluconazole (Diflucan) 100 mg DAILY PO Last administered on 12/02/18 09:27; Admin Dose 100 MG; Start 11/27/18 at 11:30 Prednisolone Acetate (Pred Mild 0.12%) 1 drop DAILY BOTH EYES Last administered on 12/02/18 09:40; Admin Dose 1 DROP; Start 11/28/18 at 09:00 Guaifenesin/ Codeine Phosphate (Robitussin Ac Liquid Cup) 10 ml Q4H PRN PO cough Last administered on 12/01/18 20:46; Admin Dose 10 ML; Start 11/27/18 at 14:00 Ascorbic Acid (Vitamin C) 250 mg QHS PO Last administered on 12/01/18 20:45; Admin Dose 250 MG; Start 11/27/18 at 21:00 Patient Own Medication 1 ea HS BOTH EYES Last administered on 12/01/18 20:45; Admin Dose 1 EA; Start 11/28/18 at 21:00 ORQUIDEA CESPEDES December 02, 2018 12:09
--- NOTE | 2018-12-02 12:36 | CONS ---
Assessment/Plan Assessment/Plan Hospital Course (Demo Recall) 1. Right malleolar fracture. The patient is status post open reduction internal fixation, currently stable. Continue physical therapy, continue pain control. 2. Obstructive sleep apnea. Continue CPAP. 3. Clostridium difficile. Continue oral vancomycin. 4. Urinary tract infection. s/p abx 5. History of Crohn's disease. Continue medical management. 6. Psychiatric disorder including bipolar disorder, schizophrenia, ADHD, anxiety disorder, depression. Continue current medical management. Follow up with psychiatry. 7. Hypomagnesemia. Continue to monitor and replete. 8. Acute kidney injury. Etiology is secondary to hemodynamics. Renal function is fluctuating. Continue to monitor. 9. PNA? sputum sample + shari: on fluconazole 10. Gastrointestinal and deep vein thrombosis prophylaxis. Consultation Date/Type/Reason Admit Date/Time Nov 20, 2018 at 19:13 Initial Consult Date Date/Time of Note DATE: 12/02/18 TIME: 12:34 24 HR Interval Summary Free Text/Dictation feeling tired denies n/v, f/c, shortness of breath, cough. diarrhea x1 this morning? d./w rn gen nad cv rrr pulm ctab abd soft, nd, nt +bs ext: no edema Exam/Review of Systems Exam Vitals Vital Signs Date Temp Pulse Resp B/P (MAP) Pulse Ox O2 O2 Flow FiO2 Time Delivery Rate 12/02/18 Nasal 2.0 08:00 Cannula 12/02/18 98.5 78 18 114/65 99 08:00 (81) Intake and Output 12/01/18 12/01/18 12/02/18 1515:00 23:00 07:00 IntakeIntake Total 980 ml OutputOutput Total 200 ml BalanceBalance -200 ml 980 ml Results Result Diagram: 12/02/18 0640 12/02/18 0640 Results 24hrs Laboratory Tests Test 12/02/18 06:40 White Blood Count 7.7 # Red Blood Count 3.66 L Hemoglobin 9.8 L Hematocrit 34.4 L Mean Corpuscular Volume 94.0 Mean Corpuscular Hemoglobin 26.8 L Mean Corpuscular Hemoglobin Concent 28.5 L Red Cell Distribution Width 14.9 H Platelet Count 209 # Mean Platelet Volume 10.7 H Immature Granulocytes % 6.900 H Neutrophils % Segmented Neutrophils % (Manual) 54 Lymphocytes % Lymphocytes % (Manual) 27 Monocytes % Monocytes % (Manual) 7 Eosinophils % Eosinophils % (Manual) 6 Basophils % Basophils % (Manual) 2 Myelocytes % (Manual) 4 H Nucleated Red Blood Cells % 0.0 Immature Granulocytes # 0.530 H Neutrophils # Lymphocytes (Manual) 2.0 Lymphocytes # Monocytes # Monocytes # (Manual) 0.5 Eosinophils # Basophils # Basophils # (Manual) 0.1 H Myelocytes # 0.3 H Nucleated Red Blood Cells # Platelet Estimate NORMAL Polychromasia 1+ Hypochromasia 1+ Anisocytosis 1+ Microcytosis 1+ Sodium Level 144 Potassium Level 4.4 Chloride Level 101 Carbon Dioxide Level 35 H Anion Gap 8 Blood Urea Nitrogen 14 Creatinine 1.08 H Est Glomerular Filtrat Rate mL/min 51 L Glucose Level 93 Calcium Level 9.5 Phosphorus Level 4.4 Magnesium Level 1.8 Medications Medication Current Medications Acetaminophen/ Hydrocodone Bitart ([place] (10/325)) 1 tab Q4H PRN PO MODERATE PAIN LEVEL 4-6 Last administered on 12/02/18 06:51; Admin Dose 1 TAB; Start 11/20/18 at 23:30 Cholecalciferol (Vitamin D) 1,000 unit DAILY PO Last administered on 12/02/18 09:28; Admin Dose 1,000 UNIT; Start 11/21/18 at 09:00 Divalproex Sodium (Depakote Er) 500 mg DAILY PO Last administered on 12/02/18 09:29; Admin Dose 500 MG; Start 11/21/18 at 09:00 Diazepam (Valium) 2 mg BID PO Last administered on 12/02/18 09:28; Admin Dose 2 MG; Start 11/20/18 at 23:30 Divalproex Sodium (Depakote Er) 750 mg HS PO Last administered on 12/01/18 20:44; Admin Dose 750 MG; Start 11/20/18 at 23:30 Estradiol (Estrace) 2 mg HS PO Last administered on 12/01/18 20:45; Admin Dose 2 MG; Start 11/20/18 at 23:30 Mesalamine (Pentasa) 2,000 mg BID PO Last administered on 12/02/18 09:29; Admin Dose 2,000 MG; Start 11/20/18 at 23:30 Pantoprazole (Protonix Tab) 40 mg BID@0600,1800 PO Last administered on 12/02/18 06:49; Admin Dose 40 MG; Start 11/20/18 at 23:30 Perphenazine (Trilafon) 2 mg TID PRN PO AGITATION Last administered on 12/01/18 00:18; Admin Dose 2 MG; Start 11/20/18 at 23:30 Perphenazine (Trilafon) 4 mg BID PO Last administered on 12/02/18 09:28; Admin Dose 4 MG; Start 11/21/18 at 01:00 Ranitidine HCl (Zantac) 150 mg BID PO Last administered on 12/02/18 09:29; Admin Dose 150 MG; Start 11/20/18 at 23:30 Vancomycin HCl (Vancomycin Oral Syringe) 125 mg Q6 PO Last administered on 12/02/18 09:36; Admin Dose 125 MG; Start 11/21/18 at 00:00 Clozapine (Clozaril) 200 mg HS PO Last administered on 12/01/18 20:45; Admin Dose 200 MG; Start 11/21/18 at 21:00 Tranylcypromine Sulfate (Parnate) 60 mg DAILY@0700 PO Last administered on 12/02/18 06:49; Admin Dose 60 MG; Start 11/22/18 at 07:00 Magnesium Oxide (Mag-Ox 400) 400 mg DAILY PO Last administered on 12/02/18 09:27; Admin Dose 400 MG; Start 11/22/18 at 09:30 Enoxaparin Sodium (Lovenox) 30 mg DAILY SC Last administered on 12/02/18 09:32; Admin Dose 30 MG; Start 11/23/18 at 09:00 Methylphenidate HCl (Methylin) 20 mg TID@0700,1100,1500 PO Last administered on 12/02/18 12:04; Admin Dose 20 MG; Start 11/22/18 at 11:00 Levalbuterol (Xopenex Neb) 0.31 mg Q4H RESP THERAPY PRN HHN sob Last administered on 12/01/18 20:34; Admin Dose 0.31 MG; Start 11/26/18 at 08:30 Fluconazole (Diflucan) 100 mg DAILY PO Last administered on 12/02/18 09:27; Admin Dose 100 MG; Start 11/27/18 at 11:30 Prednisolone Acetate (Pred Mild 0.12%) 1 drop DAILY BOTH EYES Last administered on 12/02/18 09:40; Admin Dose 1 DROP; Start 11/28/18 at 09:00 Guaifenesin/ Codeine Phosphate (Robitussin Ac Liquid Cup) 10 ml Q4H PRN PO cough Last administered on 12/01/18 20:46; Admin Dose 10 ML; Start 11/27/18 at 14:00 Ascorbic Acid (Vitamin C) 250 mg QHS PO Last administered on 12/01/18 20:45; Admin Dose 250 MG; Start 11/27/18 at 21:00 Patient Own Medication 1 ea HS BOTH EYES Last administered on 12/01/18 20:45; Admin Dose 1 EA; Start 11/28/18 at 21:00 ABIODUN REESE MD December 02, 2018 12:36
--- NOTE | 2018-12-02 13:01 | CONS ---
Date/Time of Note Date/Time of Note DATE: 12/02/18 TIME: 12:48 Consult Date/Type/Reason Admit Date Nov 20, 2018 at 19:13 Type of Consult Psych Subjective Patient is a 63-year-old female seen as a follow-up to review medications. Patient was advised from previous visits that the interviewer was not comfortable giving her an MAOI inhibitor or making med adjustment on its because of hypertensive crisis, however patient insisted that her outside psychiatrist has put her on these medications and she is comfortable with the medications. Parnate and stimulants or certain food and known to cause hypertensive crisis but she is adamant Objective Patient Appearance: Appropriate dress Voice Loudness: Normal Mood and Affect Description: Calm Mood or Affect: Cooperative (Sleepy) Speech Pattern: Clear Thought Process: Intact Hallucination Type: None Delusion Description: Not Present Assessment/Plan Recommendations Continue current dose of medications the interviewer does not feel comfortable increasing tannates because of hypertensive crisis ALICE CID NP December 02, 2018 13:00
[2018-12-02 15:30] VITALS: BP 116/57; PULSE 59; RESP 18
[2018-12-02 20:08] VITALS: BP 115/70; PULSE 113; RESP 18
[2018-12-02] MEDS: ASCORBIC ACID 250 MG TAB PO SCH (20:36)
[2018-12-02] MEDS: LUMIGAN 0.01% EYE DROPS BOTH EYES SCH (20:36)
[2018-12-02] MEDS: ESTRADIOL 1 MG TAB PO SCH (20:36)
[2018-12-02] MEDS: CLOZAPINE 100 MG TABLET PO SCH (20:44)
[2018-12-02] MEDS: GUAIFENESIN/CODEINE 5ML CUP PO PRN (20:54)
[2018-12-02] MEDS: LEVALBUTEROL (NEB) 0.31 MG/3 ML AMP HHN PRN (21:07)
[2018-12-03 02:58] VITALS: BP 96/55; PULSE 98; RESP 20
[2018-12-03] MEDS: VANCOMYCIN HCL 250 MG/5ML POSYG PO SCH ×5 (06:16→23:59)
[2018-12-03] MEDS: PANTOPRAZOLE (EC) 40 MG TAB PO SCH ×2 (06:16→18:20)
[2018-12-03] MEDS: TRANYLCYPROMINE 10 MG PO SCH (06:17)
[2018-12-03] MEDS: METHYLPHENIDATE 20 MG TAB PO SCH ×3 (06:17→15:00)
[2018-12-03 07:00] VITALS: BP 93/60; PULSE 107; RESP 18
[2018-12-03] MEDS: PERPHENAZINE 4 MG TAB PO SCH ×3 (09:00→22:02)
[2018-12-03] MEDS: MESALAMINE (SR) 250 MG CAP PO SCH ×3 (09:00→22:02)
[2018-12-03] MEDS: CHOLECALCIFEROL 1,000 UNIT TAB PO SCH (10:01)
[2018-12-03] MEDS: DIAZEPAM 2 MG TAB PO SCH ×2 (10:01→22:03)
[2018-12-03] MEDS: DIVALPROEX (ER) 250 MG TAB PO SCH ×2 (10:01→22:02)
[2018-12-03] MEDS: PREDNISOLONE ACET 0.12% 5 ML OPH BOTH EYES SCH (10:01)
[2018-12-03] MEDS: FLUCONAZOLE 100 MG TAB PO SCH (10:02)
[2018-12-03] MEDS: MAGNESIUM OXIDE 400 MG TAB PO SCH (10:02)
[2018-12-03] MEDS: HYDROCODONE/APAP (10/325) TAB PO PRN ×3 (10:02→22:19)
[2018-12-03] MEDS: RANITIDINE 150 MG TAB PO SCH ×2 (10:03→22:02)
--- NOTE | 2018-12-03 12:36 | CONS ---
Consultation Date/Type/Reason Admit Date/Time Nov 20, 2018 at 19:13 Initial Consult Date Type of Consult SUBJECTIVE: Pt is alert, afebrile. No acute events over night. VS: stable T: 97.8 LABS: Reviewed. Antimicrobials: Oral vancomycin and Diflucan Physical examination: GEN: fragile well-developed elderly white woman, who is alert in no distress. HENT: Head atraumatic normocephalic, sclera nonicteric vehicle mucosa dry, neck is supple PULM: chest rise symmetrical, breath sounds diminished bases Heart: S1-S2. Abdomen soft bowel sounds present. Extremities: Right lower extremity in the cast Assessment: 1. Urinary tract infection 2. C. difficile colitis 3. Crohn's disease 4. Bipolar disorder and schizophrenia 5. Positive Rosetta albicans in sputum==> on Diflucan 6. Chronic bladder incontinence status post endometrial cancer with radiation Plan: Pt is stable. Continue current treatment for C dif. D/C Diflucan Date/Time of Note DATE: 12/03/18 TIME: 12:35 Exam/Review of Systems Exam Vitals Vital Signs Date Temp Pulse Resp B/P (MAP) Pulse Ox O2 O2 Flow FiO2 Time Delivery Rate 12/03/18 97.8 107 18 93/60 (71) 90 Room Air 07:00 12/03/18 3.0 05:43 Intake and Output 12/02/18 12/02/18 12/03/18 1515:00 23:00 07:00 OutputOutput Total 2 ml 200 ml BalanceBalance -2 ml -200 ml Results Result Diagram: 12/02/18 0640 12/02/18 0640 Medications Medication Current Medications Acetaminophen/ Hydrocodone Bitart ([place] (10/325)) 1 tab Q4H PRN PO MODERATE PAIN LEVEL 4-6 Last administered on 12/03/18at 10:02; Admin Dose 1 TAB; Start 11/20/18 at 23:30 Cholecalciferol (Vitamin D) 1,000 unit DAILY PO Last administered on 12/03/18 10:01; Admin Dose 1,000 UNIT; Start 11/21/18 at 09:00 Divalproex Sodium (Depakote Er) 500 mg DAILY PO Last administered on 12/03/18 10:01; Admin Dose 500 MG; Start 11/21/18 at 09:00 Diazepam (Valium) 2 mg BID PO Last administered on 12/03/18 10:01; Admin Dose 2 MG; Start 11/20/18 at 23:30 Divalproex Sodium (Depakote Er) 750 mg HS PO Last administered on 12/02/18 20:35; Admin Dose 750 MG; Start 11/20/18 at 23:30 Estradiol (Estrace) 2 mg HS PO Last administered on 12/02/18 20:36; Admin Dose 2 MG; Start 11/20/18 at 23:30 Mesalamine (Pentasa) 2,000 mg BID PO Last administered on 12/02/18 20:35; Admin Dose 2,000 MG; Start 11/20/18 at 23:30 Pantoprazole (Protonix Tab) 40 mg BID@0600,1800 PO Last administered on 12/03/18 06:16; Admin Dose 40 MG; Start 11/20/18 at 23:30 Perphenazine (Trilafon) 2 mg TID PRN PO AGITATION Last administered on 12/01/18 00:18; Admin Dose 2 MG; Start 11/20/18 at 23:30 Perphenazine (Trilafon) 4 mg BID PO Last administered on 12/02/18 20:45; Admin Dose 4 MG; Start 11/21/18 at 01:00 Ranitidine HCl (Zantac) 150 mg BID PO Last administered on 12/03/18 10:03; Admin Dose 150 MG; Start 11/20/18 at 23:30 Vancomycin HCl (Vancomycin Oral Syringe) 125 mg Q6 PO Last administered on 12/03/18 06:16; Admin Dose 125 MG; Start 11/21/18 at 00:00 Clozapine (Clozaril) 200 mg HS PO Last administered on 12/02/18 20:44; Admin Dose 200 MG; Start 11/21/18 at 21:00 Tranylcypromine Sulfate (Parnate) 60 mg DAILY@0700 PO Last administered on 12/03/18 06:17; Admin Dose 60 MG; Start 11/22/18 at 07:00 Magnesium Oxide (Mag-Ox 400) 400 mg DAILY PO Last administered on 12/03/18 10:02; Admin Dose 400 MG; Start 11/22/18 at 09:30 Enoxaparin Sodium (Lovenox) 30 mg DAILY SC Last administered on 12/02/18 09:32; Admin Dose 30 MG; Start 11/23/18 at 09:00 Methylphenidate HCl (Methylin) 20 mg TID@0700,1100,1500 PO Last administered on 12/03/18 06:17; Admin Dose 20 MG; Start 11/22/18 at 11:00 Levalbuterol (Xopenex Neb) 0.31 mg Q4H RESP THERAPY PRN HHN sob Last administered on 12/02/18 21:07; Admin Dose 0.31 MG; Start 11/26/18 at 08:30 Prednisolone Acetate (Pred Mild 0.12%) 1 drop DAILY BOTH EYES Last administered on 12/03/18 10:01; Admin Dose 1 DROP; Start 11/28/18 at 09:00 Guaifenesin/ Codeine Phosphate (Robitussin Ac Liquid Cup) 10 ml Q4H PRN PO cough Last administered on 12/02/18 20:54; Admin Dose 10 ML; Start 11/27/18 at 14:00 Ascorbic Acid (Vitamin C) 250 mg QHS PO Last administered on 12/02/18 20:36; Admin Dose 250 MG; Start 11/27/18 at 21:00 Patient Own Medication 1 ea HS BOTH EYES Last administered on 12/02/18 20:36; Admin Dose 1 EA; Start 11/28/18 at 21:00 ORQUIDEA CESPEDES December 03, 2018 12:36
--- NOTE | 2018-12-03 12:36 | CONS ---
Assessment/Plan Assessment/Plan Hospital Course (Demo Recall) 1. Right malleolar fracture. The patient is status post open reduction internal fixation, currently stable. Continue physical therapy, continue pain control. 2. Obstructive sleep apnea. Continue CPAP. 3. Clostridium difficile. Continue oral vancomycin. 4. Urinary tract infection. s/p abx 5. History of Crohn's disease. Continue medical management. 6. Psychiatric disorder including bipolar disorder, schizophrenia, ADHD, anxiety disorder, depression. Continue current medical management. Follow up with psychiatry. 7. Hypomagnesemia. Continue to monitor and replete. 8. Acute kidney injury. Etiology is secondary to hemodynamics. Renal function is fluctuating. Continue to monitor. 9. PNA? sputum sample + shari: on fluconazole 10. Gastrointestinal and deep vein thrombosis prophylaxis. Consultation Date/Type/Reason Admit Date/Time Nov 20, 2018 at 19:13 Initial Consult Date Date/Time of Note DATE: 12/03/18 TIME: 12:35 24 HR Interval Summary Free Text/Dictation denies n/v, shortness of breath d/w rn gen nad cv rrrr pulm ctab abd soft, nd, nt +bs ext: no edema Exam/Review of Systems Exam Vitals Vital Signs Date Temp Pulse Resp B/P (MAP) Pulse Ox O2 O2 Flow FiO2 Time Delivery Rate 12/03/18 97.8 107 18 93/60 (71) 90 Room Air 07:00 12/03/18 3.0 05:43 Intake and Output 12/02/18 12/02/18 12/03/18 1414:59 22:59 06:59 OutputOutput Total 2 ml 200 ml BalanceBalance -2 ml -200 ml Results Result Diagram: 12/02/18 0640 12/02/18 0640 Medications Medication Current Medications Acetaminophen/ Hydrocodone Bitart ([place] (10/325)) 1 tab Q4H PRN PO MODERATE PAIN LEVEL 4-6 Last administered on 12/03/18 10:02; Admin Dose 1 TAB; Start 11/20/18 at 23:30 Cholecalciferol (Vitamin D) 1,000 unit DAILY PO Last administered on 12/03/18 10:01; Admin Dose 1,000 UNIT; Start 11/21/18 at 09:00 Divalproex Sodium (Depakote Er) 500 mg DAILY PO Last administered on 12/03/18 10:01; Admin Dose 500 MG; Start 11/21/18 at 09:00 Diazepam (Valium) 2 mg BID PO Last administered on 12/03/18 10:01; Admin Dose 2 MG; Start 11/20/18 at 23:30 Divalproex Sodium (Depakote Er) 750 mg HS PO Last administered on 12/02/18 20:35; Admin Dose 750 MG; Start 11/20/18 at 23:30 Estradiol (Estrace) 2 mg HS PO Last administered on 12/02/18 20:36; Admin Dose 2 MG; Start 11/20/18 at 23:30 Mesalamine (Pentasa) 2,000 mg BID PO Last administered on 12/02/18 20:35; Admin Dose 2,000 MG; Start 11/20/18 at 23:30 Pantoprazole (Protonix Tab) 40 mg BID@0600,1800 PO Last administered on 12/03/18 06:16; Admin Dose 40 MG; Start 11/20/18 at 23:30 Perphenazine (Trilafon) 2 mg TID PRN PO AGITATION Last administered on 12/01/18 00:18; Admin Dose 2 MG; Start 11/20/18 at 23:30 Perphenazine (Trilafon) 4 mg BID PO Last administered on 12/02/18 20:45; Admin Dose 4 MG; Start 11/21/18 at 01:00 Ranitidine HCl (Zantac) 150 mg BID PO Last administered on 12/03/18 10:03; Admin Dose 150 MG; Start 11/20/18 at 23:30 Vancomycin HCl (Vancomycin Oral Syringe) 125 mg Q6 PO Last administered on 12/03/18 06:16; Admin Dose 125 MG; Start 11/21/18 at 00:00 Clozapine (Clozaril) 200 mg HS PO Last administered on 12/02/18 20:44; Admin Dose 200 MG; Start 11/21/18 at 21:00 Tranylcypromine Sulfate (Parnate) 60 mg DAILY@0700 PO Last administered on 12/03/18 06:17; Admin Dose 60 MG; Start 11/22/18 at 07:00 Magnesium Oxide (Mag-Ox 400) 400 mg DAILY PO Last administered on 12/03/18 10:02; Admin Dose 400 MG; Start 11/22/18 at 09:30 Enoxaparin Sodium (Lovenox) 30 mg DAILY SC Last administered on 12/02/18 09:32; Admin Dose 30 MG; Start 11/23/18 at 09:00 Methylphenidate HCl (Methylin) 20 mg TID@0700,1100,1500 PO Last administered on 12/03/18 06:17; Admin Dose 20 MG; Start 11/22/18 at 11:00 Levalbuterol (Xopenex Neb) 0.31 mg Q4H RESP THERAPY PRN HHN sob Last administered on 12/02/18 21:07; Admin Dose 0.31 MG; Start 11/26/18 at 08:30 Prednisolone Acetate (Pred Mild 0.12%) 1 drop DAILY BOTH EYES Last administered on 12/03/18 10:01; Admin Dose 1 DROP; Start 11/28/18 at 09:00 Guaifenesin/ Codeine Phosphate (Robitussin Ac Liquid Cup) 10 ml Q4H PRN PO cough Last administered on 12/02/18 20:54; Admin Dose 10 ML; Start 11/27/18 at 14:00 Ascorbic Acid (Vitamin C) 250 mg QHS PO Last administered on 12/02/18 20:36; Admin Dose 250 MG; Start 11/27/18 at 21:00 Patient Own Medication 1 ea HS BOTH EYES Last administered on 12/02/18 20:36; Admin Dose 1 EA; Start 11/28/18 at 21:00 ABIODUN REESE MD December 03, 2018 12:36
[2018-12-03 14:00] VITALS: BP 98/60; PULSE 92; RESP 18
[2018-12-03] MEDS: ENOXAPARIN 30 MG/0.3 ML SYG SC SCH (14:56)
[2018-12-03] MEDS: GUAIFENESIN/CODEINE 5ML CUP PO PRN ×2 (14:56→22:19)
[2018-12-03 20:00] VITALS: BP 100/65; PULSE 107; RESP 18
[2018-12-03] MEDS: ESTRADIOL 1 MG TAB PO SCH (22:03)
[2018-12-03] MEDS: ASCORBIC ACID 250 MG TAB PO SCH (22:03)
[2018-12-03] MEDS: LUMIGAN 0.01% EYE DROPS BOTH EYES SCH (22:03)
[2018-12-03] MEDS: CLOZAPINE 100 MG TABLET PO SCH (22:03)
[2018-12-04 02:30] VITALS: BP 110/71; PULSE 96; RESP 18
[2018-12-04] MEDS: VANCOMYCIN HCL 250 MG/5ML POSYG PO SCH ×3 (06:19→17:51)
[2018-12-04] MEDS: TRANYLCYPROMINE 10 MG PO SCH (06:19)
[2018-12-04] MEDS: PANTOPRAZOLE (EC) 40 MG TAB PO SCH ×2 (06:19→17:51)
[2018-12-04] MEDS: METHYLPHENIDATE 20 MG TAB PO SCH ×3 (06:19→15:00)
[2018-12-04 07:00] VITALS: BP 96/56; PULSE 106; RESP 18
--- NOTE | 2018-12-04 09:01 | PN ---
DATE: 12/04/2018 SUBJECTIVE: The patient is stable, no events overnight. No fevers, chills, nausea, or vomiting. OBJECTIVE: VITAL SIGNS: Blood pressure is 110/71, respirations 18, pulse 96, temperature 97.9. HEENT: Head is normocephalic. NECK: Supple. HEART: Regular rate. LUNGS: Show diminished breath sounds at the base. ABDOMEN: Soft, nontender to palpation without rebound or guarding. EXTREMITIES: Negative for clubbing, cyanosis, no edema. DERMATOLOGIC: No rashes. MUSCULOSKELETAL: No joint effusion. NEUROLOGIC: No change in exam. MEDICATIONS: Reviewed. LABORATORY DATA: Reviewed. ASSESSMENT AND PLAN: 1. Right malleolar fracture. The patient is status post open reduction internal fixation. Currentl y stable. Continue physical therapy and occupational therapy, continue pain control. 2. Obstructive sleep apnea. Continue CPAP. 3. Clostridium difficile. Continue oral vancomycin. 4. Urinary tract infection. The patient is completing antibiotic course. 5. History of Crohn's disease. Continue medical management. 6. Psychiatric disorder including bipolar disorder, schizophrenia, ADHD, anxiety disorder, depressio n. Continue medical management. Follow up with psychiatry. 7. Hypomagnesemia. Continue to monitor and replete as needed. 8. Acute kidney injury, etiology is secondary to hemodynamics. Renal function has been fluctuating but overall stable. 9. Gastrointestinal and deep vein thrombosis prophylaxis. 10. Bronchitis. The patient is completing antibiotic course. The patient's sputum culture did grow out Diflucan. The patient has completed antifungal course. Continue to monitor. Dictated By: NICK CORBIN DO NR/NTS Conf#: [id number] DID#: [id number] CC: PALAK JENKINS NP; JONNIE LIARD MD; ANILA NATH DO;*EndCC*
[2018-12-04] MEDS: DIVALPROEX (ER) 250 MG TAB PO SCH ×2 (09:26→21:04)
[2018-12-04] MEDS: DIAZEPAM 2 MG TAB PO SCH ×2 (09:26→21:05)
[2018-12-04] MEDS: PERPHENAZINE 4 MG TAB PO SCH ×2 (09:26→21:06)
[2018-12-04] MEDS: RANITIDINE 150 MG TAB PO SCH ×2 (09:26→21:05)
[2018-12-04] MEDS: MAGNESIUM OXIDE 400 MG TAB PO SCH (09:27)
[2018-12-04] MEDS: PREDNISOLONE ACET 0.12% 5 ML OPH BOTH EYES SCH (09:28)
[2018-12-04] MEDS: ENOXAPARIN 30 MG/0.3 ML SYG SC SCH (09:30)
[2018-12-04] MEDS: HYDROCODONE/APAP (10/325) TAB PO PRN ×3 (09:35→22:37)
[2018-12-04] MEDS: MESALAMINE (SR) 250 MG CAP PO SCH ×2 (09:35→21:03)
[2018-12-04] MEDS: CHOLECALCIFEROL 1,000 UNIT TAB PO SCH (09:35)
--- NOTE | 2018-12-04 09:46 | PN ---
Date/Time of Note Date/Time of Note DATE: 12/04/18 TIME: 09:46 Objective Vital Signs Date Temp Pulse Resp B/P (MAP) Pulse Ox O2 O2 Flow FiO2 Time Delivery Rate 12/04/18 3.0 07:35 12/04/18 98.4 106 18 96/56 (69) 94 Room Air 07:00 12/03/18 21 15:57 Intake and Output 12/03/18 12/03/18 12/04/18 1515:00 23:00 07:00 IntakeIntake Total 1200 ml OutputOutput Total 600 ml BalanceBalance 600 ml Exam INTERDISCIPLINARY TEAM CONFERENCE Attended by PT, OT, ST, Yard General Car Supervisor, Social Work, Rehabilitation Nursing, Bakery Sales Clerk and Supervisor Sound TechnicianMold Chipper Exam: Pulm- cta Abd-soft BOWEL- Cont BLADDER-Cont SKIN- intact OT- DRESSING-sba BATHING-sba TOILETING-sba PT- BED MOBILITY-sba TRANSFERS-min AMBULATION-min 15 feet Wheelchair - sba A/P- Interdisciplinary team conference held today. Please see interdisciplinary sheet. Working toward d.c. on 12/05 with post discharge follow up of physical therapy, occupational therapy. Results/Medications Result Diagram: 12/02/1840 12/02/18 0640 Medications Current Medications Acetaminophen/ Hydrocodone Bitart ([place] (10/325)) 1 tab Q4H PRN PO MODERATE PAIN LEVEL 4-6 Last administered on 12/04/18 09:35; Admin Dose 1 TAB; Start 11/20/18 at 23:30 Cholecalciferol (Vitamin D) 1,000 unit DAILY PO Last administered on 12/04/18 09:35; Admin Dose 1,000 UNIT; Start 11/21/18 at 09:00 Divalproex Sodium (Depakote Er) 500 mg DAILY PO Last administered on 12/04/18 09:26; Admin Dose 500 MG; Start 11/21/18 at 09:00 Diazepam (Valium) 2 mg BID PO Last administered on 12/04/18 09:26; Admin Dose 2 MG; Start 11/20/18 at 23:30 Divalproex Sodium (Depakote Er) 750 mg HS PO Last administered on 12/03/18at 22:02; Admin Dose 750 MG; Start 11/20/18 at 23:30 Estradiol (Estrace) 2 mg HS PO Last administered on 12/03/18 22:03; Admin Dose 2 MG; Start 11/20/18 at 23:30 Mesalamine (Pentasa) 2,000 mg BID PO Last administered on 12/04/18 09:35; Admin Dose 2,000 MG; Start 11/20/18 at 23:30 Pantoprazole (Protonix Tab) 40 mg BID@0600,1800 PO Last administered on 12/04/18 06:19; Admin Dose 40 MG; Start 11/20/18 at 23:30 Perphenazine (Trilafon) 2 mg TID PRN PO AGITATION Last administered on 12/01/18 00:18; Admin Dose 2 MG; Start 11/20/18 at 23:30 Perphenazine (Trilafon) 4 mg BID PO Last administered on 12/04/18 09:26; Admin Dose 4 MG; Start 11/21/18 at 01:00 Ranitidine HCl (Zantac) 150 mg BID PO Last administered on 12/04/18 09:26; Admin Dose 150 MG; Start 11/20/18 at 23:30 Vancomycin HCl (Vancomycin Oral Syringe) 125 mg Q6 PO Last administered on 12/04/18 06:19; Admin Dose 125 MG; Start 11/21/18 at 00:00 Clozapine (Clozaril) 200 mg HS PO Last administered on 12/03/18 22:03; Admin Dose 200 MG; Start 11/21/18 at 21:00 Tranylcypromine Sulfate (Parnate) 60 mg DAILY@0700 PO Last administered on 12/04/18 06:19; Admin Dose 60 MG; Start 11/22/18 at 07:00 Magnesium Oxide (Mag-Ox 400) 400 mg DAILY PO Last administered on 12/04/18 09:27; Admin Dose 400 MG; Start 11/22/18 at 09:30 Enoxaparin Sodium (Lovenox) 30 mg DAILY SC Last administered on 12/04/18 09:30; Admin Dose 30 MG; Start 11/23/18 at 09:00 Methylphenidate HCl (Methylin) 20 mg TID@0700,1100,1500 PO Last administered on 12/04/18 06:19; Admin Dose 20 MG; Start 11/22/18 at 11:00 Levalbuterol (Xopenex Neb) 0.31 mg Q4H RESP THERAPY PRN HHN sob Last administered on 12/02/18 21:07; Admin Dose 0.31 MG; Start 11/26/18 at 08:30 Prednisolone Acetate (Pred Mild 0.12%) 1 drop DAILY BOTH EYES Last administered on 12/04/18 09:28; Admin Dose 1 DROP; Start 11/28/18 at 09:00 Guaifenesin/ Codeine Phosphate (Robitussin Ac Liquid Cup) 10 ml Q4H PRN PO cough Last administered on 12/03/18 22:19; Admin Dose 10 ML; Start 11/27/18 at 14:00 Ascorbic Acid (Vitamin C) 250 mg QHS PO Last administered on 12/03/18 22:03; Admin Dose 250 MG; Start 11/27/18 at 21:00 Patient Own Medication 1 ea HS BOTH EYES Last administered on 12/03/18 22:03; Admin Dose 1 EA; Start 11/28/18 at 21:00 JONNIE LAIRD MD December 04, 2018 09:46
[2018-12-04] MEDS: GUAIFENESIN/CODEINE 5ML CUP PO PRN ×2 (13:10→21:09)
[2018-12-04 14:00] VITALS: BP 111/68; PULSE 102; RESP 18
[2018-12-04 20:00] VITALS: BP 113/77; PULSE 101; RESP 18
[2018-12-04] MEDS: LUMIGAN 0.01% EYE DROPS BOTH EYES SCH (21:03)
[2018-12-04] MEDS: ESTRADIOL 1 MG TAB PO SCH (21:05)
[2018-12-04] MEDS: ASCORBIC ACID 250 MG TAB PO SCH (21:05)
[2018-12-04] MEDS: CLOZAPINE 100 MG TABLET PO SCH (21:43)
[2018-12-05] MEDS: VANCOMYCIN HCL 250 MG/5ML POSYG PO SCH ×3 (00:07→11:13)
[2018-12-05 02:38] VITALS: BP_SYST 128; BP_SYST 98; BP_DIAS 58; BP_DIAS 59; PULSE 100; PULSE 63; RESP 18
[2018-12-05] MEDS: PANTOPRAZOLE (EC) 40 MG TAB PO SCH (06:46)
[2018-12-05] MEDS: HYDROCODONE/APAP (10/325) TAB PO PRN ×2 (06:46→11:14)
[2018-12-05] MEDS: METHYLPHENIDATE 20 MG TAB PO SCH ×2 (06:46→11:13)
[2018-12-05] MEDS: TRANYLCYPROMINE 10 MG PO SCH (06:47)
[2018-12-05 07:30] VITALS: BP 102/65; PULSE 102; RESP 20
--- NOTE | 2018-12-05 08:45 | PN ---
DATE: 12/05/2018 SUBJECTIVE: The patient is stable. No fever, chills, nausea, or vomiting. OBJECTIVE: VITAL SIGNS: Blood pressure is 113/77, pulse 106, respirations 18, temperature 98.4. HEENT: Head is normocephalic. NECK: Supple. HEART: Regular rate. LUNGS: Show diminished breath sounds at the base. ABDOMEN: Soft, nontender to palpation without rebound or guarding. EXTREMITIES: Negative for clubbing, cyanosis, no edema. DERMATOLOGIC: No rashes. MUSCULOSKELETAL: No joint effusion. NEUROLOGIC: No change in exam. MEDICATIONS: Reviewed. LABORATORY DATA: Reviewed. ASSESSMENT AND PLAN: 1. Right malleolar fracture. The patient is status post open reduction internal fixation. Currentl y stable. Continue physical therapy and occupational therapy, continue pain control. 2. Obstructive sleep apnea. Continue CPAP. 3. Clostridium difficile. Continue oral vancomycin. 4. Urinary tract infection. The patient has completed antibiotic course. 5. History of Crohn's disease. Continue medical management. 6. Psychiatric disorder including bipolar, schizophrenia, ADHD, anxiety disorder, depression. Gabriela nue medical management. Appreciate psychiatry's evaluation. 7. Hypomagnesemia. Continue to monitor and replete as needed. 8. Acute kidney injury, etiology is secondary to hemodynamics. Renal function has been fluctuating but overall stable, continue to monitor. 9. Bronchitis. The patient is completing antibiotic course. Sputum culture is positive for shari . The patient has completed antifungal course. Dictated By: NICK CORBIN DO NR/NTS Conf#: [id number] DID#: [id number] CC: PALAK JENKINS NP; ANILA NATH DO; JONNIE LAIRD MD;*EndCC*
[2018-12-05] MEDS: ENOXAPARIN 30 MG/0.3 ML SYG SC SCH (09:00)
[2018-12-05] MEDS: PREDNISOLONE ACET 0.12% 5 ML OPH BOTH EYES SCH (09:15)
[2018-12-05] MEDS: MAGNESIUM OXIDE 400 MG TAB PO SCH (09:16)
[2018-12-05] MEDS: CHOLECALCIFEROL 1,000 UNIT TAB PO SCH (09:16)
[2018-12-05] MEDS: DIAZEPAM 2 MG TAB PO SCH (09:16)
[2018-12-05] MEDS: PERPHENAZINE 4 MG TAB PO SCH (09:16)
[2018-12-05] MEDS: RANITIDINE 150 MG TAB PO SCH (09:16)
[2018-12-05] MEDS: MESALAMINE (SR) 250 MG CAP PO SCH (09:16)
[2018-12-05] MEDS: DIVALPROEX (ER) 250 MG TAB PO SCH (09:16)
--- NOTE | 2018-12-05 11:45 | CONS ---
Assessment/Plan Assessment/Plan Hospital Course (Demo Recall) No events, feels good, no fevers Antimicrobials: Oral vancomycin Physical examination fragile well-developed elderly white woman who is alert in no distress. Head atraumatic normocephalic sclera nonicteric vehicle mucosa dry neck is supple chest rise symmetrical breath sounds diminished bases heart: S1- S2. Abdomen soft bowel sounds present. Extremities: Right lower extremity in the cast Assessment: 1. Urinary tract infection 2. C. difficile colitis 3. Crohn's disease 4. Bipolar disorder and schizophrenia 5. Positive [place] albicans in sputum==> on Diflucan 6. Chronic bladder incontinence status post endometrial cancer with radiation Plan: Remains stable, ok dc on oral Vanco for 7 days Consultation Date/Type/Reason Admit Date/Time Nov 20, 2018 at 19:13 Initial Consult Date Type of Consult id Date/Time of Note DATE: 12/05/18 TIME: 11:44 Exam/Review of Systems Exam Vitals Vital Signs Date Temp Pulse Resp B/P (MAP) Pulse Ox O2 O2 Flow FiO2 Time Delivery Rate 12/05/18 98.3 102 20 102/65 97 Nasal 2.0 07:30 (77) Cannula 12/03/18 21 15:57 Intake and Output 12/04/18 12/04/18 12/05/18 1515:00 23:00 07:00 IntakeIntake Total 1200 ml OutputOutput Total 600 ml BalanceBalance 600 ml Results Result Diagram: 12/02/18 0640 12/02/18 0640 Medications Medication Current Medications Acetaminophen/ Hydrocodone Bitart ([place] (10/325)) 1 tab Q4H PRN PO MODERATE PAIN LEVEL 4-6 Last administered on 12/05/18at 11:14; Admin Dose 1 TAB; Start 11/20/18 at 23:30 Cholecalciferol (Vitamin D) 1,000 unit DAILY PO Last administered on 12/05/18at 09:16; Admin Dose 1,000 UNIT; Start 11/21/18 at 09:00 Divalproex Sodium (Depakote Er) 500 mg DAILY PO Last administered on 12/05/18at 09:16; Admin Dose 500 MG; Start 11/21/18 at 09:00 Diazepam (Valium) 2 mg BID PO Last administered on 12/05/18at 09:16; Admin Dose 2 MG; Start 11/20/18 at 23:30 Divalproex Sodium (Depakote Er) 750 mg HS PO Last administered on 12/04/18 21:04; Admin Dose 750 MG; Start 11/20/18 at 23:30 Estradiol (Estrace) 2 mg HS PO Last administered on 12/04/18 21:05; Admin Dose 2 MG; Start 11/20/18 at 23:30 Mesalamine (Pentasa) 2,000 mg BID PO Last administered on 12/05/18 09:16; Admin Dose 2,000 MG; Start 11/20/18 at 23:30 Pantoprazole (Protonix Tab) 40 mg BID@0600,1800 PO Last administered on 12/05/18 06:46; Admin Dose 40 MG; Start 11/20/18 at 23:30 Perphenazine (Trilafon) 2 mg TID PRN PO AGITATION Last administered on 12/01/18 00:18; Admin Dose 2 MG; Start 11/20/18 at 23:30 Perphenazine (Trilafon) 4 mg BID PO Last administered on 12/05/18 09:16; Admin Dose 4 MG; Start 11/21/18 at 01:00 Ranitidine HCl (Zantac) 150 mg BID PO Last administered on 12/05/18 09:16; Admin Dose 150 MG; Start 11/20/18 at 23:30 Vancomycin HCl (Vancomycin Oral Syringe) 125 mg Q6 PO Last administered on 12/05/18 11:13; Admin Dose 125 MG; Start 11/21/18 at 00:00 Clozapine (Clozaril) 200 mg HS PO Last administered on 12/04/18 21:43; Admin Dose 200 MG; Start 11/21/18 at 21:00 Tranylcypromine Sulfate (Parnate) 60 mg DAILY@0700 PO Last administered on 12/05/18 06:47; Admin Dose 60 MG; Start 11/22/18 at 07:00 Magnesium Oxide (Mag-Ox 400) 400 mg DAILY PO Last administered on 12/05/18 09:16; Admin Dose 400 MG; Start 11/22/18 at 09:30 Enoxaparin Sodium (Lovenox) 30 mg DAILY SC Last administered on 12/04/18 09:30; Admin Dose 30 MG; Start 11/23/18 at 09:00 Methylphenidate HCl (Methylin) 20 mg TID@0700,1100,1500 PO Last administered on 12/05/18 11:13; Admin Dose 20 MG; Start 11/22/18 at 11:00 Levalbuterol (Xopenex Neb) 0.31 mg Q4H RESP THERAPY PRN HHN sob Last administered on 12/02/18 21:07; Admin Dose 0.31 MG; Start 11/26/18 at 08:30 Prednisolone Acetate (Pred Mild 0.12%) 1 drop DAILY BOTH EYES Last administered on 12/05/18 09:15; Admin Dose 1 DROP; Start 11/28/18 at 09:00 Guaifenesin/ Codeine Phosphate (Robitussin Ac Liquid Cup) 10 ml Q4H PRN PO cough Last administered on 12/04/18 21:09; Admin Dose 10 ML; Start 11/27/18 at 14:00 Ascorbic Acid (Vitamin C) 250 mg QHS PO Last administered on 12/04/18 21:05; Admin Dose 250 MG; Start 11/27/18 at 21:00 Patient Own Medication 1 ea HS BOTH EYES Last administered on 12/04/18 21:03; Admin Dose 1 EA; Start 11/28/18 at 21:00 IFRAH BOLANOS NP December 05, 2018 11:45
--- NOTE | 2018-12-05 12:55 | DS ---
Date/Time of Note Date/Time of Note DATE: 12/05/18 TIME: 12:54 Discharge Summary Admission/Discharge Info Admit Date/Time Nov 20, 2018 at 19:13 Discharge Date/Time Discharge Diagnosis 1. Pulmonary debility secondary to acute respiratory failure, pneumonia and se psis. 2. Other orthopedic injury with bimalleolar right ankle fracture status post open reduction internal fixation. 3. C. difficile. 4. History of bipolar disorder. 5. Crohn disease. 6. Fibromyalgia. 7. Hypothyroidism. 8. Legally blind. 9. History of uterine cancer. 10. Gastritis. 11. Improvements in self-care and mobility. Patient Condition: Good Hospital Course The patient was admitted for comprehensive interdisciplinary rehabilitation and made steady functional gains from a Max level to a SBA/min level for self care tasks and mobility including wheelchair mobility and ambulation with the use of a FWW. Patient is being discharged home with the recommendation of home health PT, OT and RN follow up. Caregiver training reviewed. The DC meds are per the medication reconciliation sheet. The discharge equipment recommendations include: FWW, BSC, shower chair. The patient will follow up with PMD upon DC. Home Meds Reported Medications Bimatoprost* (Lumigan*) 0.01%-2.5 Ml Opht Drops, 1 DROP BOTH EYES HS, EA 11/27/18 Gabapentin* (Gabapentin*) 100 Mg Capsule, 100 MG PO HS, #90 CAP 11/20/18 Levothyroxine Sodium* (Synthroid*) 25 Mcg Tablet, 0.125 MG PO DAILY, #30 TAB 11/20/18 Clozapine* (Clozaril*) 100 Mg Tab, 200 MG PO HS, TAB 11/20/18 Ranitidine Hcl* (Zantac*) 150 Mg Tablet, 150 MG PO BID, #60 TAB 11/20/18 Methylphenidate Hcl* (Ritalin*) 20 Mg Tablet, 25 MG PO TID, TAB 11/20/18 Perphenazine* (Trilafon*) 2 Mg Tab, 2 MG PO TID PRN for AGITATION, TAB 11/20/18 Celecoxib* (Celebrex*) 200 Mg Capsule, 200 MG PO BID, CAP 11/20/18 Mesalamine* (Pentasa*) 500 Mg Capsule.sa, 2000 MG PO BID, CAP 11/20/18 Hydrocodone/Acetaminophen ([place] 10-325 Tablet) 1 Each Tablet, 1 EACH PO Q4 PRN for PAIN, TAB 11/20/18 Divalproex Sodium* (Divalproex Sodium*) 500 Mg Tablet.dr, 750 MG PO HS, #90 TAB 11/20/18 Diazepam* (Diazepam*) 2 Mg Tablet, 2 MG PO BID, TAB 11/20/18 Perphenazine* (Trilafon*) 4 Mg Tab, 4 MG PO BID, TAB 11/20/18 Divalproex Sodium* (Divalproex Sodium*) 500 Mg Tablet.dr, 500 MG PO BID, #90 TAB 500mg in the AM 11/20/18 Cholecalciferol* (Vitamin D3*) 1,000 Unit Tablet, 1000 UNIT PO DAILY, TAB 11/20/18 Estradiol* (Estrace*) 2 Mg Tab, 3 MG PO HS, TAB 11/20/18 Omeprazole* (Omeprazole*) 40 Mg Capsule.dr, 40 MG PO BID, #30 CAP 11/20/18 Tranylcypromine Sulfate (Parnate) 10 Mg Tab, 80 MG PO DAILY, TAB 11/20/18 Vancomycin Hcl (Vancocin Hcl Oral) 125 Mg Cap, 125 MG PO Q6, CAP 11/20/18 Primary Care Provider Not On Staff Doctor JONNIE LAIRD MD December 05, 2018 12:55
== END 2018-12-05 11:45 | disposition home health service (06) | DRG 560 ==
LOC: VRC 19:13
PROVIDERS: ADMIT Physical Medicine & Rehabilitation; ATTEND Internal Medicine Nephrology
DX: S82.841D Displaced bimalleolar fracture of right lower leg, subsequent encounter for closed fracture with routine healing (principal); N17.9 Acute kidney failure, unspecified; K50.90 Crohn's disease, unspecified, without complications; A04.72 Enterocolitis due to Clostridium difficile, not specified as recurrent; N39.0 Urinary tract infection, site not specified; E87.3 Alkalosis; B37.49 Other urogenital candidiasis; R53.81 Other malaise; F31.9 Bipolar disorder, unspecified; F41.8 Other specified anxiety disorders; D64.9 Anemia, unspecified; M79.7 Fibromyalgia; H54.8 Legal blindness, as defined in USA; K29.70 Gastritis, unspecified, without bleeding; E03.9 Hypothyroidism, unspecified; Z85.42 Personal history of malignant neoplasm of other parts of uterus; Z74.09 Other reduced mobility; E83.42 Hypomagnesemia; J47.9 Bronchiectasis, uncomplicated; F43.10 Post-traumatic stress disorder, unspecified; G47.33 Obstructive sleep apnea (adult) (pediatric); B35.1 Tinea unguium; M20.42 Other hammer toe(s) (acquired), left foot; N39.498 Other specified urinary incontinence
CPT/HCPCS: 71045; 80048; 80053; 80170; 81001; 82565; 83735; 84100; 84520; 85025; 87070; 87081; 87086; 94640; 94664; 97110; 97112; 97116; 97163; 97167; 97530; 97535; 97542; J1580; J1650